=== PATIENT | male | born 1945 | race Caucasian/White ===

== ENCOUNTER → 2016-10-19 | Outpatient (CLI) | payer OTHER ==
[~2016-10-19] VITALS: Ht 162.6 cm; Wt 97.8 kg
[~2016-10-19] MED LIST: ADVAIR 250-501 EACH IH; ALBUTEROL NEB; ALBUTEROL SUL5 MG/M1 IH; ALBUTEROL2.5 MG/0.5 INH; AMBIEN 10 MG TA10 MG PO; AMBIEN 5 MG TABL5 M1 PO; AMITRIPTYLINE H25 M2 PO; AMITRIPTYLINE H50 M2 PO; ATORVASTATIN PO; AVAPRO 150 MG150 M1 PO; BENEFIBER1 EAC1 PO; CIPRO500 MG PO; COMPOUNDED CREAM; COUMADIN 3 MG TA3 MG PO; DIOVAN 80 MG TA80 M1 PO; DIOVAN PO; ENDOCET 10-3251 EACH PO; FAMCYCLOVIR 50500 M1 PO; FLOMAX0.4 MG PO; LASIX 40 MG TAB40 M2 PO; LEVAQUIN 500 M500 M2 PO; LIDODERM 5%1 PATC1 TOP; LIPITOR 20 MG T20 M1 PO; LYRICA 75 MG CA75 MG PO; MELOXICAM7.5 MG PO; METFORMIN PO; MIRALAX17 GM PO; NEURONTIN 300300 M1 PO; NORVASC10 MG PO; OXYCODONE HCL 55 MG PO; OXYCODONE HCL E10 MG PO; OXYCODONE-ACET1 EAC2 PO; OXYCODONE-ACET1 EACH PO; OXYCONTIN10 M1 PO; OXYCONTIN20 M1 PO; OXYGEN; OXYGEN MISCELL; PERCOCET 10-321 EACH PO; PERCOCET PO; POTASSIUM20 PO; PREDNISONE 10 M10 MG PO; PREDNISONE 20 M20 MG PO; PREDNISONE 5 MG5 M1 PO; ROXICODONE5 MG PO; SENOKOT-S1 TA1 PO; SERTRALINE HCL50 MG PO; SPIRIVA INH; TAMIFLU75 MG PO; TRIAMTERENE-HC1 EAC1 PO; VALIUM5 MG PO; VENTOLIN HFA 1818 GM INH; VENTOLIN HFA INH8 GM IH; VOLTAREN GEL 1100 G1 TOP; VOLTAREN GEL 1100 G2 TOP; VOLTAREN GEL 1100 GM TOP; VYTORIN 10-101 EACH PO; VYTORIN 10-201 EACH PO; ZOLOFT100 MG PO; ZOLOFT50 MG PO
--- NOTE | ~2016-10-19 | HPC ---
[facility] [address] [place] [address] PAIN MANAGEMENT CONSULTATION Name: DONNY GARCIA Room #: REG NICK CalvoJocy#: [id number] Admission: 10/19/16 Attend Phys: Spenser Leyva MD Discharge: Date of : 41 Report #: [id number] THIS REPORT FOR: //name// CC: RIVER Leyva DATE OF SERVICE: 10/19/2016 Followup visit for chronic low back pain with radiculopathy and diffuse osteoarthritis. 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 He has had severe macular degeneration and had been progressively developing problems with his right eye. His left eye is now also considered to be legally blind, although he has some recognition of shapes, color and is able to negotiate spaces. He is unable to read other than with the use of magnifying glass in the high lighting. Medication is being provided for his chronic pain. He has mid back pain, right shoulder pain, bilateral knee pain. Injections have been now some time given his good response to medication. CURRENT MEDICATIONS: OxyContin 10 mg b.i.d., oxycodone 5/325 number 2 tablets per day for breakthrough pain. This totals 30 mg of oxycodone for a total of 45 morphine mg equivalents per day. We discussed the importance of safeguarding all medication, we have reviewed the opioid crisis, we have reviewed the CDC guidelines today in some detail. PHYSICAL EXAMINATION: He is on 2 liters of nasal canula and walks without dyspnea. He denies any pain today and his pain score is 0 with movement. He has taken his medications. Blood pressure is 115/59, heart rate is 115, BMI is 37.0. IMPRESSION: 1. Chronic back pain related to spondylosis. 2. History of compression fracture, chronic T5. 3. Asthma and chronic obstructive pulmonary disease, currently on oxygen round the clock. 4. Type 2 diabetes. 5. Osteoporosis. 6. Macular degeneration with blindness. [facility] [address] [place] [address] PAIN MANAGEMENT CONSULTATION Name: LACHO GARCIACarol Medina Room #: REG NICK Montoya#: [id number] Admission: 10/19/16 Attend Phys: Spenser Leyva MD Discharge: Date of : 43 Report #: [id number] PLAN: I have renewed his medications under terms of our opioid agreement. I plan to see him back in the clinic in 3 months. By: 1713 0847 Spenser Leyva MD /nt
[2016-10-19 13:09] VITALS: BP 115/59
== END | disposition home or self-care (01) ==
LOC: PAIN 07:47
DX: M54.9 Dorsalgia, unspecified (principal); G89.29 Other chronic pain; M47.896 Other spondylosis, lumbar region; Z87.311 Personal history of (healed) other pathological fracture; J44.9 Chronic obstructive pulmonary disease, unspecified; J45.909 Unspecified asthma, uncomplicated; E11.9 Type 2 diabetes mellitus without complications; M81.0 Age-related osteoporosis without current pathological fracture; H35.30 Unspecified macular degeneration; Z87.891 Personal history of nicotine dependence

== ENCOUNTER 2016-12-01 17:32 | Inpatient (IN) | payer OTHER ==
[~2016-12-01] VITALS: Ht 162.6 cm; Wt 100.0 kg
[2016-12-01] VITALS (8 sets, daily range): BP systolic 78–151; BP diastolic 52–70
--- NOTE | ~2016-12-01 | EKG ---
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
--- NOTE | ~2016-12-01 | H ---
[facility] [place] [address] HISTORY AND PHYSICAL Name: DONNY GARCIA Room #: 251-P [facility] IN M.R.#: [id number] Admission: 12/01/16 Attend Phys: Lauro Mandujano MD Discharge: Date of : 43 Report #: [id number] THIS REPORT FOR: //name// CC: Lauro Mandujano DATE OF SERVICE: 12/02/2016 DATE OF SERVICE: 12/02/2016 CHIEF COMPLAINT: Shortness of air. HISTORY OF PRESENT ILLNESS: The patient is a 71-year-old male well known to me who presented to emergency department with increasing shortness of air, awoken from sleep in the morning yesterday. He felt some low back pain and pain in his upper back as well. He does have a history of COPD. He is not aware of any fevers or chills. He uses home oxygen, uses around 2-3 liters. He had raised to 5 prior to coming in. He has not had any significant sputum production or fevers. PAST MEDICAL HISTORY: 1. COPD. 2. Non-insulin dependent diabetes mellitus. 3. Hypertension. 4. Hyperlipidemia. 5. Osteoporosis. 6. Degenerative arthritis. 7. Prior ruptured diverticula with colostomy in 2005, reversal in 2006. 8. Depression. 9. Prior kidney stones. 10. Prior compression fracture with kyphoplasty in 2016. 11. Chronic back pain. MEDICATIONS: OxyContin 10 mg b.i.d., Percocet 5/325 p.r.n., albuterol solution q.i.d., Advair 250/50 one puff b.i.d., prednisone 20 mg a day, Ventolin HFA 2 puffs q. 4 p.r.n., valsartan 160 mg a day, Lasix 40 mg a day, Zoloft 50 mg a day, atorvastatin 20 mg a day, Spiriva 1 cap daily, potassium 20 mEq a day, Voltaren gel q.i.d. ALLERGIES: CODEINE, PIPERACILLIN, GABAPENTIN. SOCIAL HISTORY: He is a nonsmoker, nondrinker, no recreational drugs. REVIEW OF SYSTEMS: CONSTITUTIONAL: Again, no fever or chills. HEENT: No headaches or visual changes. CHEST: Per above. [address] [address] HISTORY AND PHYSICAL Name: DONNY GARCIA Room #: [address] [place] [address] [place] [facility].#: [id number] Admission: 12/01/16 Attend Phys: Lauro Mandujano MD Discharge: Date of : 43 Report #: [id number] GASTROINTESTINAL: No nausea, vomiting, diarrhea or constipation. GENITOURINARY: No burning or frequency. EXTREMITIES: No new swelling or joint pain. SKIN: No new rashes or wounds. NEUROLOGIC: No new numbness or weakness. PHYSICAL EXAMINATION: VITAL SIGNS: In the ER, blood pressure initially 78/52, is currently 99/57. He was on 5 liters of O2 and his sats were 96%. His pulse was 122, his respiratory rate was 20. He was afebrile. GENERAL: Currently, the patient is awake and alert, in no acute distress. He is feeling more comfortable. His mucous membranes are dry. NECK: Supple without increased central venous pressure. CHEST: Shows decreased breath sounds in the bases. No focal crackles or wheezes. CARDIOVASCULAR: Tachycardia with rate of 100 right now. ABDOMEN: Morbidly obese, but soft, nondistended, nontender, no masses. Bowel sounds are active. EXTREMITIES: Show 1+ edema in both extremities. His pulses are intact. LABORATORY DATA: His EKG shows sinus tachycardia with a rate of 119, no ST segment changes. His ABG; pH 7.397, pCO2 of 38.8 and pO2 of 89. His lactic acid was 3.51 on ABG on admission. His sodium 136, potassium 4.0, chloride 100, bicarbonate 25, BUN 40, creatinine 2.7, glucose 179, calcium 8.8. Troponin less than 0.04. Urinalysis is essentially normal. His repeat lactic acid level was normal at 1.17. Chest x-ray shows infrahilar opacities likely scarring versus atelectasis versus early infiltrate. ASSESSMENT: 1. Severe sepsis with septic shock, started on the fluid bolus per protocol. I suspect pulmonary is source. We gave him a dose of Levaquin. We will do repeat chest x-ray this morning, do breathing treatments. 2. Acute kidney injury due to septic shock, fluids. We will monitor that, should improve. He is making urine. 3. Leukocytosis due to septic shock, as above. 4. Chronic obstructive pulmonary disease. Continue his breathing treatments and steroids. 5. History of coronary artery disease, we will consult cardiology just to make sure we are not overlooking anything. 6. Chronic back pain. We will continue his oxycodone or OxyContin. By: 0712 0858 Lauro Mandujano MD /nt
--- NOTE | ~2016-12-01 | 2DMMODE ---
[facility] [place] [address] 2 D/M-MODE ECHOCARDIOGRAM Name: DONNY GARCIA Carol Room #: 456-P [facility] [place] [facility]#: [id number] Admission: 12/01/16 Attend Phys: Lauro Mandujano, Discharge: Date of : 43 Date of Service: 12/03/16 0824 Report #: [id number] THIS REPORT FOR: //name// APPROVED REPORT Study performed: 12/03/2016 05:43:42 EXAM: Comprehensive 2D, Doppler, and color-flow Echocardiogram Patient Location: Bedside Room #: 251 Status: routine Other Information Study Quality: Adequate Indications Dyspnea. Hx: COPD, HTN, HLP, DM, obesity 2D Dimensions RVDd: 37.48 mm LVEF(%): 52.90 (>50%) IVSd: 13.26 (7-11mm) LVOT Diam: 19.61 (18-24mm) LVDd: 52.69 mm PWd: 11.82 (7-11mm) Ascending Ao: 32.89 (22-36mm) LVDs: 38.24 (25-40mm) Aortic Root: 32.76 mm Pedersen's LVEF: 52.90 % Volumes Left Atrial Volume (Systole) Single Plane 4CH: 31.96 mL Single Plane 2CH: 47.19 mL LA ESV Index: 21.00 mL/m2 Aortic Valve AoV Peak Jermain.: 1.66 m/s AO Peak Gr.: 10.99 mmHg LVOT Max P.98 mmHg LVOT Max V: 1.32 m/s MELISA Vmax: 2.41 cm2 Mitral Valve E/A Ratio: 0.6 MV Decel. Time: 213.86 ms MV E Max Jermain.: 0.79 m/s MV A Jermain.: 1.30 m/s MV PHT: 62.02 ms IVRT: 55.36 ms [facility] [employer] [address] 2 D/M-MODE ECHOCARDIOGRAM Name: DONNY GARCIA Carol Room #: 456-P [facility] IN [facility]#: [id number] Admission: 12/01/16 Attend Phys: Lauro Mandujano, Discharge: Date of : 43 Date of Service: 12/03/16 0824 Report #: [id number] Pulmonary Valve PV Peak Jermain.: 1.08 m/s PV Peak Gr.: 4.67 mmHg Pulmonary Vein P Vein S: 0.66 m/s P Vein A: 0.48 m/s P Vein D: 0.55 m/s P Vein A Dur.: 120.0 msec P Vein S/D Ratio: 1.20 Tricuspid Valve TR Peak Jermain.: 3.11 m/s TR Peak Gr.: 38.59 mmHg Left Ventricle The left ventricle is normal size. There is normal LV segmental wall motion. Mild concentric left ventricular hypertrophy. Left ventricular systolic function is normal. LVEF is 55%. Mild diastolic dysfunction is present (impaired relaxation pattern). Right Ventricle The right ventricle is normal size. The right ventricular systolic function is normal. Atria The left atrium size is normal. The right atrium size is normal. Aortic Valve Aortic valve is mildly calcified. No aortic regurgitation is present. There is no aortic valvular stenosis. Mitral Valve Mitral valve leaflets are mildly calcified. Mild mitral regurgitation. No evidence of mitral valve stenosis. Tricuspid Valve The tricuspid valve is normal in structure. There is mild tricuspid regurgitation. There is mild-moderate pulmonary hypertension with an estimated PAP of 39mmHg plus the right atrial pressure. Pulmonic Valve Pulmonic valve is not well visualized. Trace pulmonic regurgitation. Great Vessels The aortic root is normal in size. The ascending aorta is normal in [facility] [address] [place] [address] 2 D/M-MODE ECHOCARDIOGRAM Name: DONNY GARCIA Room #: 456-P [facility] [place] [facility]#: [id number] Admission: 12/01/16 Attend Phys: Lauro Mandujano, Discharge: Date of : 41 Date of Service: 12/03/16 0824 Report #: [id number] size. IVC is not well visualized. Pericardium There is no pericardial effusion. <Conclusion> The left ventricle is normal size. Mild concentric left ventricular hypertrophy. Left ventricular systolic function is normal. The right ventricle is normal size. The left atrium size is normal. The right atrium size is normal. Aortic valve is mildly calcified. There is no aortic valvular stenosis. Mild mitral regurgitation. There is mild tricuspid regurgitation. There is mild-moderate pulmonary hypertension with an estimated PAP of 39mmHg plus the right atrial pressure. <ELECTRONICALLY SIGNED> By: David Crane MD 12/03/16823 3 3 David Crane MD /INF
[2016-12-01 18:03] LABS: ABSOLUTE NEUTROPHILS 12.9 thou/uL (1.4-8.2); BASOPHILS 0.7 % (0.0-2.0); EOSINOPHILS 1.3 % (0.0-3.0); HEMATOCRIT 34.6 % (42.0-52.0); HEMOGLOBIN 11.4 gm/dL (14.0-18.0); LYMPHOCYTES 10.5 % (24.0-44.0); MCH 29.1 pg (26.0-34.0); MCHC 32.9 g/dL (28.0-37.0); MCV 88.3 fL (80.0-100.0); MONOCYTES 9.1 % (1.0-8.0); PLATELET COUNT 196 thou/uL (150-400); POLYS 78.4 % (36.0-66.0); RBC 3.92 mil/uL (4.50-6.00); RDW 15.7 % (10.5-14.5); WBC 16.4 thou/uL (4.0-11.0)
[2016-12-01 18:09] LABS: CALCIUM 8.8 mg/dL (8.5-10.1); CREATININE 2.7 mg/dL (0.7-1.3)
[2016-12-01 18:25] LABS: MANUAL DIFF NO
[2016-12-01 19:05] LABS: URINE BILIRUBIN NEGATIVE (Negative); URINE BLOOD TRACE (Negative); URINE COLOR YELLOW; URINE GLUCOSE-RANDOM* NEGATIVE (Negative); URINE KETONES NEGATIVE (Negative); URINE NITRITE NEGATIVE (Negative); URINE PROTEIN (DIPSTICK) NEGATIVE (Negative); URINE SPECIFIC GRAVITY 1.025 (1.003-1.035); URINE UROBILINOGEN 0.2 E.U./dl (0.2-1.0)
[2016-12-01 19:14] LABS: ABG SAMPLE TYPE ARTERIAL; BE(vivo) -1.3 mmol/L (-2 to +3); HCO3 23.3 mmol/L (22.0-26.0); O2(CT) 16.3 mL/dL (15.0-23.0); PCO2 38.8 mmHg (35.0-45.0); PO2 89.3 mmHg (80.0-100.0); pH 7.397 (7.360-7.450); sO2 96.8 % (92.0-98.0); tCO2 24.5 mmol/L (24.0-30.0)
[2016-12-01 19:15] LABS: LACTATE 3.51 mmol/L (0.5-2.0); STICK SITE R.RADIAL
[2016-12-01 19:49] LABS: ALBUMIN 3.5 g/dL (3.4-5.0); DIRECT BILIRUBIN 0.1 mg/dL (<0.1-0.3); TOTAL BILIRUBIN 0.5 mg/dL (<0.1-1.0); TOTAL PROTEIN 6.7 g/dL (6.4-8.2)
[2016-12-02] VITALS (24 sets, daily range): BP systolic 78–136; BP diastolic 48–85
[2016-12-02 07:04] LABS: HEMATOCRIT 30.5 % (42.0-52.0); HEMOGLOBIN 10.2 gm/dL (14.0-18.0); MCH 29.8 pg (26.0-34.0); MCHC 33.5 g/dL (28.0-37.0); MCV 89.1 fL (80.0-100.0); RBC 3.42 mil/uL (4.50-6.00); RDW 15.4 % (10.5-14.5)
[2016-12-02 07:25] LABS: CALCIUM 7.7 mg/dL (8.5-10.1); CREATININE 2.2 mg/dL (0.7-1.3)
[2016-12-02 07:29] LABS: POTASSIUM 5.2 mmol/L (3.5-5.1)
[2016-12-02] MEDS ORDERED: FLOMAX0.4 MG PO (15:29)
[2016-12-02] MEDS ORDERED: VENTOLIN HFA 1818 GM INH (15:34)
[2016-12-02] MEDS ORDERED: OXYGEN MISCELL (15:36)
[2016-12-02] MEDS ORDERED: ADVAIR 250-501 EACH INH (15:41)
[2016-12-03] VITALS (15 sets, daily range): BP systolic 81–132; BP diastolic 55–73
[2016-12-03 04:37] LABS: CALCIUM 7.7 mg/dL (8.5-10.1); CREATININE 1.7 mg/dL (0.7-1.3); POTASSIUM 4.9 mmol/L (3.5-5.1)
[2016-12-04 07:36] VITALS: BP 123/71
[2016-12-04 12:00] VITALS: BP 116/58
[2016-12-04 14:57] VITALS: BP 116/58
[2016-12-04 15:10] VITALS: BP 105/62
[2016-12-04 19:44] VITALS: BP 121/55
[2016-12-05 04:03] VITALS: BP 128/76
[2016-12-05] MEDS ORDERED: LEVAQUIN 500 M500 M2 PO (07:00)
[2016-12-05 07:25] VITALS: BP 149/75
[2016-12-05 08:54] LABS: HEMATOCRIT 27.2 % (42.0-52.0); HEMOGLOBIN 9.3 gm/dL (14.0-18.0); MCH 30.1 pg (26.0-34.0); MCHC 34.2 g/dL (28.0-37.0); MCV 88.2 fL (80.0-100.0); RBC 3.09 mil/uL (4.50-6.00); RDW 15.9 % (10.5-14.5); WBC 8.5 thou/uL (4.0-11.0)
[2016-12-05 09:00] LABS: CALCIUM 7.5 mg/dL (8.5-10.1); CREATININE 1.3 mg/dL (0.7-1.3); POTASSIUM 3.6 mmol/L (3.5-5.1)
[2016-12-05 11:44] VITALS: BP 127/73
[2016-12-05 15:56] VITALS: BP 144/76
[2016-12-05 19:44] VITALS: BP 129/65
[2016-12-06 04:10] VITALS: BP 122/52
[2016-12-06 07:48] VITALS: BP 121/69
[2016-12-06 08:57] VITALS: BP 116/58
== END 2016-12-06 12:35 | disposition home health service (06) | DRG 871 ==
LOC: ER 17:32 → EROBS 19:29 → ICU 19:29 → 4W 12-03 15:43
PROVIDERS: Emergency Medicine; Family Medicine
DX: A41.9 Sepsis, unspecified organism (principal); R65.21 Severe sepsis with septic shock; J18.9 Pneumonia, unspecified organism; J96.01 Acute respiratory failure with hypoxia; N17.9 Acute kidney failure, unspecified; J44.1 Chronic obstructive pulmonary disease with (acute) exacerbation; J44.0 Chronic obstructive pulmonary disease with (acute) lower respiratory infection; E11.22 Type 2 diabetes mellitus with diabetic chronic kidney disease; I12.9 Hypertensive chronic kidney disease with stage 1 through stage 4 chronic kidney disease, or unspecified chronic kidney disease; N18.9 Chronic kidney disease, unspecified; E78.5 Hyperlipidemia, unspecified; M81.0 Age-related osteoporosis without current pathological fracture; F32.9 Major depressive disorder, single episode, unspecified; G89.29 Other chronic pain; M48.00 Spinal stenosis, site unspecified; M19.90 Unspecified osteoarthritis, unspecified site; I25.10 Atherosclerotic heart disease of native coronary artery without angina pectoris; K57.90 Diverticulosis of intestine, part unspecified, without perforation or abscess without bleeding; Z96.659 Presence of unspecified artificial knee joint; Z98.52 Vasectomy status; Z87.891 Personal history of nicotine dependence; Z79.899 Other long term (current) drug therapy; Z93.3 Colostomy status; Z87.442 Personal history of urinary calculi; Z88.6 Allergy status to analgesic agent; Z88.8 Allergy status to other drugs, medicaments and biological substances; Z88.1 Allergy status to other antibiotic agents
CPT/HCPCS: 10047; 10078

== ENCOUNTER → 2016-12-15 | Outpatient (CLI) | payer OTHER ==
[~2016-12-15] MED LIST changes: +ADVAIR 250-501 EACH INH
== END ==
LOC: RAD 13:08
DX: R05 Cough (principal)

== ENCOUNTER 2016-12-19 20:34 | Observation (INO) | payer OTHER ==
[~2016-12-19] VITALS: Ht 162.6 cm; Wt 97.5 kg
--- NOTE | ~2016-12-19 | EKG ---
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 : 1945 Requested By: Augusto Blevins Order Number: [id number] MD: Franklin Morrison Measurements Intervals [place] Rate: 112 P: 50 [place]: 147 QRS: -82 QRSD: 144 T: 32 QT: 353 QTc: 482 Interpretive Statements Sinus tachycardia RBBB and LAFB Compared to ECG 12/01/2016 17:43:47 No significant changes Electronically Signed On 12-21-2016 8:34:39 CDT by Franklin Morrison [email or web address] <ELECTRONICALLY SIGNED> By: Franklin Morrison MD, [facility] 12/21/16 0834 44 44 Franklin Morrison MD, [facility] /EPI
[2016-12-19 20:35] VITALS: BP 118/54
[2016-12-19 21:26] LABS: HEMATOCRIT 26.5 % (42.0-52.0); HEMOGLOBIN 9.1 gm/dL (14.0-18.0); MCH 30.2 pg (26.0-34.0); MCHC 34.3 g/dL (28.0-37.0); MCV 88.2 fL (80.0-100.0); RBC 3.01 mil/uL (4.50-6.00); RDW 15.8 % (10.5-14.5); WBC 10.1 thou/uL (4.0-11.0)
[2016-12-19 21:34] LABS: ANION GAP 8 mmol/L (7-16); BUN 36 mg/dL (7-18); CALCIUM 8.8 mg/dL (8.5-10.1); CHLORIDE 103 mmol/L (98-107); CO2 26 mmol/L (21-32); CREATININE 2.2 mg/dL (0.7-1.3); GLUCOSE 191 mg/dL (74-106); POTASSIUM 4.5 mmol/L (3.5-5.1); SODIUM 137 mmol/L (136-145)
[2016-12-19 21:42] LABS: TROPONIN-I < 0.04 ng/mL (<0.04-0.07)
[2016-12-19 23:40] VITALS: BP 122/45
[2016-12-20 00:15] VITALS: BP 130/65
[2016-12-20 04:12] VITALS: BP 113/57
[2016-12-20 08:30] VITALS: BP 90/50
[2016-12-20 16:00] VITALS: BP 90/51
[2016-12-20 20:00] VITALS: BP 100/56
[2016-12-21 04:00] VITALS: BP 97/51
[2016-12-21 06:21] LABS: HEMATOCRIT 25.2 % (42.0-52.0); HEMOGLOBIN 8.6 gm/dL (14.0-18.0); MCH 30.3 pg (26.0-34.0); MCHC 34.3 g/dL (28.0-37.0); MCV 88.3 fL (80.0-100.0); RBC 2.85 mil/uL (4.50-6.00); RDW 16.5 % (10.5-14.5); WBC 7.3 thou/uL (4.0-11.0)
[2016-12-21 06:36] LABS: CALCIUM 7.6 mg/dL (8.5-10.1); CREATININE 1.7 mg/dL (0.7-1.3); POTASSIUM 4.2 mmol/L (3.5-5.1)
[2016-12-21 08:00] VITALS: BP 119/70
[2016-12-21 08:05] VITALS: BP 102/50
[2016-12-21 08:10] VITALS: BP 127/78
== END 2016-12-21 15:23 | disposition home health service (06) ==
LOC: ER 20:34 → EROBS 23:03 → 4E 23:03
PROVIDERS: Emergency Medicine; Family Medicine
DX: E86.0 Dehydration (principal); E11.22 Type 2 diabetes mellitus with diabetic chronic kidney disease; I12.9 Hypertensive chronic kidney disease with stage 1 through stage 4 chronic kidney disease, or unspecified chronic kidney disease; N18.9 Chronic kidney disease, unspecified; N17.9 Acute kidney failure, unspecified; I95.1 Orthostatic hypotension; E78.5 Hyperlipidemia, unspecified; M19.90 Unspecified osteoarthritis, unspecified site; J44.9 Chronic obstructive pulmonary disease, unspecified; Z23 Encounter for immunization

== ENCOUNTER → 2017-02-04 | Outpatient (CLI) | payer OTHER ==
--- NOTE | ~2017-02-04 | HPC ---
[facility] [address] [address] PAIN MANAGEMENT CONSULTATION Name: DONNY GARCIA Room #: REG NICK Lindsay#: [id number] Admission: 02/04/17 Attend Phys: Spenser Leyva MD Discharge: Date of : 43 Report #: [id number] THIS REPORT FOR: //name// CC: Marlena Leyva DATE OF SERVICE: 02/04/2017 DATE OF REGISTRATION: 02/04/2017. REASON FOR VISIT: Followup visit for management of high-risk medication. SUBJECTIVE: The patient returns to pain clinic today for renewal of his pain medication. Providing with OxyContin 10 mg twice a day and oxycodone 5/325 also 2 tablets per day for breakthrough pain in order to treat spondylitic pain. He is doing well with this. His pain score today is 0 with medication. He is grateful for the relief that he gets. He has been quite sick over the course of the last month or so. He had hypotension and pneumonia. He was admitted to the hospital, was in the ICU for 3 days and was in the hospital for a total of 6 days. He was discharged to home after that stay. Unfortunately, he had acute renal insufficiency related to hypovolemia which responded to volume. He is now back home monitoring his fluid intakes carefully. He has been suffering with loss of vision. He has been getting injections for problems with macular degeneration. 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 He is handling this unfortunate injury with bebe and courage. He is here today with his , Samantha who has been very supportive. MEDICATIONS: Reviewed and reconciled. All medications prescribed by myself and Dr. Mandujano. He is on 3 L of nasal cannula oxygen continuously and has an oxygen concentrator. PHYSICAL EXAMINATION: GENERAL: He is pleasant, outgoing. His history is clear, and he does not appear to be overmedicated or depressed today. He is in a wheelchair. VITAL SIGNS: His blood pressure is 109/56, heart rate is 104. BMI is over 35. CHEST: Clear with distant breath sounds. He is wearing nasal cannula oxygen. HEART: His cardiac rhythm is regular. MUSCULOSKELETAL: He has tenderness throughout his right mid back, tenderness in both knees and ankles. Mild edema is noted. There is some pain in his right shoulder as well as in his wrists. IMPRESSION: [facility] [address] [place] [address] PAIN MANAGEMENT CONSULTATION Name: DONNY GARCIA Room #: REG NICK ThompsonTavo#: [id number] Admission: 02/04/17 Attend Phys: Spenser Leyva MD Discharge: Date of : 43 Report #: [id number] 1. Chronic back pain related to spondylosis. 2. Osteoarthritis with pain in multiple joints including shoulder, wrists and knees. 3. Asthma, chronic obstructive pulmonary disease on hxwnt-mrv-ssknq oxygen. 4. Type 2 diabetes. 5. Macular degeneration with blindness. 6. Management of high-risk medication under terms of an opioid agreement. Medications were renewed under terms of our agreement. The opioid crisis was reviewed, and the importance of safeguarding medications discussed. Plan to see him back in 3 months. By: 1658 [id number] Spenser Leyva MD /nt
[2017-02-04 13:44] VITALS: BP 109/56
== END | disposition home or self-care (01) ==
LOC: PAIN 01-14 09:20
DX: Z76.0 Encounter for issue of repeat prescription (principal); M47.896 Other spondylosis, lumbar region; M54.9 Dorsalgia, unspecified; G89.29 Other chronic pain; E11.319 Type 2 diabetes mellitus with unspecified diabetic retinopathy without macular edema; J44.9 Chronic obstructive pulmonary disease, unspecified; M19.90 Unspecified osteoarthritis, unspecified site; H35.30 Unspecified macular degeneration; Z79.891 Long term (current) use of opiate analgesic; Z88.8 Allergy status to other drugs, medicaments and biological substances

== ENCOUNTER → 2017-03-16 | Outpatient (CLI) | payer OTHER | LOC: RAD 13:49 | DX: S22.32XA Fracture of one rib, left side, initial encounter for closed fracture (principal); J18.9 Pneumonia, unspecified organism; J44.9 Chronic obstructive pulmonary disease, unspecified; J98.11 Atelectasis; X58.XXXA Exposure to other specified factors, initial encounter; Y93.89 Activity, other specified; Y92.89 Other specified places as the place of occurrence of the external cause; Y99.8 Other external cause status ==

== ENCOUNTER 2017-03-20 07:42 | Inpatient (IN) | payer OTHER ==
[~2017-03-20] VITALS: Ht 160 cm; Wt 96.2 kg
--- NOTE | ~2017-03-20 | EKG ---
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 : 1945 Requested By: Augusto Blevins Order Number: [id number] MD: Franklin Morrison Measurements Intervals [place] Rate: 100 P: 43 [place]: 177 QRS: -90 QRSD: 150 T: 17 QT: 374 QTc: 483 Interpretive Statements Sinus tachycardia Atrial premature complex RBBB and LAFB Compared to ECG 12/19/2016 20:45:31 Atrial premature complex(es) now present Electronically Signed On 03-20-2017 12:37:35 CDT by Franklin Morrison [email or web address] <ELECTRONICALLY SIGNED> By: Franklin Morrison MD, [facility] 03/20/17 1237 7 Franklin Morrison MD, [facility] /EPI
[2017-03-20 07:46] VITALS: BP 132/61
[2017-03-20 09:22] LABS: HEMATOCRIT 31.3 % (42.0-52.0); HEMOGLOBIN 10.5 gm/dL (14.0-18.0); MCH 29.5 pg (26.0-34.0); MCHC 33.5 g/dL (28.0-37.0); MCV 88.2 fL (80.0-100.0); PLATELET COUNT 256 thou/uL (150-400); RBC 3.55 mil/uL (4.50-6.00); RDW 15.4 % (10.5-14.5); WBC 13.9 thou/uL (4.0-11.0)
[2017-03-20 09:23] LABS: MANUAL DIFF YES
[2017-03-20 09:29] LABS: ANION GAP 8 mmol/L (7-16); BUN 38 mg/dL (7-18); CALCIUM 8.8 mg/dL (8.5-10.1); CHLORIDE 100 mmol/L (98-107); CO2 24 mmol/L (21-32); CREATININE 2.3 mg/dL (0.7-1.3); GLUCOSE 103 mg/dL (74-106); POTASSIUM 4.7 mmol/L (3.5-5.1); SODIUM 132 mmol/L (136-145)
[2017-03-20 09:38] LABS: TROPONIN-I < 0.04 ng/mL (<0.04-0.07)
[2017-03-20] MEDS ORDERED: DIOVAN 80 MG TA80 M1 PO (09:46)
[2017-03-20] MEDS ORDERED: CEFDINIR300 MG PO (09:47)
[2017-03-20] MEDS ORDERED: OXYCODONE HCL15 MG PO ×2 (09:51→14:56)
[2017-03-20 09:54] LABS: ABSOLUTE NEUTROPHILS 8.9 thou/uL (1.4-8.2); ANISOCYTOSIS 2+; METAMYELOCYTES 1 %; POLYCHROMASIA OCCASIONAL; TOTAL CELL COUNT 100
[2017-03-20 11:38] VITALS: BP 97/43
[2017-03-20 12:05] VITALS: BP 88/45
[2017-03-20 12:15] VITALS: BP 119/53
[2017-03-20 16:00] VITALS: BP 119/43
[2017-03-20 19:14] VITALS: BP 122/47
[2017-03-21 03:27] VITALS: BP 97/52
[2017-03-21 04:34] LABS: HEMATOCRIT 28.5 % (42.0-52.0); HEMOGLOBIN 9.5 gm/dL (14.0-18.0); MCH 29.2 pg (26.0-34.0); MCHC 33.3 g/dL (28.0-37.0); MCV 87.6 fL (80.0-100.0); PLATELET COUNT 227 thou/uL (150-400); RBC 3.25 mil/uL (4.50-6.00); RDW 14.9 % (10.5-14.5); WBC 11.3 thou/uL (4.0-11.0)
[2017-03-21 04:37] LABS: MANUAL DIFF YES
[2017-03-21 04:45] LABS: CALCIUM 8.6 mg/dL (8.5-10.1); CREATININE 2.1 mg/dL (0.7-1.3); POTASSIUM 4.7 mmol/L (3.5-5.1)
[2017-03-21 06:26] LABS: ABSOLUTE NEUTROPHILS 8.5 thou/uL (1.4-8.2); ANISOCYTOSIS SLIGHT; TOTAL CELL COUNT 100
[2017-03-21 09:05] VITALS: BP 111/43
[2017-03-21 16:00] VITALS: BP 107/56
[2017-03-21 19:24] VITALS: BP 97/52
[2017-03-22 04:30] VITALS: BP 114/60
[2017-03-22 05:20] VITALS: BP 163/75
[2017-03-22 06:23] LABS: HEMATOCRIT 27.5 % (42.0-52.0); HEMOGLOBIN 9.4 gm/dL (14.0-18.0); MCH 29.7 pg (26.0-34.0); MCHC 34.2 g/dL (28.0-37.0); MCV 86.8 fL (80.0-100.0); PLATELET COUNT 235 thou/uL (150-400); RBC 3.17 mil/uL (4.50-6.00); RDW 14.8 % (10.5-14.5); WBC 9.8 thou/uL (4.0-11.0)
[2017-03-22 06:40] LABS: CALCIUM 8.7 mg/dL (8.5-10.1); CREATININE 1.6 mg/dL (0.7-1.3); MANUAL DIFF YES; POTASSIUM 4.4 mmol/L (3.5-5.1)
[2017-03-22 07:53] LABS: ABSOLUTE NEUTROPHILS 6.9 thou/uL (1.4-8.2); ANISOCYTOSIS 1+; METAMYELOCYTES 2 %; OVALOCYTES FEW; TOTAL CELL COUNT 100
[2017-03-22 08:00] VITALS: BP 125/47
[2017-03-22 15:00] VITALS: BP 120/62
[2017-03-22 20:00] VITALS: BP 121/55
[2017-03-23 04:07] VITALS: BP 132/54
[2017-03-23 08:54] VITALS: BP 152/58
[2017-03-23 15:30] VITALS: BP 124/63
[2017-03-23 19:29] VITALS: BP 137/62
[2017-03-24 01:31] VITALS: BP 126/59
[2017-03-24 03:34] VITALS: BP 139/62
[2017-03-24 07:30] VITALS: BP 145/60
[2017-03-24] MEDS ORDERED: VALIUM5 MG PO (08:06)
[2017-03-24 12:25] VITALS: BP 145/60
[2017-03-24 13:37] VITALS: BP 145/60
== END 2017-03-24 15:40 | disposition home health service (06) | DRG 542 ==
LOC: ER 07:42 → 4N 11:32 → EROBS 11:32 → 4N 12:07 → ENTRNSPT 03-24 15:32 → EDTRNSPTSTS 03-24 15:35 → 4N 03-24 15:40
PROVIDERS: Emergency Medicine; Internal Medicine Endocrinology, Diabetes & Metabolism
DX: M80.08XA Age-related osteoporosis with current pathological fracture, vertebra(e), initial encounter for fracture (principal); N17.0 Acute kidney failure with tubular necrosis; E11.9 Type 2 diabetes mellitus without complications; I10 Essential (primary) hypertension; E78.5 Hyperlipidemia, unspecified; J44.9 Chronic obstructive pulmonary disease, unspecified; M19.90 Unspecified osteoarthritis, unspecified site; G89.29 Other chronic pain; H91.93 Unspecified hearing loss, bilateral; H54.8 Legal blindness, as defined in USA; T38.0X5A Adverse effect of glucocorticoids and synthetic analogues, initial encounter; F32.9 Major depressive disorder, single episode, unspecified; Z87.01 Personal history of pneumonia (recurrent); Z88.5 Allergy status to narcotic agent; Z88.1 Allergy status to other antibiotic agents; Z85.828 Personal history of other malignant neoplasm of skin; Z88.8 Allergy status to other drugs, medicaments and biological substances; Z87.442 Personal history of urinary calculi; Z93.3 Colostomy status; Y92.89 Other specified places as the place of occurrence of the external cause; Z79.52 Long term (current) use of systemic steroids; Z98.52 Vasectomy status; Z23 Encounter for immunization
CPT/HCPCS: 10790

== ENCOUNTER 2017-04-01 10:19 | Inpatient (IN) | payer OTHER ==
[~2017-04-01] VITALS: Ht 162.6 cm; Wt 94.3 kg
--- NOTE | ~2017-04-01 | 2DMMODE ---
[facility] [address] [facility] [place] [address] 2 D/M-MODE ECHOCARDIOGRAM Name: DONNY AGRCIA Room #: 443-P [facility] IN ..#: [id number] Admission: 04/01/17 Attend Phys: Lauro Mandujano, Discharge: Date of : 41 Date of Service: 04/02/17 1035 Report #: [id number] THIS REPORT FOR: //name// APPROVED REPORT Study performed: 04/02/2017 06:53:40 EXAM: Limited 2D, Doppler, and color-flow Echocardiogram Patient Location: Bedside Room #: 3 Status: routine BSA: 2.00 HR: 101 bpm BP: 147/85 mmHg Rhythm: Tachycardia Other Information Study Quality: Technically Difficult Technically limited study due to no patient mobility, obesity. Indications Limited follow up echo for Short of breath, pulmonary pressures and EF. Hx:COPD, HTN, HLP, DM 2D Dimensions RVDd: 38.30 mm Aortic Valve AoV Peak Jermain.: 1.79 m/s AO Peak Gr.: 12.77 mmHg Tricuspid Valve TR Peak Jermain.: 2.65 m/s RAP Estimate: 5.00 mmHg TR Peak Gr.: 28.01 mmHg PA Pressure: 33.00 mmHg Left Ventricle The left ventricle is normal size. There is normal LV segmental wall motion. Mild concentric left ventricular hypertrophy. Left ventricular systolic function is normal. LVEF is 55-60%. Right Ventricle The right ventricle is normal size. The right ventricular systolic function is normal. [facility] [address] [place] [address] 2 D/M-MODE ECHOCARDIOGRAM Name: DONNY GARCIA Room #: 443-P [facility] IN ..#: [id number] Admission: 04/01/17 Attend Phys: Lauro Mandujano, Discharge: Date of : 41 Date of Service: 04/02/17 1035 Report #: [id number] Atria The left atrium size is normal. The right atrium size is normal. Aortic Valve The aortic valve is not well visualized. No aortic regurgitation is present. There is no aortic valvular stenosis. Mitral Valve Mitral valve leaflets are mildly calcified. Trace mitral regurgitation. Tricuspid Valve The tricuspid valve is normal in structure. Trace to mild tricuspid regurgitation. Estimated PAP is 30-35mmHg. Pulmonic Valve Pulmonic valve is not well visualized. Great Vessels IVC is normal in size and collapses >50% with inspiration. Pericardium There is no pericardial effusion. <Conclusion> The left ventricle is normal size. LVEF is 55-60%. The aortic valve is not well visualized. Mitral valve leaflets are mildly calcified. Trace mitral regurgitation. The tricuspid valve is normal in structure. Trace to mild tricuspid regurgitation. Estimated PAP is 30-35mmHg. Pulmonic valve is not well visualized. There is no pericardial effusion. <ELECTRONICALLY SIGNED> By: Abdirahman Rendon MD 04/02/17 1035 1035 1035 Abdirahman Rendon MD /INF
--- NOTE | ~2017-04-01 | HC ---
[facility] [address] [address] CONSULTATION Name: DONNY GARCIA Room #: 443-P ADM IN M.R.#: [id number] Admission: 04/01/17 Attend Phys: Lauro Mandujano MD Discharge: Date of : 43 Report #: [id number] THIS REPORT FOR: //name// CC: Ariel Mandujano DATE OF SERVICE: 04/01/2017 REASON FOR CONSULTATION: Dyspnea. IMPRESSION: 1. Dyspnea, multifactorial. 2. Atelectasis. 3. Chronic obstructive pulmonary disease. 4. Increasing peripheral edema. 5. Elevated D-dimer. 6. Anemia. PLAN: Pulmonary toilet, venous Dopplers of lower extremity, mild diurese and send him for spirometry. HISTORY OF PRESENT ILLNESS: A 72-year-old male admitted with shortness of breath when attempted kyphoplasty. The patient relates he has been off his Lasix and has had problems since that time. Worsening with some wheezing. He has not been recently on prednisone or antibiotics. No discolored sputum, fever or chills, whitish sputum. PAST MEDICAL HISTORY: Includes COPD, oot-zwgzace-wcbrjpabm diabetes, hypertension, hyperlipidemia, osteoporosis and depression. ALLERGIES: CODEINE, PIPERACILLIN AND GABAPENTIN. SOCIAL HISTORY: Positive tobacco, quit 30 years ago. Negative ETOH. No drugs of abuse. PAST SURGICAL HISTORY: Surgeries include surgery, ruptured abscess of colon with colostomy with reversion, tonsillectomy, total knee replacement and vasectomy. REVIEW OF SYSTEMS: Hypertension, hyperlipidemia, COPD, CKD, dyspnea, edema, diverticulosis and basal cell carcinoma. Lives with spouse. PHYSICAL EXAMINATION: EYES: Negative icterus. NECK: Negative JVD. Thyroid not enlarged. LUNGS: Showed decreased breath sounds bilaterally. [facility] [address] [place] [address] CONSULTATION Name: DONNY GARCIA Room #: 443-P ADM IN M.R.#: [id number] Admission: 04/01/17 Attend Phys: Lauro Mandujano MD Discharge: Date of : 43 Report #: [id number] HEART: Regular, without murmur. ABDOMEN: Bowel sounds present. EXTREMITIES: Showed positive edema. No clubbing or cyanosis. NEUROLOGIC: He is alert and oriented, overweight. VITAL SIGNS: Temperature 98.6, pulse 97, respiratory rate 16 and BP 126/53. By: 1852 0108 [place] MD /nt
--- NOTE | ~2017-04-01 | EKG ---
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 : 1945 Requested By: [place] Order Number: [id number] MD: Davide Ramirez Measurements Intervals [place] Rate: 96 P: 0 [place]: 128 QRS: -88 QRSD: 144 T: 17 QT: 380 QTc: 481 Interpretive Statements Sinus rhythm RBBB and LAFB Baseline wander in lead(s) V2,V3 Compared to ECG 03/20/2017 09:28:05 Sinus tachycardia no longer present Atrial premature complex(es) no longer present Electronically Signed On 04-02-2017 13:25:49 CDT by Davide Ramirez [email or web address] <ELECTRONICALLY SIGNED> By: Davide Ramirez MD 04/02/17 1325 1350 1350 Davide Ramirez MD /EPI
--- NOTE | ~2017-04-01 | HC ---
[facility] [place] [address] CONSULTATION Name: DONNY GARCIA Room #: 443-P [facility] IN M.R.#: [id number] Admission: 04/05/17 Attend Phys: Lauro Mandujano MD Discharge: Date of : 41 Report #: [id number] THIS REPORT FOR: //name// CC: Ariel Mandujano DATE OF SERVICE: 04/05/2017 REASON FOR CONSULTATION: Zvjtq-lv-vbxpgqa kidney disease. HISTORY OF PRESENT ILLNESS: The patient is for well known to our service. I have seen him before in the hospital. He has been followed in our office previously by Dr. Tian. He has a baseline creatinine of about 2. He was admitted with a compression fracture of his thoracic spine. He was felt to be volume overloaded, which I am sure he was. He was given IV Lasix, but also given naproxen and continued on losartan. This combination led to decreased renal perfusion and increased creatinine. 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 HOME MEDICATIONS: Listed as albuterol inhaler, atorvastatin 20 mg daily, diazepam 5 mg daily, furosemide 40 mg daily, Dilaudid, potassium 20 mEq daily, sertraline 50 mg daily, valsartan 160 mg daily and Spiriva inhaler. SOCIAL HISTORY: Lives at home with his . Remote cigarettes, no alcohol. FAMILY HISTORY: Positive for renal stone disease and diabetes. REVIEW OF SYSTEMS: GENERAL: He has been feeling reasonably well except for the back pain. He does get easily short-winded. EYES: Macular degeneration with decreased vision. ENT: Hearing okay. No mouth sores or ulcers. ENDOCRINE: Positive for the diabetes. RESPIRATORY: Easily short-winded with chronic cough. CARDIAC: No chest pain or angina. He does get swelling of his legs. GASTROINTESTINAL: No nausea, vomiting, diarrhea or bloody stools. GENITOURINARY: No dysuria. NEUROLOGIC: No seizure, syncope or stroke. SKIN: No new skin rashes, lesions, or ulcers. PSYCHIATRIC: No depression or anxiety. PHYSICAL EXAMINATION: VITAL SIGNS: Cushingoid-appearing gentleman, easily winded. [address] [address] CONSULTATION Name: DONNY GARCIA Room #: [address] [place] [address] IN M.R.#: [id number] Admission: 04/05/17 Attend Phys: Lauro Mandujano MD Discharge: Date of : 41 Report #: [id number] SKIN: Otherwise, unremarkable. SKELETAL: Well developed, well nourished. HEENT: Extraocular movements are full. Vision grossly intact. No scleral icterus. Hearing intact. Mucous membranes are moist. Tongue, buccal mucosa benign. NECK: Supple. CHEST: Shows diminished breath sounds with some rhonchi. HEART: Regular. ABDOMEN: Soft. EXTREMITIES: Show no edema. LABORATORY DATA: Hemoglobin 9.8. Sodium 139, ____ 3.7, chloride 100, bicarbonate 31, ____ 3.3, BUN 29. ASSESSMENT AND PLAN: Altjv-au-sujtssx kidney disease. He has chronic kidney disease, somewhat compromised. He also has cor pulmonale with decreased renal perfusion. I do not favor renin angiotensin drugs in this type of patient as he has compromised renal perfusion at the outset and renin retention drugs will make any compensation or any decrease in renal perfusion magnified and his creatinine does tend to go up rather easily has been demonstrated here. Also obviously the nonsteroidals are very bad choice in any patient with decreased renal perfusion, particularly the patient with CKD and with cor pulmonale. I would not favor using either nonsteroidals or any renin angiotensin drugs; if he needs for hypertension, I would change to possibly a calcium philomena or alpha philomena for his hypertension. I do believe he will get better and his creatinine will come down in the low 2s, which is more or less his baseline. The creatinine of 1.4 on admission obviously signifies pretty marked volume overload on admission and certainly that has been corrected with the IV Lasix. We will certainly follow his care fairly along. Thank you for having us see this interesting case. <ELECTRONICALLY SIGNED> By: Vincent Crabtree MD 04/07/17 1045 1129 1323 Vincent Crabtree MD /nt
[~2017-04-01 10:19] MED LIST changes: +CEFDINIR300 MG PO; +OXYCODONE HCL15 MG PO
[2017-04-01 10:57] VITALS: BP 139/62
[2017-04-01 11:04] LABS: HEMATOCRIT 30.4 % (42.0-52.0); HEMOGLOBIN 10.2 gm/dL (14.0-18.0); MCH 28.9 pg (26.0-34.0); MCHC 33.4 g/dL (28.0-37.0); MCV 86.5 fL (80.0-100.0); RBC 3.52 mil/uL (4.50-6.00); RDW 14.4 % (10.5-14.5); WBC 8.8 thou/uL (4.0-11.0)
[2017-04-01 11:16] LABS: CALCIUM 9.2 mg/dL (8.5-10.1); CREATININE 1.4 mg/dL (0.7-1.3); POTASSIUM 4.2 mmol/L (3.5-5.1)
[2017-04-01 11:26] LABS: APTT 26.1 Seconds (24.5-32.8); PROTIME 10.2 Seconds (9.3-11.4)
[2017-04-01 13:20] VITALS: BP 126/53
[2017-04-01 14:15] LABS: ALBUMIN 3.2 g/dL (3.4-5.0); CALCIUM 8.8 mg/dL (8.5-10.1); CREATININE 1.4 mg/dL (0.7-1.3); POTASSIUM 4.4 mmol/L (3.5-5.1); TOTAL BILIRUBIN 0.3 mg/dL (<0.1-1.0); TOTAL PROTEIN 6.4 g/dL (6.4-8.2)
[2017-04-01 14:34] LABS: ABG SAMPLE TYPE ARTERIAL; BE(vivo) 2.7 mmol/L (-2 to +3); HCO3 29.3 mmol/L (22.0-26.0); LACTATE 1.32 mmol/L (0.5-2.0); O2(CT) 14.9 mL/dL (15.0-23.0); O2Hb 92.2 % (92.0-98.0); PCO2 54.9 mmHg (35.0-45.0); PO2 66.8 mmHg (80.0-100.0); pH 7.345 (7.360-7.450); sO2 91.9 % (92.0-98.0)
[2017-04-01 14:35] LABS: STICK SITE L.RADIAL
[2017-04-01 14:41] LABS: HEMOGLOBIN 9.8 gm/dL (14.0-18.0); MCH 29.3 pg (26.0-34.0); MCHC 33.8 g/dL (28.0-37.0); MCV 86.7 fL (80.0-100.0); RBC 3.34 mil/uL (4.50-6.00); RDW 14.5 % (10.5-14.5); WBC 8.4 thou/uL (4.0-11.0)
[2017-04-01 19:45] VITALS: BP 130/47
[2017-04-02 04:45] VITALS: BP 147/85
[2017-04-02 08:25] VITALS: BP 119/56
[2017-04-02 10:38] VITALS: BP 119/56
[2017-04-02 11:34] LABS: ABG SAMPLE TYPE ARTERIAL; BE(vivo) 2.8 mmol/L (-2 to +3); HCO3 29.5 mmol/L (22.0-26.0); LACTATE 1.32 mmol/L (0.5-2.0); O2(CT) 14.9 mL/dL (15.0-23.0); O2Hb 93.2 % (92.0-98.0); PCO2 55.8 mmHg (35.0-45.0); PO2 73.7 mmHg (80.0-100.0); STICK SITE R.RADIAL; pH 7.341 (7.360-7.450); sO2 93.7 % (92.0-98.0); tCO2 31.2 mmol/L (24.0-30.0)
[2017-04-02 16:05] VITALS: BP 90/40
[2017-04-02 19:38] VITALS: BP 114/50
[2017-04-03 04:08] VITALS: BP 124/84
[2017-04-03 07:46] VITALS: BP 109/50
[2017-04-03 15:25] VITALS: BP 102/46
[2017-04-03 20:00] VITALS: BP 120/53
[2017-04-04 03:25] VITALS: BP 99/47
[2017-04-04 08:05] VITALS: BP 106/49
[2017-04-04] MEDS ORDERED: DILAUDID 2 MG TA2 MG PO (09:06)
[2017-04-04 15:36] LABS: CALCIUM 8.7 mg/dL (8.5-10.1); CREATININE 3.1 mg/dL (0.7-1.3); POTASSIUM 3.7 mmol/L (3.5-5.1)
[2017-04-04 16:15] VITALS: BP 96/43
[2017-04-04 19:35] VITALS: BP 107/45
[2017-04-04 20:31] VITALS: BP 91/41
[2017-04-05 04:18] VITALS: BP 136/90
[2017-04-05 05:49] LABS: CALCIUM 7.8 mg/dL (8.5-10.1); CREATININE 3.3 mg/dL (0.7-1.3); POTASSIUM 3.7 mmol/L (3.5-5.1)
[2017-04-05 07:22] VITALS: BP 136/90
[2017-04-05 09:16] VITALS: BP 123/47
[2017-04-05 17:53] VITALS: BP 118/61
[2017-04-05 19:44] VITALS: BP 114/60
[2017-04-06 04:18] VITALS: BP 130/65
[2017-04-06 06:53] LABS: ALBUMIN 2.8 g/dL (3.4-5.0); CALCIUM 7.9 mg/dL (8.5-10.1); PHOSPHORUS 4.1 mg/dL (2.5-4.9); POTASSIUM 4.1 mmol/L (3.5-5.1)
[2017-04-06 06:54] LABS: CREATININE 2.3 mg/dL (0.7-1.3)
[2017-04-06 08:00] VITALS: BP 128/59
[2017-04-06 16:41] VITALS: BP 139/64
[2017-04-06 19:43] VITALS: BP 115/58
[2017-04-07 04:14] VITALS: BP 149/76
[2017-04-07 06:28] LABS: ALBUMIN 2.9 g/dL (3.4-5.0); CALCIUM 8.2 mg/dL (8.5-10.1); PHOSPHORUS 3.2 mg/dL (2.5-4.9); POTASSIUM 3.4 mmol/L (3.5-5.1)
[2017-04-07 07:05] VITALS: BP 122/66
[2017-04-07 11:40] VITALS: BP 122/66
[2017-04-07 16:00] VITALS: BP 143/71
[2017-04-07 20:53] VITALS: BP 110/49
[2017-04-08 04:20] VITALS: BP 118/52
[2017-04-08 06:04] LABS: ALBUMIN 2.9 g/dL (3.4-5.0); CALCIUM 8.7 mg/dL (8.5-10.1); CREATININE 1.6 mg/dL (0.7-1.3); PHOSPHORUS 2.5 mg/dL (2.5-4.9); POTASSIUM 4.2 mmol/L (3.5-5.1)
[2017-04-08 08:00] VITALS: BP 126/67
[2017-04-08] MEDS ORDERED: SERTRALINE HCL50 MG PO (12:45)
[2017-04-08] MEDS ORDERED: OXYCONTIN20 M1 PO (12:45)
== END 2017-04-08 15:19 | DRG 515 ==
LOC: SPEC 10:19 → 4S 12:56 → SPEC 13:03 → 4S 13:04
PROVIDERS: Family Medicine; Internal Medicine Nephrology; Internal Medicine Pulmonary Disease; Radiology Diagnostic Radiology
DX: M48.54XA Collapsed vertebra, not elsewhere classified, thoracic region, initial encounter for fracture (principal); J96.21 Acute and chronic respiratory failure with hypoxia; J96.22 Acute and chronic respiratory failure with hypercapnia; I50.43 Acute on chronic combined systolic (congestive) and diastolic (congestive) heart failure; J98.11 Atelectasis; N17.9 Acute kidney failure, unspecified; I13.0 Hypertensive heart and chronic kidney disease with heart failure and stage 1 through stage 4 chronic kidney disease, or unspecified chronic kidney disease; J44.9 Chronic obstructive pulmonary disease, unspecified; D64.9 Anemia, unspecified; E78.5 Hyperlipidemia, unspecified; F32.9 Major depressive disorder, single episode, unspecified; M81.0 Age-related osteoporosis without current pathological fracture; M19.90 Unspecified osteoarthritis, unspecified site; H54.8 Legal blindness, as defined in USA; Z96.659 Presence of unspecified artificial knee joint; G89.29 Other chronic pain; E86.0 Dehydration; M10.9 Gout, unspecified; N18.9 Chronic kidney disease, unspecified; E11.22 Type 2 diabetes mellitus with diabetic chronic kidney disease; I27.81 Cor pulmonale (chronic); K21.9 Gastro-esophageal reflux disease without esophagitis; E87.6 Hypokalemia; Z88.6 Allergy status to analgesic agent; Z88.1 Allergy status to other antibiotic agents; Z88.8 Allergy status to other drugs, medicaments and biological substances; Z87.891 Personal history of nicotine dependence; Z93.3 Colostomy status; Z98.52 Vasectomy status; Z87.01 Personal history of pneumonia (recurrent); Z79.899 Other long term (current) drug therapy; Z85.828 Personal history of other malignant neoplasm of skin; Z87.442 Personal history of urinary calculi; Z97.4 Presence of external hearing-aid; Z91.81 History of falling; Z83.3 Family history of diabetes mellitus; Z84.1 Family history of disorders of kidney and ureter
CPT/HCPCS: 10102; 62110; 70005

== ENCOUNTER 2017-04-14 04:27 | Inpatient (IN) | payer OTHER ==
[~2017-04-14] VITALS: Ht 162.6 cm; Wt 91.8 kg
[2017-04-14] VITALS (7 sets, daily range): BP systolic 99–145; BP diastolic 47–94
--- NOTE | ~2017-04-14 | CNG ---
[facility] [place] [address] CYTO-NONGYN REPORT PROCEDURE Name: DONNY PABLO Room #: 202-P DIS IN M.R.#: [id number] Admission: 04/14/17 Date of : 41 Discharge: 04/20/17 Report #: [id number] Path Case #: [id number] CYTOPATHOLOGY REPORT COLLECTION DATE: 04/19/2017 RECEIVED DATE: 04/20/2017 SUBMITTING PHYS: Dr. [place] OTHER PHYS: Dr. Lauro Mandujano CLINICAL HISTORY: Respiratory failure; hypercapnia; pneumonia; SOB SPECIMEN(S) RECEIVED: A.Sputum Cytology * * * * * * * * * * * * FINAL DIAGNOSIS: A. Sputum: - No malignant cells identified. - Bronchial epithelial cells, alveolar macrophages, rare squamous cells present along with inflammatory cells. PATHOLOGIST: Erica Colin M.D. REPORT ELECTRONICALLY SIGNED BY: Erica Colin M.D. DATE/TIME: 04/21/2017 15:42 * * * * * * * * * * * * GROSS PATHOLOGY: A. Sputum Cytology: The specimen is submitted unfixed, labeled "Mi Pabloyvette Medina". Received by the Cytology Department is two mL of cloudy colorless fluid. One ThinPrep slide was prepared. (lg10.) HOLTER SCANNING TECHNICIAN(S): JUAN CARLOS Hyatt([facility]) INITIAL CPT CODE(S): A; 01793 Professional services performed by [facility] at [facility] [address], [place] [address] Technical services performed by [facility] at [address] [place] [address]., [address], [place] [address]. [facility] [address] [place] [address], [facility] [address] [place], [place] [address] [place] [address] [place] [address] CYTO-NONGYN REPORT PROCEDURE Name: DONNY PABLO Room #: 202-P [facility] IN .R.#: [id number] Admission: 04/14/17 Date of : 41 Discharge: 04/20/17 Report #: [id number] Path Case #: [id number] PHONE: [phone] DIRECTOR: Reji Reyes M.D. * * * END OF REPORT * * *
--- NOTE | ~2017-04-14 | EKG ---
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: CONSUELO : 1945 Requested By: Helnee Bourne Order Number: [id number] MD: Franklin Morrison Measurements Intervals [place] Rate: 119 P: -56 MI: 108 QRS: -105 QRSD: 141 T: 41 QT: 456 QTc: 642 Interpretive Statements Sinus tachycardia Nonspecific intraventricular conduction delay Compared to ECG 04/01/2017 13:50:55 No significant change was found Electronically Signed On 04-14-2017 7:47:36 CDT by Franklin Morrison [email or web address] <ELECTRONICALLY SIGNED> By: Franklin Morrison MD, [facility] 04/14/17 0747 0440 9 Franklin Morrison MD, [facility] /EPI
[~2017-04-14 04:27] MED LIST changes: +DILAUDID 2 MG TA2 MG PO
[2017-04-14 04:40] LABS: ABG SAMPLE TYPE ARTERIAL; BE(vivo) 7.8 mmol/L (-2 to +3); HCO3 35.6 mmol/L (22.0-26.0); LACTATE 1.01 mmol/L (0.5-2.0); O2(CT) 14.6 mL/dL (15.0-23.0); O2Hb 92.8 % (92.0-98.0); PO2 75.6 mmHg (80.0-100.0); pH 7.337 (7.360-7.450); sO2 93.8 % (92.0-98.0); tCO2 37.6 mmol/L (24.0-30.0)
[2017-04-14 04:41] LABS: PCO2 67.9 mmHg (35.0-45.0); STICK SITE L.RADIAL
[2017-04-14 04:54] LABS: MCHC 32.2 g/dL (28.0-37.0); PLATELET COUNT 333 thou/uL (150-400); RBC 3.56 mil/uL (4.50-6.00); RDW 14.3 % (10.5-14.5); WBC 11.6 thou/uL (4.0-11.0)
[2017-04-14 04:56] LABS: MANUAL DIFF YES
[2017-04-14 05:01] LABS: ANION GAP 2 mmol/L (7-16); BUN 17 mg/dL (7-18); CALCIUM 9.1 mg/dL (8.5-10.1); CHLORIDE 100 mmol/L (98-107); CO2 37 mmol/L (21-32); CREATININE 1.9 mg/dL (0.7-1.3); GLUCOSE 128 mg/dL (74-106); POTASSIUM 4.4 mmol/L (3.5-5.1); SODIUM 139 mmol/L (136-145)
[2017-04-14] MEDS ORDERED: DILAUDID 2 MG TA2 MG PO (05:11)
[2017-04-14] MEDS ORDERED: LIPITOR 20 MG T20 M1 PO (05:12)
[2017-04-14] MEDS ORDERED: LASIX 40 MG TAB40 M2 PO (05:12)
[2017-04-14 05:13] LABS: TROPONIN-I < 0.04 ng/mL (<0.04-0.07)
[2017-04-14] MEDS ORDERED: OXYCONTIN20 M1 PO (05:13)
[2017-04-14] MEDS ORDERED: SPIRIVA INH (05:13)
[2017-04-14] MEDS ORDERED: POTASSIUM20 PO (05:13)
[2017-04-14] MEDS ORDERED: DIOVAN 80 MG TA80 M1 PO (05:14)
[2017-04-14] MEDS ORDERED: VENTOLIN HFA 1818 GM INH (05:14)
[2017-04-14] MEDS ORDERED: VALIUM5 MG PO (05:14)
[2017-04-14] MEDS ORDERED: SERTRALINE HCL50 MG PO (05:14)
[2017-04-14] MEDS ORDERED: MIRALAX17 GM PO (05:15)
[2017-04-14] MEDS ORDERED: DUONEB 2.5-0.5 M3 ML INH (05:15)
[2017-04-14] MEDS ORDERED: LEVAQUIN 500 M500 M2 PO (05:15)
[2017-04-14 05:32] LABS: ABSOLUTE NEUTROPHILS 5.6 thou/uL (1.4-8.2); METAMYELOCYTES 1 %; TOTAL CELL COUNT 100
[2017-04-15 04:29] VITALS: BP 104/57
[2017-04-15 07:15] VITALS: BP 127/62
[2017-04-15 11:05] VITALS: BP 108/68
[2017-04-15 15:25] VITALS: BP 97/63
[2017-04-15 20:00] VITALS: BP 116/52
[2017-04-16 04:00] VITALS: BP 126/71
[2017-04-16 04:28] LABS: HEMATOCRIT 29.6 % (42.0-52.0); HEMOGLOBIN 9.6 gm/dL (14.0-18.0); MCH 27.7 pg (26.0-34.0); MCHC 32.5 g/dL (28.0-37.0); MCV 85.1 fL (80.0-100.0); RBC 3.47 mil/uL (4.50-6.00); RDW 14.6 % (10.5-14.5); WBC 11.7 thou/uL (4.0-11.0)
[2017-04-16 04:49] LABS: CREATININE 2.1 mg/dL (0.7-1.3); MAGNESIUM 1.7 mg/dL (1.8-2.4)
[2017-04-16 08:31] VITALS: BP 111/56
[2017-04-16 11:53] VITALS: BP 100/54
[2017-04-16 16:29] VITALS: BP 122/59
[2017-04-16 19:22] VITALS: BP 114/55
[2017-04-17 04:50] VITALS: BP 147/74
[2017-04-17 05:39] LABS: ABG SAMPLE TYPE ARTERIAL; BE(vivo) 10.2 mmol/L (-2 to +3); HCO3 35.3 mmol/L (22.0-26.0); LACTATE 1.91 mmol/L (0.5-2.0); O2(CT) 15.1 mL/dL (15.0-23.0); O2Hb 96.7 % (92.0-98.0); PO2 100.4 mmHg (80.0-100.0); pH 7.467 (7.360-7.450); sO2 97.8 % (92.0-98.0); tCO2 36.9 mmol/L (24.0-30.0)
[2017-04-17 05:40] LABS: FIO2 40 %; Pressure Support 6 cm H20; STICK SITE L.RADIAL
[2017-04-17 07:50] VITALS: BP 124/60
[2017-04-17 10:10] VITALS: BP 129/69
[2017-04-17 12:30] VITALS: BP 104/63
[2017-04-17 16:45] VITALS: BP 110/55
[2017-04-17 19:35] VITALS: BP 101/59
[2017-04-18 04:00] VITALS: BP 120/64
[2017-04-18 07:45] VITALS: BP 120/73
[2017-04-18 11:20] VITALS: BP 103/58
[2017-04-18 16:45] VITALS: BP 120/53
[2017-04-18 19:57] VITALS: BP 99/59
[2017-04-19 04:28] VITALS: BP 121/63
[2017-04-19 07:44] VITALS: BP 148/78
[2017-04-19 11:40] LABS: HEMOGLOBIN 9.9 gm/dL (14.0-18.0); MCH 28.2 pg (26.0-34.0); MCHC 32.8 g/dL (28.0-37.0); MCV 85.9 fL (80.0-100.0); RBC 3.49 mil/uL (4.50-6.00); RDW 15.3 % (10.5-14.5); WBC 14.5 thou/uL (4.0-11.0)
[2017-04-19 11:44] LABS: CALCIUM 8.7 mg/dL (8.5-10.1); CREATININE 2.2 mg/dL (0.7-1.3); MAGNESIUM 2.3 mg/dL (1.8-2.4); POTASSIUM 3.6 mmol/L (3.5-5.1)
[2017-04-19 12:03] LABS: ABG SAMPLE TYPE ARTERIAL; HCO3 29.9 mmol/L (22.0-26.0); LACTATE 2.15 mmol/L (0.5-2.0); O2(CT) 14.8 mL/dL (15.0-23.0); O2Hb 96.4 % (92.0-98.0); PCO2 40.7 mmHg (35.0-45.0); STICK SITE R.RADIAL; pH 7.484 (7.360-7.450); sO2 97.5 % (92.0-98.0); tCO2 31.2 mmol/L (24.0-30.0)
[2017-04-19 12:11] VITALS: BP 110/56
[2017-04-19 16:17] VITALS: BP 113/59
[2017-04-19 19:45] VITALS: BP 91/52
[2017-04-20] VITALS (7 sets, daily range): BP systolic 98–1052; BP diastolic 57–67
[2017-04-20] MEDS ORDERED: PREDNISONE 20 M20 M1 PO (08:05)
== END 2017-04-20 17:20 | disposition home health service (06) | DRG 871 ==
LOC: ER 04:27 → EROBS 04:57 → 2N 04:57 → ENTRNSPT 04-20 16:54 → 2N 04-20 17:20
PROVIDERS: Emergency Medicine; Internal Medicine Pulmonary Disease
PROC: 5A09557 Assistance with Respiratory Ventilation, Greater than 96 Consecutive Hours, Continuous Positive Airway Pressure (ICD-10-PCS; principal; 2017-04-14)
DX: A41.9 Sepsis, unspecified organism (principal); J96.21 Acute and chronic respiratory failure with hypoxia; J96.22 Acute and chronic respiratory failure with hypercapnia; J18.9 Pneumonia, unspecified organism; J44.1 Chronic obstructive pulmonary disease with (acute) exacerbation; J44.0 Chronic obstructive pulmonary disease with (acute) lower respiratory infection; E11.9 Type 2 diabetes mellitus without complications; I10 Essential (primary) hypertension; E78.5 Hyperlipidemia, unspecified; M81.0 Age-related osteoporosis without current pathological fracture; M19.90 Unspecified osteoarthritis, unspecified site; F32.9 Major depressive disorder, single episode, unspecified; H91.90 Unspecified hearing loss, unspecified ear; H54.8 Legal blindness, as defined in USA; G89.29 Other chronic pain; M54.9 Dorsalgia, unspecified; G47.33 Obstructive sleep apnea (adult) (pediatric); E66.9 Obesity, unspecified; K21.9 Gastro-esophageal reflux disease without esophagitis; Z96.659 Presence of unspecified artificial knee joint; Z68.34 Body mass index [BMI] 34.0-34.9, adult; Z85.828 Personal history of other malignant neoplasm of skin; Z93.3 Colostomy status; Z87.442 Personal history of urinary calculi; Z90.49 Acquired absence of other specified parts of digestive tract; Z87.311 Personal history of (healed) other pathological fracture; Z88.6 Allergy status to analgesic agent; Z88.1 Allergy status to other antibiotic agents; Z88.8 Allergy status to other drugs, medicaments and biological substances; Z98.52 Vasectomy status
CPT/HCPCS: 10081

== ENCOUNTER → 2017-06-04 | Outpatient (CLI) | payer OTHER ==
[~2017-06-04] VITALS: Ht 162.6 cm; Wt 86.6 kg
[~2017-06-04] MED LIST changes: +DUONEB 2.5-0.5 M3 ML INH; +ENDOCET 5-3251 EACH PO; +PERCOCET 5-3251 EACH PO; +PREDNISONE 20 M20 M1 PO
--- NOTE | ~2017-06-04 | HPC ---
[facility] [address] [place] [address] PAIN MANAGEMENT CONSULTATION Name: DONNY GARCIA Room #: REG NICK Lindsay#: [id number] Admission: 06/04/17 Attend Phys: Jackson Culver DO Discharge: Date of : 43 Report #: [id number] THIS REPORT FOR: //name// CC: Luaro Culver HISTORY OF PRESENT ILLNESS: The patient is a very pleasant 72-year-old gentleman being treated by Dr. Spenser Leyva for lumbar spondylosis, osteoarthritis affecting wrist and knees, requiring high risk complex medication management. The patient has been remarkably stable on actually relatively low dose narcotic, OxyContin 10 mg b.i.d. with Percocet 5/325 b.i.d. This is equivalent to about 45 mg of morphine daily. He states medications provide sufficient analgesia to participate in activities of daily living. He tells me he has lost about 30 pounds since February, unfortunately this started when he was quite ill in the hospital with pneumonia. However, he has continued to use some dietary discretion and increase activity as able. He feels he is doing better with the lower weight. Rates his pain is 2-3 on a VAS. He does note that they get short of breath with activity, he has significant pulmonary disease and he does use supplemental oxygen at 2 liters per minute. PHYSICAL EXAMINATION: GENERAL: Otherwise shows a 72-year-old gentleman. VITAL SIGNS: BMI 32.8 kilograms per meter squared. Vital signs stable, oxygen saturation 97% on 2 liters per minute nasal cannula. MUSCULOSKELETAL: Diffuse tenderness in the neck, shoulder and arms. Pain in the knees with ambulation. He states he is a little more active yesterday. He was out to see several doctors and they went to [place] where he is looking for a rescue dog. They are looking to adopt another dog. They have about a 6-year-old small dog at home. With increasing activity, he states his pain was a little worse today but again stable on baseline medication. We reviewed the fact that opiate medications are being used to provide analgesia adequate to support activities of daily living, not attempting to achieve a specific pain score on the 0-10 Visual Analog Scale. The current opiate medications are providing sufficient analgesia to allow the patient to participate in activities of daily living. The patient is not exhibiting any aberrant behavior suggestive of drug diversion. The patient is not having any adverse reactions to medications. The patient is not suffering from daytime somnolence or mental acuity changes. The patient is managing opiate-induced constipation with appropriate lgaf-nmj-dqwxjlm agents and dietary considerations. The patient was counseled on concern for caution with operating a motor vehicle while using opiate medications. A physical exam was performed and the patient's functional status was evaluated. All patients with back pain were advised against the bed rest greater than [address] [address] PAIN MANAGEMENT CONSULTATION Name: DONNY GARCIA SUDHEER Room #: REG [facility] Lindsay#: [id number] Admission: 06/04/17 Attend Phys: Jackson Culver DO Discharge: Date of : 43 Report #: [id number] days and were advised to return to normal activities. Pain score assessment was noted and the treatment plan was reviewed with the patient. All current medications, both prescribed and OTC were reviewed and reconciled on the electronic medical record. Tobacco screening was accomplished and smoking cessation was advised when indicated. BMI was noted and diet/exercise modification was recommended for all patients following outside normal parameters. I reviewed with the patient today their responsibilities to safeguard prescription medications, reviewed their responsibility to utilize medications only as prescribed by the physician. They are to seek and receive pain medications only from 1 physician group ( [facility]). They are to use 1 pharmacy and keep the clinic informed if they change pharmacies. Their responsibilities include making followup visits in a timely fashion and to avoid abrupt discontinuation of medication usage. Their responsibilities further include bringing their medications (bottles from the pharmacy with residual pills) to the visit for possible confirmation of pill counts and the patient understands it is their responsibility to submit to random drug screens to ensure both that the medications prescribed are present, and that no other controlled substances are present. All prescriptions provided today were generated electronically. ASSESSMENT: Lumbar spondylosis and osteoarthritis affecting wrist and knees, requiring complex medication management. RECOMMENDATION: Continue OxyContin 10 mg b.i.d. and Percocet 5/325, b.i.d. I have taken the liberty of writing for 3 months of current medication. Follow up at that time with Dr. Leyva. <ELECTRONICALLY SIGNED> By: Jackson Culver DO 06/09/17 0808 1528 0306 Jackson Culver DO /nt
[2017-06-04 14:21] VITALS: BP 115/60
== END ==
LOC: PAIN 07:04
DX: M54.16 Radiculopathy, lumbar region (principal); M17.0 Bilateral primary osteoarthritis of knee; M19.032 Primary osteoarthritis, left wrist; M19.031 Primary osteoarthritis, right wrist

== ENCOUNTER 2017-07-05 11:04 | Inpatient (IN) | payer OTHER ==
[~2017-07-05] VITALS: Ht 162.6 cm; Wt 87.1 kg
--- NOTE | ~2017-07-05 | EKG ---
[address] [address] ELECTROCARDIOGRAM REPORT Name: DONNY GARCIA SUDHEER Room #: 406-P ADM IN M.R.#: [id number] Admission: 07/05/17 Attend Phys: Lauro Mandujano MD Discharge: Date of : 43 Report #: [id number] THIS REPORT FOR: //name// [facility] ED Test Date: 2017-07-05 Test Time: 11:30:57 Pat Name: DONNY GARCIA Department: Room: 406 P Gender: M French Weaver: ALYSA : 1945 Requested By: Leo Gutierrez Order Number: [id number] MD: Franklin Morrison Measurements Intervals [place] Rate: 104 P: 57 ND: 174 QRS: -76 QRSD: 142 T: 46 QT: 374 QTc: 492 Interpretive Statements Sinus tachycardia RBBB and LAFB Compared to ECG 04/14/2017 04:40:49 Left anterior fascicular block now present Electronically Signed On 07-06-2017 8:45:33 HONING MACHINE TRY OUT SETTER by Franklin Morrison [email or web address] <ELECTRONICALLY SIGNED> By: Franklin Morrison MD, [facility] 07/06/17 0845 1130 29 Franklin Morrison MD, [facility] /EPI
[2017-07-05 11:06] VITALS: BP 131/67
[2017-07-05 11:31] LABS: HEMATOCRIT 35.3 % (42.0-52.0); HEMOGLOBIN 11.4 gm/dL (14.0-18.0); MCH 27.7 pg (26.0-34.0); MCHC 32.4 g/dL (28.0-37.0); MCV 85.7 fL (80.0-100.0); RBC 4.12 mil/uL (4.50-6.00); RDW 16.6 % (10.5-14.5); WBC 14.6 thou/uL (4.0-11.0)
[2017-07-05 11:42] LABS: ANION GAP 18 mmol/L (7-16); BUN 30 mg/dL (7-18); CALCIUM 8.9 mg/dL (8.5-10.1); CHLORIDE 102 mmol/L (98-107); CO2 25 mmol/L (21-32); CREATININE 2.1 mg/dL (0.7-1.3); GLUCOSE 94 mg/dL (74-106); POTASSIUM 3.9 mmol/L (3.5-5.1); SODIUM 145 mmol/L (136-145)
[2017-07-05 11:46] LABS: BE(vivo) 1.5 mmol/L (-2 to +3); HCO3 25.8 mmol/L (22.0-26.0); PCO2 39.3 mmHg (35.0-45.0); PO2 103.4 mmHg (80.0-100.0); pH 7.435 (7.360-7.450); sO2 97.9 % (92.0-98.0)
[2017-07-05 11:51] LABS: TROPONIN-I < 0.04 ng/mL (<0.06)
[2017-07-05 15:00] VITALS: BP 129/61
[2017-07-05] MEDS ORDERED: SPIRIVA INH (18:22)
[2017-07-05 19:33] VITALS: BP 103/52
[2017-07-05 23:28] VITALS: BP 114/51
[2017-07-06 03:39] VITALS: BP 106/63
[2017-07-06] MEDS ORDERED: LEVAQUIN 500 M500 M2 PO (07:28)
[2017-07-06 07:50] VITALS: BP 130/61
[2017-07-06 13:17] LABS: HEMATOCRIT 31.9 % (42.0-52.0); HEMOGLOBIN 10.7 gm/dL (14.0-18.0); MCH 28.2 pg (26.0-34.0); MCHC 33.5 g/dL (28.0-37.0); MCV 84.3 fL (80.0-100.0); RBC 3.79 mil/uL (4.50-6.00); RDW 16.4 % (10.5-14.5)
[2017-07-06 13:42] LABS: ALBUMIN 3.7 g/dL (3.4-5.0); CALCIUM 8.7 mg/dL (8.5-10.1); CREATININE 1.9 mg/dL (0.7-1.3); POTASSIUM 4.1 mmol/L (3.5-5.1); TOTAL BILIRUBIN 0.3 mg/dL (<0.1-1.0); TOTAL PROTEIN 6.7 g/dL (6.4-8.2)
[2017-07-06 13:48] LABS: BE(vivo) 0.2 mmol/L (-2 to +3); HCO3 23.7 mmol/L (22.0-26.0); PCO2 34.6 mmHg (35.0-45.0); PO2 91.4 mmHg (80.0-100.0); pH 7.454 (7.360-7.450); sO2 97.4 % (92.0-98.0)
[2017-07-06 16:00] VITALS: BP 129/63
[2017-07-06 20:00] VITALS: BP 118/70
[2017-07-07 04:00] VITALS: BP 111/62
[2017-07-07 09:31] VITALS: BP 127/55
[2017-07-07 17:25] VITALS: BP 128/63
[2017-07-07 20:00] VITALS: BP 115/67
[2017-07-08 09:38] VITALS: BP 120/61
[2017-07-08 10:50] VITALS: BP 120/61
[2017-08-18] MEDS ORDERED: SPIRIVA18 MCG INH (13:14)
[2017-08-18] MEDS ORDERED: ADVAIR HFA 230M12 GM INH (13:17)
[2017-08-18] MEDS ORDERED: OXYCONTIN10 M1 PO (13:51)
[2017-08-18] MEDS ORDERED: OXYCODONE-ACET1 EACH PO (13:51)
[2017-08-18] MEDS ORDERED: VOLTAREN GEL 1100 G1 TOP (13:51)
[2017-08-18] MEDS ORDERED: PERCOCET PO (13:51)
[2017-12-16] MEDS ORDERED: AZITHROMYCIN 2250 MG PO (10:45)
[2017-12-16] MEDS ORDERED: STIOLTO (10:45)
[2017-12-16] MEDS ORDERED: STIOLTO RESPIMAT4 GM IH (10:46)
[2017-12-16] MEDS ORDERED: NAPROSYN500 MG PO (10:46)
[2017-12-16] MEDS ORDERED: PREDNISONE 20 M20 M1 PO (10:48)
[2017-12-16] MEDS ORDERED: PERFOROMIS20 MCG/2 M IH (10:49)
[2017-12-16] MEDS ORDERED: BENEFIBER152 GM PO (10:51)
[2017-12-16] MEDS ORDERED: VIAGRA100 MG PO (10:51)
[2017-12-16] MEDS ORDERED: ALLOPURINOL 10100 M1 PO (10:53)
[2017-12-16] MEDS ORDERED: OXYCODONE-ACET1 EACH PO (11:20)
[2017-12-16] MEDS ORDERED: OXYCONTIN10 M1 PO (11:20)
[2017-12-16] MEDS ORDERED: PERCOCET PO (11:20)
[2018-03-14] MEDS ORDERED: OXYCODONE-ACET1 EAC2 PO ×2 (13:46)
[2018-03-14] MEDS ORDERED: OXYCODONE-ACET1 EACH PO (13:46)
[2018-03-14] MEDS ORDERED: OXYCODONE HCL E10 MG PO (13:46)
[2018-04-14] MEDS ORDERED: OXYCODONE-ACET1 EACH PO (08:38)
[2018-04-14] MEDS ORDERED: PERCOCET PO (08:38)
== END 2017-07-08 12:45 | disposition home or self-care (01) | DRG 871 ==
LOC: ER 11:04 → 4N 14:45 → ENTRNSPT 07-08 12:41 → EDTRNSPTSTS 07-08 12:45 → 4N 07-08 12:45
PROVIDERS: Emergency Medicine; Family Medicine
DX: A41.9 Sepsis, unspecified organism (principal); I50.31 Acute diastolic (congestive) heart failure; J44.1 Chronic obstructive pulmonary disease with (acute) exacerbation; E11.9 Type 2 diabetes mellitus without complications; I10 Essential (primary) hypertension; E78.5 Hyperlipidemia, unspecified; M81.0 Age-related osteoporosis without current pathological fracture; M19.90 Unspecified osteoarthritis, unspecified site; H54.8 Legal blindness, as defined in USA; F32.9 Major depressive disorder, single episode, unspecified; G89.29 Other chronic pain; M54.9 Dorsalgia, unspecified; Z96.659 Presence of unspecified artificial knee joint; Z98.52 Vasectomy status; Z93.3 Colostomy status; Z88.6 Allergy status to analgesic agent; Z88.1 Allergy status to other antibiotic agents; Z88.8 Allergy status to other drugs, medicaments and biological substances
CPT/HCPCS: 10790

== ENCOUNTER → 2017-07-15 | Outpatient (CLI) | payer OTHER ==
[~2017-07-15] MED LIST changes: +ACCUNEB SO1.25 MG/1; +ADVAIR HFA 230M12 GM INH; +ALLOPURINOL 10100 M1 PO; +AZITHROMYCIN 2250 MG PO; +BENEFIBER152 GM PO; +DIOVAN40 MG PO; +DURAGESIC1 EACH TOP; +NAPROSYN500 MG PO; +OXYCODONE HCL30 MG PO; +PERFOROMIS20 MCG/2 M IH; +PROTONIX40 M1 PO; +SPIRIVA18 MCG INH; +STIOLTO; +STIOLTO RESPIMAT4 GM IH; +VIAGRA100 MG PO
== END ==
LOC: RAD 11:45
DX: J18.9 Pneumonia, unspecified organism (principal); J98.11 Atelectasis

== ENCOUNTER → 2017-08-18 | Outpatient (CLI) | payer OTHER ==
[~2017-08-18] VITALS: Ht 162.6 cm; Wt 88.5 kg
--- NOTE | ~2017-08-18 | HPC ---
[facility] [address] [address] [place] [address] PAIN MANAGEMENT CONSULTATION Name: DONNY GARCIA Room #: REG NICK CalvoJocy#: [id number] Admission: 08/18/17 Attend Phys: Spenser Leyva MD Discharge: Date of : 43 Report #: [id number] THIS REPORT FOR: //name// CC: Lauro Leyva DATE OF SERVICE: 08/18/2017 Followup visit for management of chronic low back pain. The patient returns to pain clinic today in followup for medication management. He last saw my partner, Dr. Culver in May. He is here today for renewal of his opioid medication. He cautiously uses OxyContin 10 mg b.i.d. and oxycodone 5/325 twice a day for breakthrough pain in combination with Voltaren gel. The use of these medications have been helpful and he scores his pain with medication as 0/10. Most of his pain is in the right mid back and right shoulder. He also complains of arthropathy pain in his wrists and knees. He has no significant side effects. He has been on time for all medications. There have been no signs of misuse or abuse. Comorbidities include severe COPD, he is on oxygen around the clock. He has had some skin cancers removed and suffers from hypertension, hyperlipidemia and noninsulin dependent diabetes. He had kyphoplasty performed in 2016 for an osteoporotic compression fracture. He is legally blind. PQRS review: He does have osteoarthritis, which he described as "all over." Multiple joints ache and hurt, he has spondylosis of the spine. He is in a wheelchair. His BMI is 33.5. He is a fall risk, so needs assistance in transfers. He has not fallen in the last 3 months. VITAL SIGNS: Blood pressure 112/52, heart rate is 109. He has been treated for hypertension. He is not on a blood thinner. He is on an opioid agreement, which was last signed in 01/2016. He has a moderate risk for misuse of medication on his opioid risk tool, but this has not been the case during our treatments. IMPRESSION: 1. Chronic low back pain with radiculopathy. 2. Obesity. 3. Blindness. 4. Chronic obstructive pulmonary disease, on oxygen. 5. Management of high risk medications under terms of an opioid agreement. PLAN: I will continue with medications, which we are providing for palliation [address] [place] [address] PAIN MANAGEMENT CONSULTATION Name: DONNY GARCIA Room #: REG NICK ThompsonJocyShellyJocy#: [id number] Admission: 08/18/17 Attend Phys: Spenser Leyva MD Discharge: Date of : 43 Report #: [id number] of this unfortunate degenerative condition. He has used his medications gratefully and with good effect. He understands the importance of safeguarding medications. We will see him back in the pain clinic in 3 months. <ELECTRONICALLY SIGNED> By: Spenser Leyva MD 09/27/17 1408 1710 2228 Spenser Leyva MD /lucho
[2017-08-18 13:15] VITALS: BP 112/52
== END ==
LOC: PAIN 06:25
DX: M54.16 Radiculopathy, lumbar region (principal); E66.9 Obesity, unspecified; J44.9 Chronic obstructive pulmonary disease, unspecified; F11.90 Opioid use, unspecified, uncomplicated; H54.7 Unspecified visual loss; Z68.33 Body mass index [BMI] 33.0-33.9, adult

== ENCOUNTER → 2017-08-25 | Outpatient (CLI) | payer OTHER | LOC: RAD 15:41 | DX: J44.9 Chronic obstructive pulmonary disease, unspecified (principal) ==

== ENCOUNTER 2017-10-30 13:38 | Emergency (ER) | payer OTHER ==
[~2017-10-30] VITALS: Ht 162.6 cm; Wt 95.3 kg
--- NOTE | ~2017-10-30 | EKG ---
[place] [address] [facility] [place] [address] ELECTROCARDIOGRAM REPORT Name: DONNY GARCIA Room #: DEP Lindsay#: [id number] Admission: 10/30/17 Attend Phys: Discharge: 10/30/17 Date of : 43 Report #: [id number] THIS REPORT FOR: //name// [facility] ED Test Date: 2017-10-30 Test Time: 13:55:07 Pat Name: DONNY GARCIA Department: Room: Gender: M Archives Specialist: Domenic BRAVO : 1945 Requested By: Jose Antonio Payne Order Number: [id number] MD: Franklin Morrison Measurements Intervals [place] Rate: 104 P: 40 UT: 178 QRS: -95 QRSD: 145 T: 32 QT: 375 QTc: 494 Interpretive Statements Sinus tachycardia RBBB and LAFB Compared to ECG 07/05/2017 11:30:57 No significant changes Electronically Signed On 11-01-2017 7:53:52 CDT by Franklin Morrison [email or web address] <ELECTRONICALLY SIGNED> By: Franklin Morrison MD, [facility] 11/01/17 0753 1355 1355 Franklin Morrison MD, [facility] /EPI
[~2017-10-30 13:38] MED LIST changes: -ACCUNEB SO1.25 MG/1; -ALLOPURINOL 10100 M1 PO; -AZITHROMYCIN 2250 MG PO; -BENEFIBER152 GM PO; -DIOVAN40 MG PO; -DURAGESIC1 EACH TOP; -NAPROSYN500 MG PO; -OXYCODONE HCL30 MG PO; -PERFOROMIS20 MCG/2 M IH; -PROTONIX40 M1 PO; -STIOLTO; -STIOLTO RESPIMAT4 GM IH; -VIAGRA100 MG PO
[2017-10-30 14:34] LABS: HEMATOCRIT 29.7 % (42.0-52.0); HEMOGLOBIN 9.9 gm/dL (14.0-18.0); MCHC 33.3 g/dL (28.0-37.0); MCV 89.8 fL (80.0-100.0); PLATELET COUNT 312 thou/uL (150-400); RBC 3.31 mil/uL (4.50-6.00); RDW 16.2 % (10.5-14.5); WBC 12.5 thou/uL (4.0-11.0)
[2017-10-30 14:38] LABS: ANION GAP 8 mmol/L (7-16); BUN 18 mg/dL (7-18); CHLORIDE 105 mmol/L (98-107); CO2 31 mmol/L (21-32); CREATININE 1.7 mg/dL (0.7-1.3); GLUCOSE 131 mg/dL (74-106); POTASSIUM 3.8 mmol/L (3.5-5.1); SODIUM 144 mmol/L (136-145)
[2017-10-30 14:47] LABS: ALBUMIN 3.7 g/dL (3.4-5.0); SGOT 18 U/L (15-37); SGPT 27 U/L (30-65); TOTAL BILIRUBIN 0.2 mg/dL (<0.1-1.0); TOTAL PROTEIN 6.6 g/dL (6.4-8.2); TROPONIN-I < 0.04 ng/mL (<0.06)
[2017-10-30 15:07] LABS: ABSOLUTE NEUTROPHILS 7.9 thou/uL (1.4-8.2); METAMYELOCYTES 2 %; MYELOCYTES 1 %
[2017-10-30 15:08] LABS: ANISOCYTOSIS 1+; BURR CELLS OCCASIONAL; TEARDROPS OCCASIONAL
[2017-10-30 15:36] LABS: BE(vivo) 2.2 mmol/L (-2 to +3); HCO3 26.8 mmol/L (22.0-26.0); PCO2 41.7 mmHg (35.0-45.0); PO2 102.8 mmHg (80.0-100.0); pH 7.426 (7.360-7.450); sO2 97.8 % (92.0-98.0)
[2017-10-30] MEDS ORDERED: LEVAQUIN 500 M500 M2 PO (16:05)
[2017-10-30] MEDS ORDERED: PREDNISONE 20 M20 MG PO (16:05)
[2017-10-30] MEDS ORDERED: VENTOLIN HFA 1818 GM INH (16:05)
== END 2017-10-30 16:34 | disposition home or self-care (01) ==
LOC: ER 13:38
PROVIDERS: Physician Assistant
DX: J44.1 Chronic obstructive pulmonary disease with (acute) exacerbation (principal); D53.9 Nutritional anemia, unspecified; I12.9 Hypertensive chronic kidney disease with stage 1 through stage 4 chronic kidney disease, or unspecified chronic kidney disease; N18.9 Chronic kidney disease, unspecified; E11.22 Type 2 diabetes mellitus with diabetic chronic kidney disease; E78.5 Hyperlipidemia, unspecified; M19.90 Unspecified osteoarthritis, unspecified site; F32.9 Major depressive disorder, single episode, unspecified; Z88.5 Allergy status to narcotic agent; Z88.0 Allergy status to penicillin; Z88.8 Allergy status to other drugs, medicaments and biological substances

== ENCOUNTER → 2017-12-16 | Outpatient (CLI) | payer OTHER ==
[~2017-12-16] VITALS: Ht 162.6 cm; Wt 89.4 kg
[~2017-12-16] MED LIST changes: +ALLOPURINOL 10100 M1 PO; +AZITHROMYCIN 2250 MG PO; +BENEFIBER152 GM PO; +DURAGESIC1 EACH TOP; +NAPROSYN500 MG PO; +PERFOROMIS20 MCG/2 M IH; +STIOLTO; +STIOLTO RESPIMAT4 GM IH; +VIAGRA100 MG PO
--- NOTE | ~2017-12-16 | HPC ---
[facility] [place] [address] PAIN MANAGEMENT CONSULTATION Name: DONNY GARCIA SUDHEER Room #: REG NICK Lindsay#: [id number] Admission: 12/16/17 Attend Phys: Spenser Leyva MD Discharge: Date of : 43 Report #: [id number] THIS REPORT FOR: //name// CC: Lauro Leyva DATE OF SERVICE: 12/16/2017 ADDENDUM IMPRESSION: Osteoarthritis with pain in the right shoulder. PROCEDURE: Injection, right shoulder. A shoulder injection was offered for relief of right shoulder pain. The skin was prepped with ChloraPrep and anesthetized. A 25-gauge needle advanced in the shoulder joint using a posterior approach. After negative aspiration, I injected a total of 4 mL of 0.5% bupivacaine mixed with 40 mg of triamcinolone. He tolerated the procedure well and was observed for short time and discharged. <ELECTRONICALLY SIGNED> By: Spenser Leyva MD 12/20/17 1230 1242 0009 Spenser Leyva MD /nt
--- NOTE | ~2017-12-16 | HPC ---
[facility] [place] [address] [place] [address] PAIN MANAGEMENT CONSULTATION Name: DONNY GARCIA Room #: REG NICK CalvoJocy#: [id number] Admission: 12/16/17 Attend Phys: Spenser Leyva MD Discharge: Date of : 43 Report #: [id number] THIS REPORT FOR: //name// CC: Lauro Leyva DATE OF SERVICE: 12/16/2017 Followup visit for chronic pain. The patient presents to Pain Clinic today with ongoing pain in his low back and new pain in the right shoulder. He has become more and more debilitated over the years. He has become less active as he has continued to see progressive loss of his sight due to macular degeneration and he has also renal insufficiency, COPD, osteoporosis, non-insulin dependent diabetes, hyperlipidemia and hypertension. He has had recent kidney stones. His , Samantha, is his primary caregiver. The patient's has also been helping care for the patient's sister who is 93. They recently moved her into assisted living and there is some concern about her ability to adjust to assisted living from independent. We spent some time today counseling about the importance of making sure that she is in a safe environment. The patient reports that his pain really is "all over" once again. He has pain in his upper body, shoulders, arms, hands from osteoarthritis. He has pain across his low back from spondylosis and he has radiculopathy. He likely also experiences some pain related to peripheral neuropathy from his diabetes. PAST MEDICAL AND SURGICAL HISTORY: All reviewed from the electronic medical record as well as the most recent notes from Dr. Lauro Mandujano. He follows regularly with Dr. Mandujano. PQRS review shows a morbidly obese gentleman who is a definite fall risk. He is wheelchair bound most of the time. His BMI is 33.8. He is under treatment for hypertension and takes an opioid for pain relief under terms of written opioid agreement. We reviewed his functional assessment tool and his risk assessment, which shows that he is at moderate risk for misuse of medications, so we will monitor him carefully per terms of our agreement. He is currently utilizing medication effectively to improve the severe pain that he has and he is grateful for the relief that it provides. He manages constipation with stool softeners and laxatives. CURRENT MEDICATIONS FOR PAIN: OxyContin 10 mg b.i.d. and oxycodone 5 mg/325, 2-3 tablets a day for breakthrough pain. I have agreed to increase his daily allotment of oxycodone to 2-1/2 tablets. His MME calculates at highest daily [address] [address] PAIN MANAGEMENT CONSULTATION Name: DONNY GARCIA SUDHEER [id number] Admission: 12/16/17 Attend Phys: Spenser Leyva MD Discharge: Date of : 43 Report #: [id number] dose at roughly 45 MME. PHYSICAL EXAMINATION: GENERAL: He is in a wheelchair. He is pleasant, no signs of overmedication, depression, anxiety or dementia. VITAL SIGNS: His blood pressure 105/52, heart rate is 105. CHEST: Clear. CARDIAC: Rhythm is regular. MUSCULOSKELETAL: Tenderness across the low back is noted. He is extremely weak, has difficulty with standing. IMPRESSION: 1. Chronic back pain related to degenerative osteoarthritis and spondylosis. 2. Type 2 diabetes. 3. Chronic obstructive pulmonary disease. 4. Osteoporosis. 5. History of depression. 6. Management of high risk medication under terms of written opioid agreement. 7. Osteoarthritis with pain in the right shoulder. PLAN: I renewed his oxycodone and OxyContin. Buccal or urine drug screens will be performed at my discretion. Followup visit planned in 3 months. PROCEDURE: Injection, right shoulder. A shoulder injection was offered for relief of right shoulder pain. The skin was prepped with ChloraPrep and anesthetized. A 25-gauge needle advanced in the shoulder joint using a posterior approach. After negative aspiration, I injected a total of 4 mL of 0.5% bupivacaine mixed with 40 mg of triamcinolone. He tolerated the procedure well and was observed for short time and discharged. <ELECTRONICALLY SIGNED> By: Spenser Leyva MD 12/20/17 1230 1241 0046 Spenser Leyva MD /nt
[2017-12-16 10:53] VITALS: BP 105/52
== END | disposition home or self-care (01) ==
LOC: PAIN 11-18 07:13
DX: M19.011 Primary osteoarthritis, right shoulder (principal); G89.29 Other chronic pain; H35.30 Unspecified macular degeneration; N28.9 Disorder of kidney and ureter, unspecified; J44.9 Chronic obstructive pulmonary disease, unspecified; M81.0 Age-related osteoporosis without current pathological fracture; E11.9 Type 2 diabetes mellitus without complications; E78.5 Hyperlipidemia, unspecified; I10 Essential (primary) hypertension; E66.01 Morbid (severe) obesity due to excess calories; F32.9 Major depressive disorder, single episode, unspecified; Z88.8 Allergy status to other drugs, medicaments and biological substances; Z79.51 Long term (current) use of inhaled steroids; Z99.3 Dependence on wheelchair; Z68.33 Body mass index [BMI] 33.0-33.9, adult; Z79.899 Other long term (current) drug therapy; Z99.81 Dependence on supplemental oxygen; Z87.891 Personal history of nicotine dependence; Z79.891 Long term (current) use of opiate analgesic

== ENCOUNTER 2017-12-29 18:39 | Emergency (ER) | payer OTHER ==
[~2017-12-29] VITALS: Ht 162.6 cm; Wt 89.4 kg
[~2017-12-29 18:39] MED LIST changes: -DURAGESIC1 EACH TOP
[2017-12-29] MEDS ORDERED: DURAGESIC1 EACH TOP (21:04)
== END 2017-12-29 22:39 | disposition home or self-care (01) ==
LOC: ER 18:39
DX: M54.5 Low back pain (principal); G89.29 Other chronic pain; J44.9 Chronic obstructive pulmonary disease, unspecified; M81.0 Age-related osteoporosis without current pathological fracture; I10 Essential (primary) hypertension; E11.9 Type 2 diabetes mellitus without complications; E78.5 Hyperlipidemia, unspecified; M19.90 Unspecified osteoarthritis, unspecified site; F32.9 Major depressive disorder, single episode, unspecified; Z87.442 Personal history of urinary calculi; Z88.5 Allergy status to narcotic agent; Z88.1 Allergy status to other antibiotic agents; Z88.0 Allergy status to penicillin

== ENCOUNTER 2018-03-08 11:40 | Inpatient (IN) | payer OTHER ==
[~2018-03-08] VITALS: Ht 162.6 cm; Wt 90.4 kg
--- NOTE | ~2018-03-08 | EKG ---
[address] [address] ELECTROCARDIOGRAM REPORT Name: DONNY GARCIA SUDHEER Room #: 360-[facility] IN M.R.#: [id number] Admission: 03/08/18 Attend Phys: Lauro Mandujano MD Discharge: 03/11/18 Date of : 41 Report #: [id number] THIS REPORT FOR: //name// [facility] ED Test Date: 2018-03-08 Test Time: 12:01:47 Pat Name: DONNY GARCIA Department: Room: [facility] Gender: M Coordinator Mining Products: EDUAR : 1945 Requested By: Jose Antonio Payne Order Number: [id number] MD: Davide Ramirez Measurements Intervals [place] Rate: 116 P: 1 AL: 116 QRS: -74 QRSD: 146 T: 56 QT: 354 QTc: 492 Interpretive Statements Sinus tachycardia RBBB and LAFB Compared to ECG 10/30/2017 13:55:07 No significant changes Electronically Signed On 03-11-2018 14:57:23 CDT by Davide Ramirez [email or web address] <ELECTRONICALLY SIGNED> By: Davide Ramirez MD 03/11/18 1457 1201 1201 Davide Ramirez MD /EPI
[~2018-03-08 11:40] MED LIST changes: +DURAGESIC1 EACH TOP
[2018-03-08 11:42] VITALS: BP 124/56
[2018-03-08 12:09] LABS: BE(vivo) -3.9 mmol/L (-2 to +3); HCO3 20.7 mmol/L (22.0-26.0); PCO2 35.8 mmHg (35.0-45.0); PO2 123.6 mmHg (80.0-100.0); sO2 98.4 % (92.0-98.0)
[2018-03-08] MEDS ORDERED: ACCUNEB SO1.25 MG/1 (12:29)
[2018-03-08] MEDS ORDERED: NAPROSYN500 MG PO (12:30)
[2018-03-08] MEDS ORDERED: LIPITOR 20 MG T20 M1 PO (12:30)
[2018-03-08] MEDS ORDERED: LASIX 40 MG TAB40 M2 PO (12:30)
[2018-03-08] MEDS ORDERED: PERCOCET PO (12:31)
[2018-03-08] MEDS ORDERED: OXYCODONE HCL30 MG PO (12:31)
[2018-03-08] MEDS ORDERED: POTASSIUM20 PO (12:32)
[2018-03-08] MEDS ORDERED: ZOLOFT50 MG PO (12:32)
[2018-03-08] MEDS ORDERED: PREDNISONE 20 M20 MG PO (12:32)
[2018-03-08] MEDS ORDERED: DIOVAN40 MG PO (12:33)
[2018-03-08] MEDS ORDERED: VOLTAREN GEL 1100 G2 TOP (12:33)
[2018-03-08 12:34] LABS: HEMATOCRIT 30.2 % (42.0-52.0); HEMOGLOBIN 10.1 gm/dL (14.0-18.0); MCH 30.3 pg (26.0-34.0); MCHC 33.4 g/dL (28.0-37.0); MCV 90.6 fL (80.0-100.0); PLATELET COUNT 200 thou/uL (150-400); RBC 3.33 mil/uL (4.50-6.00); RDW 15.7 % (10.5-14.5); WBC 12.1 thou/uL (4.0-11.0)
[2018-03-08] MEDS ORDERED: OXYCONTIN10 M1 PO (12:34)
[2018-03-08 12:44] LABS: ANION GAP 10 mmol/L (7-16); BUN 35 mg/dL (7-18); CALCIUM 8.9 mg/dL (8.5-10.1); CHLORIDE 103 mmol/L (98-107); CO2 28 mmol/L (21-32); CREATININE 1.8 mg/dL (0.7-1.3); GLUCOSE 262 mg/dL (74-106); POTASSIUM 3.7 mmol/L (3.5-5.1); SODIUM 141 mmol/L (136-145)
[2018-03-08 12:56] LABS: ALBUMIN 3.3 g/dL (3.4-5.0); SGOT 11 U/L (15-37); SGPT 31 U/L (30-65); TOTAL BILIRUBIN 0.2 mg/dL (<0.1-1.0); TOTAL PROTEIN 6.2 g/dL (6.4-8.2); TROPONIN-I <0.06 ng/mL (<0.06)
[2018-03-08 13:07] LABS: ABSOLUTE NEUTROPHILS 10.5 thou/uL (1.4-8.2); PLATELET ESTIMATE NORMAL
[2018-03-08 15:08] VITALS: BP 126/57
[2018-03-08 15:30] VITALS: BP 145/73
[2018-03-08 20:42] VITALS: BP 133/72
[2018-03-09 00:26] VITALS: BP 128/70
[2018-03-09 04:25] VITALS: BP 124/69
[2018-03-09 07:43] VITALS: BP 109/66
[2018-03-09 11:17] VITALS: BP 130/60
[2018-03-09 16:37] VITALS: BP 126/64
[2018-03-09 19:35] VITALS: BP 111/56
[2018-03-10 04:07] VITALS: BP 110/56
[2018-03-10 07:37] VITALS: BP 123/53
[2018-03-10 11:54] VITALS: BP 125/54
[2018-03-10 15:17] VITALS: BP 131/56
[2018-03-10 19:19] VITALS: BP 114/50
[2018-03-11 03:14] VITALS: BP 138/66
[2018-03-11 07:45] VITALS: BP 134/58
[2018-03-11] MEDS ORDERED: CEFDINIR300 MG PO (08:09)
[2018-03-11 09:57] VITALS: BP 134/58
[2018-03-11 13:38] VITALS: BP 134/58
[2018-03-11 16:01] VITALS: BP 134/58
[2018-03-14] MEDS ORDERED: OXYCODONE-ACET1 EACH PO (13:46)
[2018-03-14] MEDS ORDERED: OXYCODONE-ACET1 EAC2 PO ×2 (13:46)
[2018-03-14] MEDS ORDERED: OXYCODONE HCL E10 MG PO (13:46)
== END 2018-03-11 14:28 | disposition home health service (06) | DRG 871 ==
LOC: ER 11:40 → 3W 14:39 → EROBS 14:39 → 3W 15:12
PROVIDERS: Physician Assistant
DX: A41.9 Sepsis, unspecified organism (principal); J18.9 Pneumonia, unspecified organism; J96.00 Acute respiratory failure, unspecified whether with hypoxia or hypercapnia; J44.1 Chronic obstructive pulmonary disease with (acute) exacerbation; N17.9 Acute kidney failure, unspecified; J44.0 Chronic obstructive pulmonary disease with (acute) lower respiratory infection; Z99.81 Dependence on supplemental oxygen; E11.9 Type 2 diabetes mellitus without complications; I10 Essential (primary) hypertension; E78.5 Hyperlipidemia, unspecified; H91.93 Unspecified hearing loss, bilateral; G89.29 Other chronic pain; M54.9 Dorsalgia, unspecified; M81.0 Age-related osteoporosis without current pathological fracture; H35.30 Unspecified macular degeneration; F32.9 Major depressive disorder, single episode, unspecified; M19.90 Unspecified osteoarthritis, unspecified site; Z85.828 Personal history of other malignant neoplasm of skin; Z87.81 Personal history of (healed) traumatic fracture; Z87.442 Personal history of urinary calculi; Z87.891 Personal history of nicotine dependence; Z79.52 Long term (current) use of systemic steroids; Z79.899 Other long term (current) drug therapy; Z88.5 Allergy status to narcotic agent; Z88.1 Allergy status to other antibiotic agents; Z88.8 Allergy status to other drugs, medicaments and biological substances
CPT/HCPCS: 10879

== ENCOUNTER → 2018-03-14 | Outpatient (CLI) | payer OTHER ==
[~2018-03-14] VITALS: Ht 162.6 cm; Wt 90.3 kg
[~2018-03-14] MED LIST changes: +ACCUNEB SO1.25 MG/1; +DIOVAN40 MG PO; +OXYCODONE HCL30 MG PO
--- NOTE | ~2018-03-14 | HPC ---
[facility] [address] [place] [address] PAIN MANAGEMENT CONSULTATION Name: DONNY GARCIA Room #: REG NICK Lindsay#: [id number] Admission: 03/14/18 Attend Phys: Spenser Leyva MD Discharge: Date of : 41 Report #: [id number] THIS REPORT FOR: //name// CC: Lauro Leyva DATE OF SERVICE: 03/14/2018 Followup visit for management of chronic low back pain with spondylosis and osteoarthritis, bilateral shoulders, right worse than left and bilateral wrists and knees. The patient is here today with his . He is in a wheelchair. He is legally blind at this point. He complains of daily pain due to his osteoarthritis in low back. He is receiving OxyContin 10 mg twice a day and oxycodone 5/325 up to 3 times a day as needed for severe pain. This provides relief and allows him to get through his day more comfortably. His pain intensity with medications is a 2/10. Since his last visit, he has been hospitalized. He had an exacerbation of his COPD. He follows with Dr. Lauro Mandujano who took care of him while he was in the hospital, and he has been back home now for a week or 2. He denies any significant side effects from his medication and is grateful for the back relief that it provides him. His medications are palliative to him and without them, life is not as full and he says that he does not feel well. He safeguards his medication and his , Samantha helps him manage his medicine. He is a fall risk and needs help standing and walking. He has not fallen, however, in the last [address] Mandujano manages his hypertension and we provide his opioids under terms of written opioid agreement last signed in January 2016. PHYSICAL EXAMINATION: Demonstrates a pleasant gentleman, 5 feet 4 inches, 199 pounds, BMI 34.1. Weight loss is not planned at this time and there was no counseling. He has difficulty moving from sitting to standing position and has a slow unsteady gait. He has tenderness across the low back with limited range of motion in all planes. He denies pain in the legs. IMPRESSION: 1. Chronic low back pain with spondylosis and spinal stenosis. 2. Chronic obstructive pulmonary disease. 3. Osteoarthritis. 4. Type 2 diabetes. 5. Osteoporosis. 6. Management of high risk medications under terms of written opioid agreement. [address] [address] PAIN MANAGEMENT CONSULTATION Name: DONNY GARCIA SUDHEER Room #: REG CLI UmeshJocy#: [id number] Admission: 03/14/18 Attend Phys: Spenser Leyva MD Discharge: Date of : 41 Report #: [id number] Medications were written under terms of our agreement and plan to see him back in the pain clinic in 3 months. By: [id number] Spenser Leyva MD /nt
[2018-03-14 13:12] VITALS: BP 142/76
== END ==
LOC: PAIN 06:30
DX: M47.816 Spondylosis without myelopathy or radiculopathy, lumbar region (principal); M19.011 Primary osteoarthritis, right shoulder; M19.012 Primary osteoarthritis, left shoulder; M17.0 Bilateral primary osteoarthritis of knee; M19.032 Primary osteoarthritis, left wrist; M19.031 Primary osteoarthritis, right wrist; G89.29 Other chronic pain; E11.9 Type 2 diabetes mellitus without complications; J44.9 Chronic obstructive pulmonary disease, unspecified; M81.0 Age-related osteoporosis without current pathological fracture; Z79.891 Long term (current) use of opiate analgesic

== ENCOUNTER 2018-03-23 16:52 | Inpatient (IN) | payer OTHER ==
[~2018-03-23] VITALS: Ht 162.6 cm; Wt 94.4 kg
--- NOTE | ~2018-03-23 | HC ---
[facility] [place] [address] [address] [place] [address] CONSULTATION Name: DONNY GARCIA Room #: 424-P ADM IN M.R.#: [id number] Admission: 03/23/18 Attend Phys: Lauro Mandujano MD Discharge: Date of : 43 Report #: [id number] THIS REPORT FOR: //name// CC: Lauro Mandujano Pulmonary Consultation REFERRAL PHYSICIAN: Lauro Mandujano MD REASON FOR REFERRAL: COPD. HISTORY OF PRESENT ILLNESS: The patient is a 73-year-old white male who presents to the emergency room with dyspnea. A pulmonary consultation is requested. The patient is followed longitudinally by Dr. Morales for COPD. His baseline FEV1 runs around 0.7 L, 37% predicted. He normally uses nebulized albuterol, parental MDI, Stiolto 2 puffs once a day. He is oxygen dependent at 3 L of O2. He also has sleep apnea and is on CPAP. He is currently on auto CPAP between 8 and 14 cm of H2O. The patient notes that over the past 2 years, he has had multiple hospitalizations. Last year, he believes he has had about 7 hospitalization. This year, reviewing the records, he has had 2 hospitalizations along with multiple emergency room visits. He states that he has been feeling better while placed on azithromycin 250 mg once a day for prophylaxis. He states that he has cut down his exacerbation quite significantly. He was just admitted about 2 weeks ago. He returns to the emergency room yesterday evening with progressive dyspnea, cough productive of purulent sputum. These symptoms started about 4 days ago. Otherwise denies any chest pain, hemoptysis. Chest x-ray revealed no acute findings. He has chronic left costophrenic blunting. Diaphragms are flattened. PAST MEDICAL HISTORY: As mentioned above. COPD, severe impairment, on 3 L O2 chronically; FERMIN, on auto CPAP; hypertension, diabetes mellitus type 2, hyperlipidemia, osteoporosis, history of ruptured diverticulitis, resulting in abdominal abscess, surgery, with a colostomy, component of asthma, depression, nephrolithiasis in 2016, compression fracture L5, requiring, kyphoplasty, chronic back pain, macular degeneration, history of falls. ALLERGIES: CODEINE, which causes rash. PIPERACILLIN causes big bumps. [facility] [address] [place] [address] CONSULTATION Name: DONNY GARCIA SUDHEER Room #: 424-P [facility] IN .R.#: [id number] Admission: 03/23/18 Attend Phys: Lauro Mandujano MD Discharge: Date of : 43 Report #: [id number] GABAPENTIN causes him to be incoherent. TAZOBACTAM, reactions not specified. HOME MEDICATIONS: Include 3 L of oxygen, nebulized albuterol, Lipitor, Naprosyn, Percocet, K-Dur, prednisone 20 mg as directed, Zoloft, OxyContin, Lasix, Voltaren though these medications are unverified. FAMILY HISTORY: Notable for mother at age 92, father at the age of 56. SOCIAL HISTORY: He denies any tobacco or alcohol use. SOCIAL HISTORY: The patient has smoked, but quit many years ago. REVIEW OF SYSTEMS: As mentioned above. He did not acknowledge the fact that he has sleep apnea and uses CPAP. He denies any dyspepsia. He states his weight is relatively stable. Otherwise unremarkable. PHYSICAL EXAMINATION: GENERAL: He is awake, alert, in no apparent distress. VITAL SIGNS: Temperature is 98 degrees Fahrenheit, pulse is 100, respiratory rate is 18, blood pressure 150/75 mmHg, saturation 97%. HEENT: Unremarkable. NECK: Supple, without lymphadenopathy or thyromegaly. CHEST: Breath sounds are fair with mild expiratory wheezes. CARDIOVASCULAR: Normal S1, S2. No rubs, murmur or gallop. There is no JVD. There is no carotid bruit. Pulses are 2+/4+ bilaterally. ABDOMEN: Moderately obese, soft, nontender. No organomegaly or masses felt. GENITOURINARY: Deferred. RECTAL: Deferred. EXTREMITIES: There is no edema, cyanosis or clubbing. IMAGING DATA: Chest x-ray shows hyperexpanded lung field, chronic blunting of the left costophrenic angle, otherwise unremarkable. A 2D echocardiogram is grossly unremarkable, ejection fraction mildly reduced at 55%, left ventricular function normal. Aortic valve is normal. Mitral regurgitation is noted. Pulmonary artery pressures are not mentioned. LABORATORY DATA: Electrolytes are normal except for creatinine of 2.0. His baseline creatinine appears to be around 2. WBC 44731, hemoglobin 10.6, platelets are normal, no evidence of left shift. IMPRESSION: 1. Exacerbation of chronic obstructive pulmonary disease. He has had frequent exacerbations past year. Chronic obstructive pulmonary disease exacerbation symptoms appear to have improved while on azithromycin. Other considerations include nocturnal reflux with given his history of sleep apnea. With frequent [facility] [address] [place] [place] [address] CONSULTATION Name: DONNY GARCIA Room #: 424-P ADM IN M.R.#: [id number] Admission: 03/23/18 Attend Phys: Lauro Mandujano MD Discharge: Date of : 41 Report #: [id number] exacerbation, the patient might consider phosphodiesterase inhibitors such as roflumilast. 2. Obstructive sleep apnea, on auto CPAP. 3. Chronic kidney disease, baseline creatinine of 2. 4. Diabetes mellitus type 2. 5. Hypertension. 6. History of depression. 7. Past history of compression fracture involving T5, L5, status post kyphoplasty, chronic back pain. 8. Macular degeneration. 9. Obesity. RECOMMENDATIONS: We would recommend corticosteroids, bronchodilators, broad spectrum antibiotics. We would also suggest proton pump inhibitor given frequent exacerbation. Continue Zithromax therapy for his COPD given that it has helped in the past. DVT and GI prophylaxis is recommended. Resume home CPAP. Given recurrent hospitalization and frequent exacerbations, the patient should be followed closely as an outpatient. Thank you for this consultation. <ELECTRONICALLY SIGNED> By: Yinka Noel MD 03/25/18 [id number] Yinka Noel MD /nt
--- NOTE | ~2018-03-23 | EKG ---
[facility] [address] [place] [address] ELECTROCARDIOGRAM REPORT Name: DONNY GARCIA Room #: REG BULMARO Montoya#: [id number] Admission: 03/23/18 Attend Phys: Discharge: Date of : 41 Report #: [id number] THIS REPORT FOR: //name// 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
--- NOTE | ~2018-03-23 | 2DMMODE ---
[facility] [address] [place] [address] 2 D/M-MODE ECHOCARDIOGRAM Name: DONNY GARCIA SUDHEER Room #: 424-P [facility] IN .R.#: [id number] Admission: 03/23/18 Attend Phys: Lauro Mandujano, Discharge: Date of : 41 Date of Service: 03/24/18 1550 Report #: [id number] THIS REPORT FOR: //name// APPROVED REPORT Study performed: 03/24/2018 14:30:53 EXAM: Comprehensive 2D, Doppler, and color-flow Echocardiogram Patient Location: Bedside Room #: 424 Status: routine BSA: 1.99 HR: 106 bpm BP: 154/75 mmHg Other Information Study Quality: Technically Limited Technically limited study due to body habitus. Indications COPD Dyspnea 2D Dimensions RVDd: 31.68 mm IVSd: 14.05 (7-11mm) LVOT Diam: 21.08 (18-24mm) LVDd: 49.05 mm PWd: 11.59 (7-11mm) Ascending Ao: 26.74 (22-36mm) LVDs: 34.62 (25-40mm) Aortic Root: 29.06 mm IVC: 13.00 mm Volumes Left Atrial Volume (Systole) Single Plane 4CH: 44.47 mL Single Plane 2CH: 54.14 mL LA ESV Index: 29.00 mL/m2 Aortic Valve AoV Peak Jermain.: 1.85 m/s AO Peak Gr.: 13.62 mmHg LVOT Max P.16 mmHg LVOT Max V: 1.24 m/s MELISA Vmax: 2.35 cm2 Mitral Valve E/A Ratio: 0.7 [facility] [email or web address] [place] [address] 2 D/M-MODE ECHOCARDIOGRAM Name: DONNY GARCIA SUDHEER Room #: 424-P [facility] IN [facility]#: [id number] Admission: 03/23/18 Attend Phys: Lauro Mandujano, Discharge: Date of : 41 Date of Service: 03/24/18 1550 Report #: [id number] MV Decel. Time: 102.93 ms MV E Max Jermain.: 1.02 m/s MV A Jermain.: 1.38 m/s MV PHT: 29.85 ms IVRT: 89.97 ms Pulmonary Valve PV Peak Jermain.: 1.12 m/s PV Peak Gr.: 5.01 mmHg Tricuspid Valve RAP Estimate: 5.00 mmHg Left Ventricle The left ventricle is normal size. Regional wall motion is not well visualized but grossly normal. Mild concentric left ventricular hypertrophy. The left ventricular systolic function is normal. The left ventricular ejection fraction is within the normal range. LVEF is 55-60%. Transmitral Doppler flow pattern suggests impaired LV relaxation. Right Ventricle The right ventricle is normal size. The right ventricular systolic function is normal. Atria The left atrium size is normal. The right atrium size is normal. Aortic Valve The aortic valve is normal in structure. No aortic regurgitation is present. There is no aortic valvular stenosis. Mitral Valve Mild mitral annular calcification. Mild mitral regurgitation. No evidence of mitral valve stenosis. Tricuspid Valve The tricuspid valve is normal in structure. Trace tricuspid regurgitation. Unable to assess PA pressure. Pulmonic Valve The pulmonary valve is normal in structure. There is no pulmonic valvular regurgitation. Great Vessels The aortic root is normal in size. IVC is normal in size and [facility] [address] [place] [address] 2 D/M-MODE ECHOCARDIOGRAM Name: DONNY GARCIA [place] Room #: 424-P ADM IN M.R.#: [id number] Admission: 03/23/18 Attend Phys: Lauro Mandujano, Discharge: Date of : 41 Date of Service: 03/24/18 1550 Report #: [id number] collapses >50% with inspiration. Pericardium There is no pericardial effusion. <Conclusion> Technically difficult study The left ventricular systolic function is normal. Regional wall motion is not well visualized but grossly normal. LVEF is 55-60%. The aortic valve is normal in structure. No aortic regurgitation or stenosis. Mild mitral annular calcification. Mild mitral regurgitation. There is no pericardial effusion. <ELECTRONICALLY SIGNED> By: Franklin Morrison MD, FACC 03/24/18 1550 1550 155 Franklin Morrison MD, [facility] /INF
[2018-03-23 16:53] VITALS: BP 125/80
[2018-03-23 17:11] LABS: ABSOLUTE NEUTROPHILS 9.3 thou/uL (1.4-8.2); BASOPHILS 0.4 % (0.0-2.0); EOSINOPHILS 1.4 % (0.0-3.0); HEMATOCRIT 31.7 % (42.0-52.0); HEMOGLOBIN 10.6 gm/dL (14.0-18.0); LYMPHOCYTES 5.5 % (24.0-44.0); MCHC 33.6 g/dL (28.0-37.0); MCV 92.3 fL (80.0-100.0); PLATELET COUNT 248 thou/uL (150-400); POLYS 89.7 % (36.0-66.0); RBC 3.43 mil/uL (4.50-6.00); RDW 16.1 % (10.5-14.5); WBC 10.4 thou/uL (4.0-11.0)
[2018-03-23 17:19] LABS: ANION GAP 8 mmol/L (7-16); BUN 22 mg/dL (7-18); CALCIUM 9.4 mg/dL (8.5-10.1); CHLORIDE 103 mmol/L (98-107); CO2 28 mmol/L (21-32); GLUCOSE 226 mg/dL (74-106); POTASSIUM 4.7 mmol/L (3.5-5.1); SODIUM 139 mmol/L (136-145)
[2018-03-23 17:29] LABS: ALBUMIN 3.6 g/dL (3.4-5.0); SGOT 22 U/L (15-37); SGPT 49 U/L (30-65); TOTAL BILIRUBIN 0.4 mg/dL (<0.1-1.0); TOTAL PROTEIN 6.8 g/dL (6.4-8.2); TROPONIN-I <0.06 ng/mL (<0.06)
[2018-03-23 18:56] VITALS: BP 130/72
[2018-03-23 20:47] VITALS: BP 129/63
[2018-03-24 04:15] VITALS: BP 130/66
[2018-03-24 07:41] VITALS: BP 154/75
[2018-03-24 12:02] VITALS: BP 154/75
[2018-03-24 19:30] VITALS: BP 118/55
[2018-03-25 04:00] VITALS: BP 121/57
[2018-03-25 06:28] LABS: CALCIUM 8.9 mg/dL (8.5-10.1); POTASSIUM 4.5 mmol/L (3.5-5.1)
[2018-03-25 07:22] VITALS: BP 123/64
[2018-03-25 09:57] VITALS: BP 123/64
[2018-03-25 19:08] VITALS: BP 136/65
[2018-03-26 05:09] VITALS: BP 134/57
[2018-03-26 08:06] LABS: CALCIUM 8.6 mg/dL (8.5-10.1); CREATININE 1.8 mg/dL (0.7-1.3); POTASSIUM 4.1 mmol/L (3.5-5.1)
[2018-03-26 10:08] VITALS: BP 118/59
[2018-03-26 20:42] VITALS: BP 114/62
[2018-03-27 04:03] VITALS: BP 118/58
[2018-03-27 06:24] LABS: HEMATOCRIT 27.7 % (42.0-52.0); HEMOGLOBIN 9.6 gm/dL (14.0-18.0); MCH 31.3 pg (26.0-34.0); MCHC 34.5 g/dL (28.0-37.0); MCV 90.8 fL (80.0-100.0); RBC 3.06 mil/uL (4.50-6.00); RDW 15.7 % (10.5-14.5); WBC 8.9 thou/uL (4.0-11.0)
[2018-03-27 06:42] LABS: CALCIUM 8.5 mg/dL (8.5-10.1); CREATININE 1.8 mg/dL (0.7-1.3); MAGNESIUM 2.4 mg/dL (1.8-2.4); POTASSIUM 3.8 mmol/L (3.5-5.1)
[2018-03-27 07:43] VITALS: BP 130/59
[2018-03-27 22:48] VITALS: BP 122/47
[2018-03-28 04:32] VITALS: BP 133/66
[2018-03-28 07:32] VITALS: BP 125/62
[2018-03-28 15:34] VITALS: BP 125/62
[2018-03-28 15:45] VITALS: BP 125/59
[2018-03-28 19:07] VITALS: BP 121/66
[2018-03-29 04:23] VITALS: BP 134/66
[2018-03-29 11:14] VITALS: BP 118/53
[2018-03-29] MEDS ORDERED: PROTONIX40 M1 PO (12:45)
[2018-03-29 14:47] VITALS: BP 125/62
[2018-03-29 16:10] VITALS: BP 110/52
[2018-03-29 19:14] VITALS: BP 125/62
== END 2018-03-29 20:10 | disposition home health service (06) | DRG 871 ==
LOC: ER 16:52 → EROBS 18:34 → 4E 18:34
PROVIDERS: Emergency Medicine; Internal Medicine; Internal Medicine Pulmonary Disease
DX: A41.9 Sepsis, unspecified organism (principal); I50.23 Acute on chronic systolic (congestive) heart failure; J96.21 Acute and chronic respiratory failure with hypoxia; J44.1 Chronic obstructive pulmonary disease with (acute) exacerbation; I13.0 Hypertensive heart and chronic kidney disease with heart failure and stage 1 through stage 4 chronic kidney disease, or unspecified chronic kidney disease; F11.20 Opioid dependence, uncomplicated; E78.5 Hyperlipidemia, unspecified; M81.0 Age-related osteoporosis without current pathological fracture; M19.90 Unspecified osteoarthritis, unspecified site; F32.9 Major depressive disorder, single episode, unspecified; G89.29 Other chronic pain; M54.9 Dorsalgia, unspecified; G47.33 Obstructive sleep apnea (adult) (pediatric); N18.9 Chronic kidney disease, unspecified; E11.22 Type 2 diabetes mellitus with diabetic chronic kidney disease; H35.30 Unspecified macular degeneration; E66.01 Morbid (severe) obesity due to excess calories; K21.9 Gastro-esophageal reflux disease without esophagitis; Z96.659 Presence of unspecified artificial knee joint; Z99.81 Dependence on supplemental oxygen; Z87.01 Personal history of pneumonia (recurrent); Z87.442 Personal history of urinary calculi; Z85.828 Personal history of other malignant neoplasm of skin; Z79.899 Other long term (current) drug therapy; Z88.6 Allergy status to analgesic agent; Z88.8 Allergy status to other drugs, medicaments and biological substances; Z93.3 Colostomy status; Z68.35 Body mass index [BMI] 35.0-35.9, adult; Z90.89 Acquired absence of other organs; Z98.52 Vasectomy status
CPT/HCPCS: 10783

== ENCOUNTER → 2018-05-31 | Outpatient (CLI) | payer OTHER ==
[~2018-05-31] MED LIST changes: +PROTONIX40 M1 PO
--- NOTE | ~2018-05-31 | HPC ---
[facility] [address] [place] [address] PAIN MANAGEMENT CONSULTATION Name: DONNY GARCIA SUDHEER Room #: REG NICK Montoya#: [id number] Admission: 05/31/18 Attend Phys: Desirae Brothers Discharge: Date of : 41 Report #: [id number] THIS REPORT FOR: //name// CC: Desirae Brothers Lauro Mandujano DATE OF SERVICE: 05/31/2018 Followup visit today for chronic low back pain with spondylosis and osteoarthritis. HISTORY OF PRESENT ILLNESS: The patient returns to the pain clinic today for a refill of his medications. He tells me that his current pain score is 2/10. He thinks that the medicines are working very well. Currently, he tells me that he does have pain in the middle of his back, his right shoulder, both his wrists and his knees. He also tells me that he is going to need cataract surgery in the future and is not seeing very well and also has not been hospitalized since February and since he needs to have a cataract surgery, they said he has to be out of the hospital for at least 3 months before they will do that procedure. He tells me that he has been doing very well, staying out of the hospital due to a recent change of his medicines that he takes azithromycin once a day and that has made him not have any further bouts of pneumonia and has kept him out of the hospital, so the patient is very encouraged by this and hopeful that he will have his cataract surgery in June and be able to see again. He tells me that his current pain regimen is helping quite a bit. He is not very active because if he does move very much like walking across the room, he gets shortness of air and has to increase his oxygen from 3-5 liters, he is very limited due to his pulmonary status. He would like a refill of his medications today. ALLERGIES: CODEINE, GABAPENTIN, PIPERACILLIN AND TAZOBACTAM. CURRENT LIST OF MEDICATIONS: Oxycodone 5/325 up to 3 times a day, OxyContin 10 mg twice a day, Protonix 40 mg daily, Voltaren gel as needed, Zoloft 50 mg daily, prednisone 20 mg daily, potassium 20 meq daily, naproxen as needed, Lasix 40 mg daily, Lipitor 20 mg daily, albuterol inhalers as needed, oxygen at 3 liters and erythromycin, unsure of the dose. PQRS: 1. He has a history of osteoarthritis in his wrists, knees, spine. Denies rheumatoid arthritis. 2. Height is 5 feet 4 inches, weight is 199, BMI is 34.1. 3. Vital signs: Blood pressure 106/52, pulse is 108, respirations 18, oxygen sat is 96% on 3 liters of nasal cannula oxygen. 4. Pain score is 2/10. 5. Fall risk. Denies dizziness, does not need help walking or standing and has [address] [address] PAIN MANAGEMENT CONSULTATION Name: DONNY GARCIA SUDHEER Room #: REG NICK Montoya#: [id number] Admission: 05/31/18 Attend Phys: Desirae Brothers Discharge: Date of : 41 Report #: [id number] not fallen in the last 3 months. He is in a wheelchair today, but the patient does tell me that he does walk by himself at home. The patient is not on any blood thinners and is taking antihypertensive medications. 6. Opioid therapy is greater than 6 weeks, therefore, an opioid signed contract is on the chart. 7. Risk assessment tool is moderate and his functional assessment is . 8. Recreational drug use. He denies. He is a former smoker and does not drink alcohol. We did check the prescription monitoring system and the patient is feeling appropriately from his narcotics from Dr. Leyva with no aberrant behaviors noted. The patient tells me that he does safeguard his medicines. PHYSICAL EXAMINATION: GENERAL: This is a well-developed, well-nourished gentleman that appears slightly older than his stated age. He is alert and orientated x 3. His affect is appropriate. HEENT: Normocephalic, atraumatic. Extraocular eye muscles are intact. Mucous membranes are moist and hearing is adequate. MUSCULOSKELETAL: The patient has difficulty moving from sitting to standing position and has a very slow gait when he moves. Tenderness noted across his back and in his knees. He has limited range of motion in all planes. The patient does complain of some hand pain and uses medications for. IMPRESSION: 1. Chronic low back pain with spondylosis and spinal stenosis. 2. Chronic obstructive pulmonary disease. 3. Osteoarthritis. 4. Type 2 diabetes. 5. Osteoporosis. 6. Management of high risk medication under terms of written opioid agreement. We reviewed the fact that opiate medications are being used to provide analgesia adequate to support activities of daily living, not attempting to achieve a specific pain score on the 0-10 Visual Analog Scale. The current opiate medications are providing sufficient analgesia to allow the patient to participate in activities of daily living. The patient is not exhibiting any aberrant behavior suggestive of drug diversion. The patient is not having any adverse reactions to medications. The patient is not suffering from daytime somnolence or mental acuity changes. The patient is managing opiate-induced constipation with appropriate lksw-erx-doptezk agents and dietary considerations. The patient was counseled on concern for caution with operating a motor vehicle while using opiate medications. A physical exam was performed and the patient's functional status was evaluated. All patients with back pain were advised against the bed rest greater than 4 days and were advised to return to normal activities. Pain score assessment was noted and the treatment plan was reviewed with the patient. All current [facility] [address] [place] [address] PAIN MANAGEMENT CONSULTATION Name: DONNY GARCIA SUDHEER Room #: REG NICK Montoya#: [id number] Admission: 05/31/18 Attend Phys: Desirae Brothers Discharge: Date of : 41 Report #: [id number] medications, both prescribed and OTC were reviewed and reconciled on the electronic medical record. Tobacco screening was accomplished and smoking cessation was advised when indicated. BMI was noted and diet/exercise modification was recommended for all patients following outside normal parameters. I reviewed with the patient today their responsibilities to safeguard prescription medications, reviewed their responsibility to utilize medications only as prescribed by the physician. They are to seek and receive pain medications only from 1 physician group ( [facility]). They are to use 1 pharmacy and keep the clinic informed if they change pharmacies. Their responsibilities include making followup visits in a timely fashion and to avoid abrupt discontinuation of medication usage. Their responsibilities further include bringing their medications (bottles from the pharmacy with residual pills) to the visit for possible confirmation of pill counts and the patient understands it is their responsibility to submit to random drug screens to ensure both that the medications prescribed are present, and that no other controlled substances are present. All prescriptions provided today were generated electronically. PLAN: 1. The patient's treatment plan was discussed with the patient and his . The patient has been doing well on his current pain regimen, rating his pain score of 2/10. He denies constipation and does not have any daytime sleepiness. The patient would like to continue on his current medications. I think this is working for him, making him as comfortable as possible, though he does have decreased activity and would like to see an increase, but because of his severe pulmonary problems, he is unable to do much in the form of activity. 2. Script renewed OxyContin 10 mg twice a day, #60 for release today, 4-week and 8-week and Percocet #90 of , the patient takes 3 tablets a day, script was given for today, 4-week and 8-week. 3. We discussed the patient's MME, per the CDC guidelines are below or at 50 mEq, so therefore, he will be seen every 3 months. The patient is agreeable with this plan of care. The patient is seen under the collaboration with Dr. Leyva. <ELECTRONICALLY SIGNED> By: Desirae Brothers 05/31/18 1349 1105 1227 Desirae Brothers /lucho
[2018-05-31 10:05] VITALS: BP 106/52
== END ==
LOC: PAIN 09:08
DX: M47.816 Spondylosis without myelopathy or radiculopathy, lumbar region (principal); M48.061 Spinal stenosis, lumbar region without neurogenic claudication; M19.90 Unspecified osteoarthritis, unspecified site; M81.0 Age-related osteoporosis without current pathological fracture; J44.9 Chronic obstructive pulmonary disease, unspecified; E11.9 Type 2 diabetes mellitus without complications; G89.29 Other chronic pain; Z79.891 Long term (current) use of opiate analgesic; Z79.899 Other long term (current) drug therapy

== ENCOUNTER 2018-08-15 12:24 | Inpatient (IN) | payer OTHER ==
[~2018-08-15] VITALS: Ht 162.6 cm; Wt 94.4 kg
[2018-08-15 12:24] VITALS: BP 140/58
[~2018-08-15 12:24] MED LIST changes: -ACCUNEB SO1.25 MG/1; +ALBUTEROL2.5 MG/31 INH; +ATORVASTATIN CA40 MG PO
[2018-08-15 12:49] LABS: HEMATOCRIT 29.2 % (42.0-52.0); HEMOGLOBIN 9.5 gm/dL (14.0-18.0); MCHC 32.6 g/dL (28.0-37.0); MCV 91.8 fL (80.0-100.0); PLATELET COUNT 202 thou/uL (150-400); RBC 3.18 mil/uL (4.50-6.00); RDW 15.5 % (10.5-14.5); WBC 7.9 thou/uL (4.0-11.0)
[2018-08-15 12:53] LABS: BE(vivo) 5.5 mmol/L (-2 to +3); HCO3 30.8 mmol/L (22.0-26.0); PCO2 48.3 mmHg (35.0-45.0); PO2 158.5 mmHg (80.0-100.0); pH 7.422 (7.360-7.450)
[2018-08-15 12:56] LABS: ANION GAP 7 mmol/L (7-16); BUN 34 mg/dL (7-18); CALCIUM 9.2 mg/dL (8.5-10.1); CHLORIDE 101 mmol/L (98-107); CO2 32 mmol/L (21-32); CREATININE 2.3 mg/dL (0.7-1.3); GLUCOSE 134 mg/dL (74-106); POTASSIUM 4.4 mmol/L (3.5-5.1); SODIUM 140 mmol/L (136-145)
[2018-08-15 13:05] LABS: ALBUMIN 3.3 g/dL (3.4-5.0); SGOT 21 U/L (15-37); SGPT 27 U/L (30-65); TOTAL BILIRUBIN 0.3 mg/dL (<0.1-1.0); TOTAL PROTEIN 6.3 g/dL (6.4-8.2); TROPONIN-I <0.06 ng/mL (<0.06)
[2018-08-15 13:18] LABS: ABSOLUTE NEUTROPHILS 5.1 thou/uL (1.4-8.2)
[2018-08-15] MEDS ORDERED: AZITHROMYCIN 2250 MG PO ×2 (13:33→14:17)
[2018-08-15] MEDS ORDERED: PERCOCET PO (14:08)
[2018-08-15] MEDS ORDERED: POTASSIUM20 PO (14:09)
[2018-08-15] MEDS ORDERED: COZAAR 25 MG TA25 M1 PO (14:10)
[2018-08-15] MEDS ORDERED: PROAIR HFA8.5 GM INH (14:10)
[2018-08-15] MEDS ORDERED: STIOLTO RESPIMAT4 GM INH (14:18)
--- NOTE | 2018-08-15 15:57 | EKG ---
[address] [address] ELECTROCARDIOGRAM REPORT Name: DONNY GARCIA SUDHEER Room #: 170-8 ADM IN M.R.#: [id number] ������������������ Admission: 08/15/18 ������������������ Attend Phys: Lauro Mandujano MD Discharge: ������������������ Date of : 41 Report #: [id number] ����������������������������������������������������������������� [id number] THIS REPORT FOR: //name// [facility] ED Test Date: 2018-08-15 Test Time: 13:01:23 Pat Name: DONNY GARCIA Department: Room: 170 Gender: [employer] Manager: DERREK : 1945 Requested By: Daniela Otoole Order Number: [id number] MD: Davide Ramirez Measurements Intervals [place] Rate: 103 P: 41 WV: 131 QRS: -78 QRSD: 141 T: 48 QT: 374 QTc: 490 Interpretive Statements Sinus tachycardia RBBB and LAFB Compared to ECG 03/23/2018 16:59:22 No significant changes Electronically Signed On 08-15-2018 15:57:38 [employer]PERINTENDENT TESTS by Davide Ramirez [email or web address] ��������������������������������������������� <ELECTRONICALLY SIGNED> ���������������������������������������� By: Davied Ramirez MD ��������������������������������������������� 08/15/18 1557 130 130 Davide Ramirez MD /SUKHI
[2018-08-15 19:13] VITALS: BP 123/50
[2018-08-15 19:27] VITALS: BP 128/60
[2018-08-15 20:38] VITALS: BP 125/54
[2018-08-16 00:26] VITALS: BP 142/54
[2018-08-16 03:26] VITALS: BP 94/59
[2018-08-16 04:37] LABS: CALCIUM 8.7 mg/dL (8.5-10.1); CREATININE 2.1 mg/dL (0.7-1.3); POTASSIUM 4.7 mmol/L (3.5-5.1)
[2018-08-16 08:01] VITALS: BP 153/71
--- NOTE | 2018-08-16 08:13 | NUR ---
ASSESSMENTS CHARTED. PATIENT ARRIVED ON UNIT AFTER SHIFT CHANGE FROM THE ED. PATIENT IS SHORT OF BREATH AND VERY WEAK. C/O CHRONIC PAIN REQUESTING PAIN MEDS. PATIENT ADMITTED INTO THE COMPUTER, SETTLED INTO BED. PLAN OF CARE TO DIURESE, GIVE BREATHING TREATMENTS AND STEROIDS.
--- NOTE | 2018-08-16 09:37 | 2DMMODE ---
[facility] [place] [address] 2 D/M-MODE ECHOCARDIOGRAM Name: DONNY GARCIA SUDHEER Room #: 201-P [facility] IN .R.#: [id number] ������������� Admission: 08/15/18 ������������� Attend Phys: Lauro Mandujano, Discharge: ��� ������������� ��� Date of : 41 Date of Service: 08/16/18 0937 �� Report #: [id number] �������� ��������������������������������������������[id number] THIS REPORT FOR: //name// APPROVED REPORT Study performed: 08/16/2018 08:39:03 EXAM: Comprehensive 2D, Doppler, and color-flow Echocardiogram Patient Location: Bedside Room #: 201 Status: routine BSA: 1.99 HR: 104 bpm BP: 94/59 mmHg Rhythm: Tachycardia Other Information Study Quality: Technically Difficult Indications Congestive Heart Failure COPD Dyspnea Hypertension/HDD Aortic Valve AoV Peak Jermain.: 1.75 m/s AO Peak Gr.: 12.29 mmHg LVOT Max P.86 mmHg LVOT Max V: 1.10 m/s Pulmonary Valve PV Peak Jermain.: 1.10 m/s PV Peak Gr.: 4.85 mmHg Left Ventricle The left ventricle is normal size. Regional wall motion is not well visualized but grossly normal. There is normal left ventricular wall thickness. The left ventricular systolic function is normal. The left ventricular ejection fraction is within the normal range. LVEF is 60-65%. Grade I - abnormal relaxation pattern. Right Ventricle The right ventricle is normal size. The right ventricular systolic function is normal. [facility] [address] [place] [address] 2 D/M-MODE ECHOCARDIOGRAM Name: DONNY GARCIA Room #: 201-P [facility] IN M.R.#: [id number] ������������� Admission: 08/15/18 ������������� Attend Phys: Lauro Mandujano, Discharge: ��� ������������� ��� Date of : 41 Date of Service: 08/16/18 0937 �� Report #: [id number] �������� ��������������������������������������������[id number] The left atrium size is normal. The right atrium size is normal. Aortic Valve The aortic valve is normal in structure. No aortic regurgitation is present. There is no aortic valvular stenosis. Mitral Valve The anterior mitral valve is mildly calcified. Trace to mild mitral regurgitation. No evidence of mitral valve stenosis. Tricuspid Valve The tricuspid valve is normal in structure. There is no tricuspid valve regurgitation noted. Pulmonic Valve The pulmonary valve is normal in structure. There is no pulmonic valvular regurgitation. Great Vessels The aortic root is normal in size. IVC is not well visualized. Pericardium There is no pericardial effusion. <Conclusion> The left ventricular systolic function is normal. LVEF is 60-65%. Mild diastolic dysfunction The aortic valve is normal in structure. No aortic regurgitation or stenosis The anterior mitral valve is mildly calcified. Trace to mild mitral regurgitation. There is no pericardial effusion. ��������������������������������������������� <ELECTRONICALLY SIGNED> ���������������������������������������� By: Franklin Morrison MD, FACC ��������������������������������������������� 08/16/1837 6 Franklin Morrison MD, [facility] /INF
[2018-08-16 11:02] VITALS: BP 113/41
--- NOTE | 2018-08-16 11:11 | NUR ---
Nutrition: Pt seen due to high risk screen for poor intake, weight loss. Admit with SOB x 1 week, COPD. UBW reported as 210#. Current 208# on lasix. Follow trends post diuresis. Pt admits to eating TV dinners at home and understands these are high sodium. Voices no questions on diet. Encouraged smaller more frequent meals due to breathing difficulties. Follow for improved intake of meals with diuresis. Consider low nutrition risk at this time.
[2018-08-16 14:30] VITALS: BP 99/41
--- NOTE | 2018-08-16 15:19 | NUR ---
VSS REMAINS ST/BBB, HR 100-120 DEPENDING ON ACTIVITY. LUNGS DIMINISHED WITH INTERMITTENT WHEEZES, PT BREATHING LABORED, O2 SAT HOME DOSE/4L IS 94% PT DOES GET PIÑA WITH MINIMAL EXERTION. PT UP TO CHAIR WITH PT WITH WALKER AND CONTACT GUARD ASSIST, STEADY BUT INCREASE IN HR AND PIÑA.WILL CONTINUE TO MONITER AND CARE FOR PTPER PLANOF CARE
[2018-08-16 19:33] VITALS: BP 93/46
[2018-08-17 03:51] VITALS: BP 113/54
[2018-08-17 04:01] LABS: CALCIUM 8.9 mg/dL (8.5-10.1); CREATININE 2.3 mg/dL (0.7-1.3); POTASSIUM 4.9 mmol/L (3.5-5.1)
--- NOTE | 2018-08-17 04:18 | NUR ---
PT STAYED IN THE RECLINER ALL NOC DESPITE ENCOURAGEMEMT TO GO TO BED, PROP THE LEGS, HAD THE FOOT OF THE RECLINER ELEVATED, ON 4 L PER NC, OCCASIONAL WHEEZING NOTED, SOB/WINDED WITH MOVEMENT/ACITIVITY, VOIDING USING URINAL, HAS TWO URINAL WITHIN REACHED, ASSIST WITH AMBULATION, ALERT/ORIENTED X4, OXYCONTIN FOR CHRONIC BACK/SHOULDER PAIN, TELEMONITOR SHOWS ST, RECEIVING BREATHING TREATMENT, CREAT UP TO 2.3 THIS MORNING, MONITORED.
[2018-08-17 08:03] VITALS: BP 138/83
[2018-08-17 10:18] VITALS: BP 110/39
[2018-08-17 15:22] VITALS: BP 137/98
--- NOTE | 2018-08-17 17:08 | NUR ---
Patient resides in home with . THey have stairglide to second level of home were bathroom is for patient. patient low endurance due to COPD. Patient usually in chair in family room. He uses walker to ambulate to stair glide then to restroom on second floor. He uses a urinal on first floor. reports mostly spends time in chair. When going to rest room he takes rest breaks. and patient agreeable to HH at least at [place]. They have used [facility] in past. They have Care Staff STATEMENT SERVICES REPRESENTATIVE who comes Tues, THurs from 10-2 so can leave home and errands. reports patient has been at [facility] in past and might be beneficial to consider skilled at [place]. Patient with home oxygen and nebulizer. He has a concentrator on first and second floor. Casemgt following.
--- NOTE | 2018-08-17 18:41 | NUR ---
ASSUMED PATIENT CARE THIS AM. PATIENT A&O, NC @4L, 5L WITH EXCERTION. RESPIRATORY TREATMENTS SCHEDULED/PRN. UP X1 ASSIST WITH GAIT BELT AND WALKER. CHRONIC BACK PAIN STATED, MANAGED WITH ORAL MEDICATION. TOLERATING DIET.
[2018-08-17 18:50] VITALS: BP 95/44
--- NOTE | 2018-08-17 18:54 | HC ---
[facility] [place] [address] CONSULTATION Name: DONNY GARCIA SUDHEER Room #: 201-P [facility] IN M.R.#: [id number] Admission: 08/15/18 ������������������ Attend Phys: Lauro Mandujano MD Discharge: ������������������ Date of : 41 Report #: [id number] THIS REPORT FOR: //name// CC: Lauro Mandujano DATE OF SERVICE: 08/15/2018 PULMONARY CONSULTATION REFERRAL PHYSICIAN: Dr. Mandujano. REASON FOR REFERRAL: Hypoxia. HISTORY OF PRESENT ILLNESS: The patient is a 73-year-old white male who presented to Emergency Room with progressive dyspnea. A pulmonary consultation was requested. The patient is known to the pulmonary service. He has known severe COPD. He is followed longitudinally by Dr. Morales. His baseline FEV1 measures 0.7 liter at 37% predicted. He was last hospitalized around March 2018. Since then, he has done fairly well until about a week ago when he started to notice his leg edema. Over the last several days, he has noticed progressive dyspnea. He has had a cough, but sputum production is minimal and is clear. Denies any fever, night sweats or chills or sore throat. With progressive dyspnea, he presented to the Emergency Room. Chest x-ray in the ER was grossly unremarkable. In regards to severe COPD, he has done fairly well on maintenance bronchodilator therapy along with Zithromax. He is normally on 3 liters of O2 chronically. He also has sleep apnea. He is on auto CPAP between 8 and 14 cm H2O. PAST MEDICAL HISTORY: As mentioned above, COPD, severe impairment, baseline FEV1 of 0.7 liter at 37% predicted, 3 liters of O2; FERMIN, on auto CPAP, hypertension, diabetes mellitus type 2, hyperlipidemia, osteoporosis, ruptured diverticulitis resulting in abdominal abscess requiring laparotomy, depression, nephrolithiasis, compression fracture of L5, kyphoplasty, chronic back pain, obesity having lost about 20 pounds over the past several months, history of falls. PAST SURGICAL HISTORY: As mentioned above. ALLERGIES: CODEINE, WHICH CAUSES RASH; PENICILLIN CAUSES BIG WELTS, GABAPENTIN MAKES HIM INCOHERENT AND TAZOBACTAM, REACTIONS NOT SPECIFIED. [facility] [address] [place] [address] CONSULTATION Name: DONNY GARCIA WINSTON Room #: 201-P [facility] IN .R.#: [id number] Admission: 08/15/18 ������������������ Attend Phys: Lauro Mandujano MD Discharge: ������������������ Date of : 41 Report #: [id number] MEDICATIONS: Home medication list is reviewed, this includes oxycodone, recent course of Omnicef, nebulized albuterol, Lipitor, Naprosyn, prednisone 20 mg once a day, Zoloft, Percocet, potassium supplements, Cozaar, ProAir HFA, azithromycin 250 mg p.o. every day, Stiolto Respimat once a day, Lasix 40 mg once a day. FAMILY HISTORY: Notable for mother at the age of 92. Father at the age of 56. SOCIAL HISTORY: He is . He is retired. Denies any alcohol use. He has smoked, but quit many years ago. REVIEW OF SYSTEMS: As mentioned above, notable for progressive dyspnea on exertion. He has lost about 20 pounds over the past few months. Otherwise, as mentioned above. PHYSICAL EXAMINATION: GENERAL: He is awake, alert, appears to be moderately dyspneic. VITAL SIGNS: Temperature is 98.5 degrees Fahrenheit, pulse is 110, respiratory rate is 20, blood pressure 99/41 mmHg and saturation 96%. HEENT: Normocephalic, atraumatic. NECK: Supple, without lymphadenopathy or thyromegaly. CHEST: Mild expiratory wheezes. CARDIOVASCULAR: Normal S1, S2. No murmurs or gallop. There is no JVD. There is no carotid bruit. Pulses are 2+/4+ bilaterally. ABDOMEN: Obese, soft, nontender, no organomegaly or masses felt. GENITOURINARY: Deferred. RECTAL: Deferred. EXTREMITIES: There is 1-2+ bilateral lower extremity edema. No cyanosis or clubbing. NEUROLOGICAL: Grossly intact. LABORATORY DATA: Portable chest x-ray shows small lung volumes, otherwise clear. Electrolytes: Sodium 140, potassium 4.4, chloride 101, CO2 of 32, BUN is 34, creatinine is 2.3. Liver enzymes are grossly unremarkable. Baseline creatinine is around 2.2. Arterial blood gas revealed pH 7.42, pCO2 of 48, pO2 158 on 4 liters of O2. Albumin 3.3. IMPRESSION: 1. Acute on chronic hypercapnic hypoxic respiratory failure in this 73-year-old white male secondary to exacerbation of chronic obstructive pulmonary disease. Heart failure is also likely with increasing lower extremity edema. 2. Chronic obstructive pulmonary disease, severe impairment, exacerbation. 3. Probable component of asthma. 4. Chronic hypoxic respiratory failure. The patient is chronically on 3 liters O2. [facility] [address] [place] [address] CONSULTATION Name: DONNY GARCIA SUDHEER Room #: 201-P [facility] IN [place].#: [id number] Admission: 08/15/18 ������������������ Attend Phys: Lauro Mandujano MD Discharge: ������������������ Date of : 41 Report #: [id number] 5. Chronic kidney disease. 6. Hypertension. 7. Chronic back pain. 8. Obesity. The patient has been successful in losing about 20 pounds in the last couple of months. RECOMMENDATION: Agree with treatment plans including corticosteroids, bronchodilators and broad spectrum antibiotics. DVT and GI prophylaxis will be indicated. Thank you for this consultation. ��������������������������������������������� <ELECTRONICALLY SIGNED> ���������������������������������������� By: Yinka Noel MD ��������������������������������������������� 08/17/18 1854 1750 0616 iYnka Noel MD /nt
[2018-08-18] VITALS (7 sets, daily range): BP systolic 98–121; BP diastolic 42–53
[2018-08-18 04:35] LABS: CALCIUM 8.7 mg/dL (8.5-10.1); CREATININE 2.4 mg/dL (0.7-1.3); POTASSIUM 4.4 mmol/L (3.5-5.1)
--- NOTE | 2018-08-18 04:44 | NUR ---
ASSESSMENT DOCUMENTED.PT BEEN RESTING IN NAD.UP IN THE RECYCLINER WITH SAVANAH LES ELEVATED ALL NOC.PIÑA WITH ACTIVITIES.PT GET OUT OF BREATH EVEN WITH SLIGHT ACTIVITIES,NEB TX PER ORDERS.VOIDS VIA URINAL.SINUS TACHY ON MONITOR.POSSIBLE DISCHARGE TODAY OR TOMORROW.WILL CONT TO MONITOR PER POC.
--- NOTE | 2018-08-18 14:29 | NUR ---
Followup visit made with the pt. [facility] aware [place] and can accept him. He really wants to return home with hh vs snf [place]. He is sob today and dc timeframe is uncertain. He has been to [facility] SNF in the past and they do not have any availability til mid next week should he change his mind and decide on SNF. The pt has private duty care for 4hrs every Wednesday and so his can get out of the house. Support provided. DC plan is home with [facility] when medically ready.
--- NOTE | 2018-08-18 14:31 | NUR ---
RECIEVED PATIENT AT 0705. SLEEPING BUT AWAKES TO VOICE. OX4. CONTINUES WITH PRN BREATHING TREATMENTS AND HEART BURN TREATED WITH MAALOX. GI COCKTAIL GIVEN X ONE DOSE WITH GOOD RESULTS. XANAX WILL BE GIVEN 3 TIMES A DAY FOR ANXIETY. SOB WITH EXERTION, O2 AT 5L NC. DECREASED PO INTAKE WITH HEART BURN.
--- NOTE | 2018-08-18 16:31 | NUR ---
FAXED REFERRAL TO [facility] OP SPOKE WITH CARMEN IN [facility]. SHE RECEIVED REFERRAL AND WILL REVIEW.DCP TO FOLLOW.
--- NOTE | 2018-08-19 06:14 | NUR ---
ASSESSMENT DOCUMENTED.PT RESTING IN NAD.VSS.ON MONITOR STACHY.PT SLEEPING MOST OF THE NIGHT.CONT TO BE TAHYCARDIAC AND HAVING DIFFICULTIES BREATHING WITH ACTIVITIES.NEB TX HELPS DURING RESP DISTRESS.ON O2 AT 4 LITERS PNC.EDEMA TO BLES HAS SIGNIFICANTLY IMPROVED.PT SLEPT ON THE RECYCLINER WITH BLES ELEVATED THROUGH THE NOC.PAIN MEDS GIVEN PER ORDERS D/T SHOULDERS AND BACK PAIN,PARTIAL RELIEF REPORTED.PT DENIES ANY NEEDS AT THIS TIME.WILL CONT TO MONITOR PER POC.
[2018-08-19 06:22] VITALS: BP 114/46
[2018-08-19 07:10] VITALS: BP 112/48
[2018-08-19 07:57] LABS: HEMATOCRIT 26.2 % (42.0-52.0); HEMOGLOBIN 8.9 gm/dL (14.0-18.0); MCH 30.9 pg (26.0-34.0); MCV 90.9 fL (80.0-100.0); RBC 2.88 mil/uL (4.50-6.00); RDW 15.4 % (10.5-14.5)
[2018-08-19 08:07] LABS: CALCIUM 8.9 mg/dL (8.5-10.1); POTASSIUM 4.7 mmol/L (3.5-5.1)
[2018-08-19 11:50] VITALS: BP 104/46
[2018-08-19 14:48] VITALS: BP 103/53
--- NOTE | 2018-08-19 14:49 | NUR ---
Should the pt be dc'd to home with hh this weekend, orders to be faxed to [facility] at [phone] and the oncall nurse notified of dc [phone].
[2018-08-19 15:55] VITALS: BP 99/46
--- NOTE | 2018-08-19 16:32 | NUR ---
PATIENT SEEN BY COMPOSITE LAYUP WORKER, JOHAN, FOR CONSULLT. PATIENT IS NOT OPEN TO REHAB STAY AND PLANS TO RETUN TO HIS HOME AT DISCHARGE FROM ACUTE HOSPITAL STAY.
[2018-08-19 19:14] VITALS: BP 143/105
[2018-08-20 00:32] VITALS: BP 115/50
[2018-08-20 04:20] VITALS: BP 108/50
--- NOTE | 2018-08-20 04:55 | NUR ---
ASSESSMENT DOCUMENTED.PT BEEN RESTING IN NO ACUTE DISTRESS.VSS.A/OX4.ON O2 AT 4LITERS.PT TOLERATES ACTIVITIES BETTER THAT THE LAST COUPLE OF DAYS W/O MUCH RESP DISTRESS.UP W/ STAFF TO BR,ON 5LITERS PNC WITH ACTIVITIES.SHOULDER/BACK PAIN COTROLLED WITH PAIN MEDS PER ORDERS.ANTICIPATING DISCHARGE THIS WEEKEND TO HOME WITH HH.WILL CONT TO MONITOR.
[2018-08-20 06:36] LABS: CALCIUM 8.9 mg/dL (8.5-10.1); POTASSIUM 4.7 mmol/L (3.5-5.1)
[2018-08-20 07:05] VITALS: BP 128/51
[2018-08-20] MEDS ORDERED: DEMADEX 2020 MG/1 TA PO (08:41)
[2018-08-20] MEDS ORDERED: PREDNISONE 20 M20 MG PO (08:43)
[2018-08-20] MEDS ORDERED: PREDNISONE 20 M20 M1 PO (09:16)
[2018-08-20] MEDS ORDERED: ATORVASTATIN CA40 MG PO (09:16)
[2018-08-20] MEDS ORDERED: ALBUTEROL2.5 MG/31 INH (09:16)
[2018-08-20] MEDS ORDERED: ZOLOFT50 MG PO (09:16)
[2018-08-20] MEDS ORDERED: POTASSIUM20 PO (09:16)
[2018-08-20] MEDS ORDERED: LEVAQUIN 750 M750 MG PO (09:16)
[2018-08-20] MEDS ORDERED: COZAAR 25 MG TA25 M1 PO (09:16)
[2018-08-20] MEDS ORDERED: PANTOPRAZOLE SO40 M1 PO (09:16)
[2018-08-20] MEDS ORDERED: STIOLTO RESPIMAT4 GM INH (09:16)
[2018-08-20] MEDS ORDERED: PROAIR HFA8.5 GM INH (09:16)
[2018-08-20] MEDS ORDERED: LASIX 40 MG TAB40 M2 PO (09:16)
[2018-08-20 11:25] VITALS: BP 122/54
[2018-08-20 11:38] VITALS: BP 103/53
== END 2018-08-20 16:38 | disposition home health service (06) | DRG 291 ==
LOC: ER 12:24 → EROBS 13:40 → 2N 13:40
PROVIDERS: Hospitalist; Internal Medicine Cardiovascular Disease; Internal Medicine Pulmonary Disease; Nurse Practitioner Gerontology; Student in an Organized Health Care Education/Training Program; ADMIT Family Medicine
DX: I13.0 Hypertensive heart and chronic kidney disease with heart failure and stage 1 through stage 4 chronic kidney disease, or unspecified chronic kidney disease (principal); J96.21 Acute and chronic respiratory failure with hypoxia; J96.22 Acute and chronic respiratory failure with hypercapnia; I50.43 Acute on chronic combined systolic (congestive) and diastolic (congestive) heart failure; J44.1 Chronic obstructive pulmonary disease with (acute) exacerbation; N17.9 Acute kidney failure, unspecified; E78.5 Hyperlipidemia, unspecified; M81.0 Age-related osteoporosis without current pathological fracture; M19.90 Unspecified osteoarthritis, unspecified site; F32.9 Major depressive disorder, single episode, unspecified; H35.30 Unspecified macular degeneration; H91.93 Unspecified hearing loss, bilateral; G89.29 Other chronic pain; M54.9 Dorsalgia, unspecified; D64.9 Anemia, unspecified; K21.9 Gastro-esophageal reflux disease without esophagitis; N18.9 Chronic kidney disease, unspecified; E11.22 Type 2 diabetes mellitus with diabetic chronic kidney disease; G47.33 Obstructive sleep apnea (adult) (pediatric); E66.9 Obesity, unspecified; Z68.35 Body mass index [BMI] 35.0-35.9, adult; Z87.891 Personal history of nicotine dependence; Z91.81 History of falling; Z85.828 Personal history of other malignant neoplasm of skin; Z87.442 Personal history of urinary calculi; Z87.01 Personal history of pneumonia (recurrent); Z99.81 Dependence on supplemental oxygen; Z79.899 Other long term (current) drug therapy; Z88.1 Allergy status to other antibiotic agents; Z88.5 Allergy status to narcotic agent; Z88.8 Allergy status to other drugs, medicaments and biological substances
CPT/HCPCS: 10081

== ENCOUNTER → 2018-09-26 | Outpatient (CLI) | payer OTHER ==
[~2018-09-26] VITALS: Ht 162.6 cm; Wt 91.8 kg
[~2018-09-26] MED LIST changes: +COZAAR 25 MG TA25 M1 PO; +DALIRESP250 MCG PO; +DALIRESP500 MCG PO; +DEMADEX 2020 MG/1 TA PO; +LEVAQUIN 750 M750 MG PO; +PANTOPRAZOLE SO40 M1 PO; +PROAIR HFA8.5 GM INH; +STIOLTO RESPIMAT4 GM INH; +[UNRECOGNIZED DRUG - OTHER] PO
[2018-09-26 13:29] VITALS: BP 147/71
--- NOTE | 2018-09-26 13:38 | NUR ---
Pain Clinic Assessment: 1. History of Osteoarthritis: ALL OVER History of Rheumatoid Arthritis: Not Applicable 2. Height: 5 ft. 4 in. 162.6 cm. Weight: 202.4 lb. oz. 91.808 kg. Patient's BMI: 34.7 3. Vital Signs: BP: 147/71 Pulse: 125 Resp: 24 Temp: 02 Sat: 96 ECG Mon: 4. Pain Intensity: 1 5. Fall Risk: Dizziness: N Needs help standing or walking: Y Fallen in the last 3 months: N Fall risk comments: 6. Patient on Blood Thinner: None 7. History of Hypertension: Y 8. Opioid Therapy greater than 6 weeks: Y Opiate Contract Signed: 02/03/16 9. Risk Assessment Tool Provided: MOD 10. Functional Assessment Tool: 11. Recreational Drug Use: Never Drug Type: Tobacco Use: Former Smoker Tobacco Type: Amount or Packs/day: How Many Years: Alcohol Use: No Frequency: Quant:
--- NOTE | 2018-09-27 07:52 | HPC ---
[facility] [address] [place] [address] PAIN MANAGEMENT CONSULTATION Name: DONNY GARCIA Room #: REG PADMINIChari Montoya#: [id number] Admission: 09/26/18 ������������������ Attend Phys: Desirae Brothers Discharge: ������������������ Date of : 41 Report #: [id number] THIS REPORT FOR: //name// CC: Desirae Brothers Lauro Mandujano DATE OF SERVICE: 09/26/2018 CHIEF COMPLAINT: Chronic low back pain with spondylosis and osteoarthritis. HISTORY OF PRESENT ILLNESS: This is a very pleasant 73-year-old gentleman who returns to the Pain Clinic today for refill of his medications. He tells me that he was having some increased pain this past winter with changes in the barometric pressure and just being so cold that he was needing to take a few extra pain pills. Since his last visit in May, he has had one extra script of his oxycodone given to him by Dr. Spenser Leyva that enabled him to take 3-4 tablets on the bad days, but he tells me that he is back to taking 2-3 tablets a day again of his oxycodone. He rates his pain score today as a 1 out of 10 today telling me that he would like a medication refill. He also continues to take his OxyContin 2 times a day. He tells me that he is breathing better. They did start him on a new respiratory drug and he feels that it has been very helpful. He does complain of increased edema in his arms and feet. At times, his right arm has significant edema that he tells me today is a good day. He would like a refill of his medications. He is here with his who is very helpful in caring for him as well as he has a home health aide that comes 2 days a week and a visiting nurse that comes 2 days a week and he continues to do his physical therapy and occupational therapy exercises at home that he was taught when he had home therapy treatments. The patient and tell me they are trying to work with the long-term care insurance to get things covered for him with all of his care that he is needing on a daily basis. ALLERGIES: CODEINE, TAZOBACTAM, PIPERACILLIN AND GABAPENTIN. CURRENT MEDICATIONS: Oxycodone 5/325 up to 3 times a day, albuterol inhaler as needed, Zoloft 50 mg daily, Cozaar 25 mg daily, Lipitor 40 mg at bedtime, prednisone 40 mg daily, Protonix 40 mg daily, OxyContin 10 mg b.i.d., oxygen 3-4 liters, and Daliresp 250 mg 1 p.o. q. day. PQRS: 1. He has a history of osteoarthritis all over, especially in his hands, wrists, knees and spine. He denies any rheumatoid arthritis. 2. Height is 5 feet 4 inches, weight is 202, BMI is 34.7. 3. Vital signs: 147/71, pulse is 120, respirations 24, oxygen sat is 96 on 3 liters nasal cannula. Pain score 1/10. 4. Fall risk. Denies dizziness, in a wheelchair today. Does need help walking and has not fallen in the last 3 months. The patient is not on any blood [address] [address] PAIN MANAGEMENT CONSULTATION Name: JOSEDONNY SUDHEER Room #: REG NICK Montoya#: [id number] Admission: 09/26/18 ������������������ Attend Phys: Desirae Brothers Discharge: ������������������ Date of : 41 Report #: [id number] thinners, but does take medicine for hypertension. 5. His opioid therapy is greater than 6 weeks; therefore, an opiate signed contract is on the chart. His risk assessment tool is moderate. His functional assessment is . 6. His recreational drug use, he denies. He is a former smoker and does not drink alcohol. 7. We did check the prescription monitoring system. The patient is filling appropriately from Dr. Spenser Leyva for his medications. We will check a buccal on him for a random drug screen at his next appointment. The patient and family tell me they safeguard his medications, especially since so many people are in his house. PHYSICAL EXAMINATION: GENERAL: This is a well-developed, well-nourished gentleman who appears slightly older than his stated age. He is alert and orientated. His affect is appropriate. HEENT: Normocephalic, atraumatic. Extraocular eye muscles are intact. Hearing is adequate. He is wearing a nasal cannula. MUSCULOSKELETAL: The patient has difficult time moving. He is in a wheelchair today. He has a very slow gait he tells me when he moves. He complains of tenderness in his thumb and across his shoulders and mid back today. IMPRESSION: 1. Chronic low back pain with spondylosis and spinal stenosis. 2. Chronic obstructive pulmonary disease. 3. Osteoarthritis. 4. Type 2 diabetic. 5. Osteoporosis. 6. Management of high risk medications under terms of written opioid agreement. PLAN: 1. We discussed treatment options with the patient today. We will continue his medicines of OxyContin 10 mg b.i.d. Scripts given for today, 4-week prescription and 8-week prescription. 2. We discussed the patient's breakthrough pain medicine and how many tablets he is requiring a day. He tells me now since the weather has been improving, he is back to 2-3 tablets a day, not needing the 4-5 that he had taken in the wintertime. So, therefore scripts will be given for oxycodone 5/325, #90 for today, 4-week release and 8-week release. 3. The patient tells me he does not have any problems with constipation or daytime sleepiness. He does sleep in a recliner though that is where he finds most comfortable with his breathing issues. I encouraged the patient to keep active with his therapy that he is doing at home. [address] [address] PAIN MANAGEMENT CONSULTATION Name: DONNY GARCIA SUDHEER Room #: REG NICK Montoya#: [id number] Admission: 09/26/18 ������������������ Attend Phys: Desirae Brothers Discharge: ������������������ Date of : 41 Report #: [id number] 4. The patient will be seen in 3 months' time period. The patient is seen in collaboration today with Dr. Spenser Leyva. ��������������������������������������������� <ELECTRONICALLY SIGNED> ���������������������������������������� By: Desirae Brothers ��������������������������������������������� 09/27/18 0752 1506 040 Desirae Brothers /lucho
== END ==
LOC: PAIN 09-19 08:58
DX: M47.816 Spondylosis without myelopathy or radiculopathy, lumbar region (principal); G89.29 Other chronic pain; M19.041 Primary osteoarthritis, right hand; M19.042 Primary osteoarthritis, left hand; M17.0 Bilateral primary osteoarthritis of knee; M19.031 Primary osteoarthritis, right wrist; M19.032 Primary osteoarthritis, left wrist; J44.9 Chronic obstructive pulmonary disease, unspecified; E11.9 Type 2 diabetes mellitus without complications; M81.0 Age-related osteoporosis without current pathological fracture; Z88.5 Allergy status to narcotic agent; Z88.8 Allergy status to other drugs, medicaments and biological substances; Z79.899 Other long term (current) drug therapy; Z79.891 Long term (current) use of opiate analgesic

== ENCOUNTER 2018-12-10 23:32 | Inpatient (IN) | payer OTHER ==
[~2018-12-10] VITALS: Ht 162.6 cm; Wt 88.5 kg
--- NOTE | ~2018-12-10 | HC ---
[facility] [place] [address] CONSULTATION Name: DONNY GARCIA SUDHEER Room #: 206-[facility] IN M.R.#: [id number] Admission: 12/11/18 ������������������ Attend Phys: Lauro Mandujano MD Discharge: 12/16/18 ������������������ Date of : 41 Report #: [id number] THIS REPORT FOR: //name// CC: Lauro Mandujano DATE OF SERVICE: 12/15/2018 We were asked by Dr. Rendon to see the patient. HISTORY OF PRESENT ILLNESS: The patient is a 73-year-old with coronary artery disease. The patient presented to the Emergency Department on 12/11 with chest pain. The patient states that he had what he thought was indigestion. The patient used his own albuterol nebulizer and inhaler to help alleviate the symptoms, but this did not happen. The patient was brought to the Emergency Department by [facility] and the patient was given an aspirin en route. The pain began to resolve on the ambulance ride to the Emergency Department. We note that the patient had feeling of gas bubble and he drank some soda. The patient vomited two times after the breathing treatment. It is not clear, which of these helped him with the symptoms. We note that the patient is chronically on 3 liters of oxygen at home. PAST MEDICAL HISTORY: Past history is also significant for heart failure, hypertension, hyperlipidemia and chronic obstructive pulmonary disease. The patient takes azithromycin and prednisone chronically at home. The patient is seen by Dr. Lauro Mandujano and Dr. Rafi Morales. Other past history significant for diabetes mellitus, arthritis. MEDICATIONS: At home includes pantoprazole, prednisone, atorvastatin, losartan, sertraline, albuterol, tiotropium, olodaterol inhaler, oxycodone. ALLERGIES: CODEINE, TAZOBACTAM, GABAPENTIN, PIPERACILLIN. SOCIAL HISTORY: Denies tobacco use. The patient is . REVIEW OF SYSTEMS: CONSTITUTIONAL: Denies fever or chills. EYES: Denies eye pain, visual change. The patient does wear glasses and has a history of macular degeneration. HEENT: No hearing changes, ear drainage, infection, neck pain or soreness. RESPIRATORY: Chronic obstructive pulmonary disease, on home oxygen, but denies cough or hemoptysis. CARDIAC: As mentioned epigastric discomfort, masquerading as indigestion. No [address] [place] [address] CONSULTATION Name: DONNY GARCIA FORDS BRANCH [facility] IN M.R.#: [id number] Admission: 12/11/18 ������������������ Attend Phys: Lauro Mandujano MD Discharge: 12/16/18 ������������������ Date of : 43 Report #: [id number] palpitations. GASTROINTESTINAL: As mentioned nausea and vomiting with the episode, but no previous abdominal pain, vomiting, or diarrhea. GENITOURINARY: No burning, frequency, urgency. MUSCULOSKELETAL: Chronic arthritis. SKIN: No rash or infection. NEUROLOGIC: No focal motor or sensory dysfunction. PHYSICAL EXAMINATION: VITAL SIGNS: Temperature 36.7, heart rate 88, respiratory rate 18, blood pressure 118/57, O2 sat 98 on 3.5 liters. GENERAL: The patient is a short fellow, endomorphic habitus with underlying sarcopenia and chronically deconditioned look, no acute distress when I saw the patient. He was lying in bed without obvious discomfort. HEENT: Normocephalic. Extraocular movements appear full. Pupils are round, equal. No obvious oral or pharyngeal problems. NECK: No mass, no bruit. CHEST: Faint wheeze right lower lung, amphoric breath sounds. HEART: Regular rate and rhythm. Normal S1, S2. No murmur. ABDOMEN: Soft. Obese, no mass, no tenderness. EXTREMITIES: 1+ pitting edema in lower extremities. No clubbing, cyanosis. NEUROLOGIC: No obvious motor or sensory dysfunction. SKIN: No rash or infection. DIAGNOSTIC DATA: Cardiac catheterization by Dr. Rendon showed important left main and left anterior descending stenosis with calcification, circumflex had mild proximal lesion, right coronary; origin of the right is not well defined, but I do not see any specific lesion. The patient has important chronic obstructive pulmonary disease. He states that he is on 3 liters of oxygen chronically at home and has been told he is not a surgical candidate by both his anesthesiologist (for chronic pain) and by his pulmonary physician (Dr. Morales). I agree that the patient would be at high risk for perioperative pulmonary complications and if there is any way that percutaneous techniques are possible that this be considered prior to surgery. Risks and details of surgery of course include but are not limited to bleeding, infection, anesthesia risks, heart and lung problems, stroke and and the risk, benefit ratio in this patient is probably pretty even over the long haul. It is a privilege to participate in this challenging patient's care. Thank you for the consult. ��������������������������������������������� ���������������������������������������� By: ��������������������������������������������� [id number] Ed Gutierrez MD /nt
[2018-12-10 23:39] VITALS: BP 135/58
[2018-12-11] VITALS (7 sets, daily range): BP systolic 124–158; BP diastolic 64–82
[2018-12-11 00:08] LABS: ABSOLUTE NEUTROPHILS 11.1 thou/uL (1.4-8.2); BASOPHILS 0.3 % (0.0-2.0); EOSINOPHILS 0.2 % (0.0-3.0); HEMATOCRIT 26.5 % (42.0-52.0); HEMOGLOBIN 8.5 gm/dL (14.0-18.0); LYMPHOCYTES 5.2 % (24.0-44.0); MCH 27.1 pg (26.0-34.0); MCHC 32.1 g/dL (28.0-37.0); MCV 84.5 fL (80.0-100.0); PLATELET COUNT 257 thou/uL (150-400); POLYS 84.3 % (36.0-66.0); RBC 3.14 mil/uL (4.50-6.00); RDW 15.3 % (10.5-14.5); WBC 13.1 thou/uL (4.0-11.0)
[2018-12-11 00:15] LABS: CALCIUM 8.4 mg/dL (8.5-10.1); CREATININE 1.7 mg/dL (0.7-1.3)
[2018-12-11 00:21] LABS: ALBUMIN 3.3 g/dL (3.4-5.0); TOTAL BILIRUBIN 0.2 mg/dL (<0.1-1.0); TOTAL PROTEIN 6.1 g/dL (6.4-8.2); TROPONIN-I 0.28 ng/mL (<0.06)
[2018-12-11] MEDS ORDERED: VOLTAREN GEL 1100 G2 TOP (04:16)
[2018-12-11] MEDS ORDERED: POTASSIUM20 PO (04:17)
[2018-12-11] MEDS ORDERED: NAPROSYN500 M1 PO (04:19)
[2018-12-11] MEDS ORDERED: DEMADEX20 MG PO (04:20)
[2018-12-11] MEDS ORDERED: AZITHROMYCIN 2250 MG PO (04:21)
--- NOTE | 2018-12-11 04:45 | NUR ---
PT ARRIVED UNIT AT ABOUT 0240. PT A/OX4, VITAL SIGNS STABLE, TACHYCARDIC ON THE MONITOR. PT TEMPORARILY SOB, LABORED BREATHING WITH ACTIVITY. ON 3-5L O2 WHICH SEEMED TO HELP. HR AND SOB RESOLVED ONCE SETTLED IN BED. ADMISSION, MED REC COMPLETED. PT RESTING IN BED COMFORTABLY. NO COMPLAINTS OF CHEST PAIN/PAIN. FALL PRECAUTIONS IN PLACE. WILL CONTINUE TO MONITOR.
--- NOTE | 2018-12-11 17:59 | NUR ---
ASSUMED CARE AT SHIFT CHANGE ALERT, AND ORIENTED X4. DENIES ANY CP. . VSS AND AFEBRILE. C/O BACK PAIN AND MEDICATED INDICATED. PROGRSEEING TOWARDS GOALS AND WILL CONTINUE WITH POC. PLAN ECHO POSSIBLA CATH TOMORROW
[2018-12-12 04:07] VITALS: BP 124/70
[2018-12-12 07:45] VITALS: BP 117/66
--- NOTE | 2018-12-12 08:14 | NUR ---
PT RESTING QUIETLY IN ROOM THRU THE NOC, VSS, PAIN CONTROLLED WITH PAIN MEDS, PT VOIDING PER URINAL REPORT GIVEN TO NEXT SHIFT TO CON'T WITH PTS PPOC.
[2018-12-12 08:58] LABS: CALCIUM 8.5 mg/dL (8.5-10.1); CREATININE 1.5 mg/dL (0.7-1.3); POTASSIUM 3.8 mmol/L (3.5-5.1)
--- NOTE | 2018-12-12 09:13 | EKG ---
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 : 1945 Requested By: Kandice Oseguera Order Number: [id number] MD: Franklin Morrison Measurements Intervals [place] Rate: 118 P: 46 DE: 133 QRS: -85 QRSD: 144 T: 76 QT: 358 QTc: 502 Interpretive Statements Sinus tachycardia RBBB and LAFB Compared to ECG 08/15/2018 13:01:23 No significant changes Electronically Signed On 12-12-2018 9:12:55 CDT by Franklin Morrison [email or web address] ��������������������������������������������� <ELECTRONICALLY SIGNED> ���������������������������������������� By: Franklin Morrison MD, [facility] ��������������������������������������������� 12/12/18 09 D: [id number] 56 Franklin Morrison MD, FACC /EPI
--- NOTE | 2018-12-12 09:14 | EKG ---
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 : 1945 Requested By: Lauro Mandujano Order Number: [id number] MD: Franklin Morrison Measurements Intervals [place] Rate: 100 P: 49 [place]: 173 QRS: -70 QRSD: 143 T: 11 QT: 374 QTc: 483 Interpretive Statements Sinus tachycardia RBBB and LAFB Compared to ECG 08/15/2018 13:01:23 No significant changes Electronically Signed On 12-12-2018 9:14:09 CDT by Franklin Morrison [email or web address] ��������������������������������������������� <ELECTRONICALLY SIGNED> ���������������������������������������� By: Franklin Morrison MD, [facility] ��������������������������������������������� 12/12/1814 9 9 Franklin Morrison MD, FAC /EPI
--- NOTE | 2018-12-12 09:36 | 2DMMODE ---
[facility] [address] [address] 2 D/M-MODE ECHOCARDIOGRAM Name: DONNY GARCIA SUDHEER Room #: 206-P [facility] IN .R.#: [id number] ������������� Admission: 12/11/18 ������������� Attend Phys: Lauro Mandujano, Discharge: ��� ������������� ��� Date of : 41 Date of Service: 12/12/18 0936 �� Report #: [id number] �������� ��������������������������������������������[id number] THIS REPORT FOR: //name// APPROVED REPORT Study performed: 12/12/2018 08:22:25 EXAM: Comprehensive 2D, Doppler, and color-flow Echocardiogram Patient Location: Bedside Room #: 206 Status: routine BSA: 1.97 HR: 105 bpm BP: 124/70 mmHg Rhythm: Tachycardia Other Information Study Quality: Adequate Indications COPD Non STEMI Chest Pain Hypertension/HDD 2D Dimensions IVC: 18.00 mm Volumes Left Atrial Volume (Systole) Single Plane 4CH: 38.34 mL Single Plane 2CH: 71.51 mL LA ESV Index: 29.00 mL/m2 Aortic Valve AoV Peak Jermain.: 1.98 m/s AO Peak Gr.: 15.60 mmHg LVOT Max P.77 mmHg LVOT Max V: 0.97 m/s Pulmonary Valve PV Peak Jermain.: 1.30 m/s PV Peak Gr.: 6.74 mmHg Tricuspid Valve TR Peak Jermain.: 3.00 m/s TR Peak Gr.: 36.04 mmHg PA Pressure: 41.00 mmHg [facility] [address] [place] [address] 2 D/M-MODE ECHOCARDIOGRAM Name: DONNY GARCIA Room #: 206-P ADM IN M.R.#: [id number] ������������� Admission: 12/11/18 ������������� Attend Phys: Lauro Mandujano, Discharge: ��� ������������� ��� Date of : 41 Date of Service: 12/12/18 0936 �� Report #: [id number] �������� ��������������������������������������������[id number] Left Ventricle The left ventricle is normal size. There is mild hypokinesis in the apical septal wall. There is mild hypokinesis in the apical inferior wall. There is normal left ventricular wall thickness. The left ventricular systolic function is normal. The left ventricular ejection fraction is within the normal range. LVEF is 55-60%. Grade I - abnormal relaxation pattern. Right Ventricle The right ventricle is normal size. The right ventricular systolic function is normal. Atria The left atrium size is normal. The right atrium size is normal. Aortic Valve The aortic valve is normal in structure. Aortic valve is calcified. No aortic regurgitation is present. There is no aortic valvular stenosis. Mitral Valve The mitral valve is normal in structure. Trace to mild mitral regurgitation. No evidence of mitral valve stenosis. Tricuspid Valve The tricuspid valve is normal in structure. There is trace tricuspid regurgitation. Estimated PAP 41 mmHg. There is mild-moderate pulmonary hypertension. Pulmonic Valve The pulmonary valve is normal in structure. There is no pulmonic valvular regurgitation. Great Vessels The aortic root is normal in size. IVC is normal in size and collapses >50% with inspiration. Pericardium There is no pericardial effusion. <Conclusion> The left ventricle is normal size. LVEF is 55-60%. The aortic valve is normal in structure. [facility] [email or web address] [place] [address] 2 D/M-MODE ECHOCARDIOGRAM Name: DONNY GARCIA SUDHEER Room #: 206-P ADM IN .R.#: [id number] ������������� Admission: 12/11/18 ������������� Attend Phys: Lauro Mandujano, Discharge: ��� ������������� ��� Date of : 41 Date of Service: 12/12/18935 �� Report #: [id number] �������� ��������������������������������������������[id number] Aortic valve is calcified. The mitral valve is normal in structure. Trace to mild mitral regurgitation. The pulmonary valve is normal in structure. There is no pericardial effusion. ��������������������������������������������� <ELECTRONICALLY SIGNED> ���������������������������������������� By: Abdirahman Rendon MD ��������������������������������������������� 12/12/1836 5 5 Abdirahman Rendon MD /INF
--- NOTE | 2018-12-12 09:57 | EKG ---
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 Teacher: VENECIA : 1945 Requested By: Emmie Joseph Order Number: [id number] MD: Franklin Morrison Measurements Intervals [place] Rate: 120 P: 47 MS: 131 QRS: -88 QRSD: 141 T: 42 QT: 343 QTc: 485 Interpretive Statements Sinus tachycardia RBBB and LAFB Compared to ECG 12/11/2018 07:10:48 No significant changes Electronically Signed On 12-12-2018 9:57:20 CDT by Franklin Morrison [email or web address] ��������������������������������������������� <ELECTRONICALLY SIGNED> ���������������������������������������� By: Franklin Morrison MD, [facility] ��������������������������������������������� 12/12/1857 6 6 Franklin Morrison MD, [facility] /EPI
[2018-12-12 10:46] LABS: % SATURATION 8 % (20-39); IRON 28 ug/dL (65-175); TIBC 368 ug/dL (250-450)
[2018-12-12 11:07] LABS: URINE BILIRUBIN NEGATIVE (Negative); URINE BLOOD NEGATIVE (Negative); URINE CLARITY CLEAR; URINE COLOR YELLOW; URINE GLUCOSE-RANDOM* NEGATIVE (Negative); URINE KETONES NEGATIVE (Negative); URINE LEUKOCYTES NEGATIVE (Negative); URINE NITRITE NEGATIVE (Negative); URINE PROTEIN (DIPSTICK) NEGATIVE (Negative); URINE SPECIFIC GRAVITY <= 1.005 (1.005-1.035); URINE UROBILINOGEN 0.2 E.U./dl (0.2-1.0)
[2018-12-12 11:14] LABS: PROT/CREAT RATIO 0.5; URINE CREATININE-RANDOM* <13 mg/dL; URINE PROTEIN-RANDOM* < 6.0 mg/dL (<11.9)
[2018-12-12 11:50] VITALS: BP 116/70
[2018-12-12 15:50] VITALS: BP 101/50
--- NOTE | 2018-12-12 16:00 | NUR ---
ASSUMED CARE AT SHIFT CHANGE, ASSESMENT DOCUMENTED. AFEBRILE AND REMAINS SOB WITH ACITIVITES. ST THROUGHT THE DAY, AND TATYANA SLIGHTLY ELEVATED. WILL CONTINUE WITH POPC.
[2018-12-12 19:36] VITALS: BP 118/55
[2018-12-13 04:46] VITALS: BP 120/63
[2018-12-13 05:12] LABS: ALBUMIN 3.2 g/dL (3.4-5.0); CALCIUM 8.4 mg/dL (8.5-10.1); CREATININE 1.7 mg/dL (0.7-1.3); PHOSPHORUS 5.2 mg/dL (2.5-4.9); POTASSIUM 3.6 mmol/L (3.5-5.1)
--- NOTE | 2018-12-13 06:47 | NUR ---
PATIENT CARES WERE ASSUMED AND SHIFT CHANGE. PATIENT WAS ASSESSED AND MEDS WERE PASSED. GABRIEL MEDS GIVEN TO PROMOTE COMFORT. PATIENT DID SLEEP MOST OF THIS SHIFT. BED IS IN A LOW AND LOCKED POSISTION. THE BED ALARM IS ON
[2018-12-13 07:45] VITALS: BP 112/63
[2018-12-13 08:55] LABS: HEMATOCRIT 28.1 % (42.0-52.0); MCH 27.3 pg (26.0-34.0); MCHC 32.2 g/dL (28.0-37.0); MCV 84.6 fL (80.0-100.0); RBC 3.32 mil/uL (4.50-6.00); RDW 15.6 % (10.5-14.5); WBC 11.2 thou/uL (4.0-11.0)
[2018-12-13 09:08] LABS: PROTIME 10.5 Seconds (9.3-11.4)
[2018-12-13 11:45] VITALS: BP 112/64
[2018-12-13 16:00] VITALS: BP 115/66
--- NOTE | 2018-12-13 17:56 | NUR ---
ASSUMED CARE AT [facility] CHANGE, ALERT AND ORIENTED X4. SR-ST ON THE MONITOR, VSS AND AFEBRILE.C/O CP AT BEGINNING OF THE SHIFT AND WAS TREATED PER CP PROTOCOL AND SEEN BY DR CAMPO. HEART CATH TOMORROW, AND WILL CONTINUE WITH POC.
[2018-12-13 20:00] VITALS: BP 105/56
[2018-12-14 03:29] LABS: ALBUMIN 3.2 g/dL (3.4-5.0); CALCIUM 8.2 mg/dL (8.5-10.1); CREATININE 1.6 mg/dL (0.7-1.3); PHOSPHORUS 4.9 mg/dL (2.5-4.9); POTASSIUM 3.5 mmol/L (3.5-5.1)
--- NOTE | 2018-12-14 04:16 | NUR ---
PATIENTS CARE WAS ASSUMED AT SHIFT CHANGE. PATIENT WAS ASSESSED AND MEDS WERE PASSED. IVF STARTED TO HYDRATE THIS GENTALMAN. HOURLY ROUND DONE. THE BED IS IN A LOW AND LOCKED POSITION
[2018-12-14 05:04] VITALS: BP 125/62
--- NOTE | 2018-12-14 07:55 | EKG ---
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 : 1945 Requested By: Lauro Mandujano Order Number: [id number] MD: Franklin Morrison Measurements Intervals [place] Rate: 101 P: 65 RI: 159 QRS: -91 QRSD: 146 T: 47 QT: 390 QTc: 506 Interpretive Statements Sinus tachycardia RBBB and LAFB Compared to ECG 12/12/2018 09:27:56 No significant changes Electronically Signed On 12-14-2018 7:55:00 CDT by Franklin Morrison [email or web address] ��������������������������������������������� <ELECTRONICALLY SIGNED> ���������������������������������������� By: Franklin Morrison MD, [facility] ��������������������������������������������� 12/14/18 0755 8 8 Franklin Morrison MD, [facility] /EPI
[2018-12-14 08:30] VITALS: BP 141/73
[2018-12-14 10:05] LABS: KAPPA FREE LIGHT CHAINS 9.2 mg/L (3.3-19.4); KAPPA/LAMBDA RATIO 1.11 (0.26-1.65); LAMBDA FREE LIGHT CHAINS 8.3 mg/L (5.7-26.3)
--- NOTE | 2018-12-14 10:51 | NUR ---
Met with patient, at bedside. Patient resides in independent home with . He reports no bathroom on main level but stairglide to second floor. Patient reports home oxygen via [employer] [facility] patient usu at 3-4 liters. reports he gets SOB at home ambulating short distances. Tues/Th patient has approx 6 hours of pvt dty for to run errands otherwise home supportive caregiver. Patient interested with HH at mo does not feel skilled/post acute care needed at mo. They perfer [facility] at mo. Referral to [facility] for review. patient to have cardiac cath today.
--- NOTE | 2018-12-14 14:52 | NUR ---
AAO. AT BEDSIDE. NO COMPLAINTS. SR/ST PER TELE. DR. ZABALA SLOWS IVF. CARDIAC CATH TODAY.
[2018-12-14 20:00] VITALS: BP 118/63
[2018-12-14 20:08] LABS: M-SPIKE Not Observed g/dL (Not Observed)
[2018-12-15] VITALS: BP 131/64
[2018-12-15 04:14] LABS: ALBUMIN 2.9 g/dL (3.4-5.0); CREATININE 1.5 mg/dL (0.7-1.3); PHOSPHORUS 3.8 mg/dL (2.5-4.9); POTASSIUM 3.5 mmol/L (3.5-5.1)
[2018-12-15 05:08] VITALS: BP 112/47
--- NOTE | 2018-12-15 05:28 | NUR ---
PATIENTS CARES WERE ASSUMED AT SHIFT CHANGE.PATIENT WAS ASSESSED AND MEDS WERE PASSED. PATIENT DID COMPLETE BEDREST ORDER AFTER HIS CATH. BANDAGE ON THE RIGHT GROIN SITE IS CLEAN DRY AND INTACK. PAIN MEDS GIVEN DIRECTED. PATIENT DID SLEEP MOST OF THIS SHIFT. HOURLY ROUNDING WAS DONE. THE BED IS IN A LOW AND LOCKED POSITION
[2018-12-15 08:45] VITALS: BP 118/55
[2018-12-15 12:34] VITALS: BP 96/60
[2018-12-15 16:00] VITALS: BP 101/54
--- NOTE | 2018-12-15 19:39 | NUR ---
ASSESSMENT CHARTED, VSS, ALERT AND ORIENTED, COMPLAINS OF PAIN IN RIGHT ARM, RIGHT GROIN DRESSING, CDI, WILL CONTINUE TO MONITOR
[2018-12-15 19:51] VITALS: BP 111/62
--- NOTE | 2018-12-16 04:28 | NUR ---
ASSESSMENTS CHARTED. PT C/O CONSTANT PAIN IN SHOULDER AND LOWER BACK. RECEIVED PERCOSET CHARTED. PLAN OF CARE IS TO RECEIVE ANSWER IF A SURGICAL CANDIDATE OR MEDICAL MANAGEMENT OF MULTI VESSEL DISEASE. HE IS GOING TO GO HOME TODAY AND CONTINUE OUTPATIENT.
[2018-12-16 04:57] VITALS: BP 118/57
[2018-12-16 05:20] LABS: HEMATOCRIT 24.3 % (42.0-52.0); HEMOGLOBIN 7.9 gm/dL (14.0-18.0); MCH 27.1 pg (26.0-34.0); MCHC 32.3 g/dL (28.0-37.0); MCV 83.7 fL (80.0-100.0); RBC 2.91 mil/uL (4.50-6.00); RDW 15.1 % (10.5-14.5); WBC 10.2 thou/uL (4.0-11.0)
[2018-12-16 05:38] LABS: ALBUMIN 2.4 g/dL (3.4-5.0); CALCIUM 7.6 mg/dL (8.5-10.1); CREATININE 1.5 mg/dL (0.7-1.3); PHOSPHORUS 3.8 mg/dL (2.5-4.9); POTASSIUM 3.7 mmol/L (3.5-5.1)
[2018-12-16 08:25] VITALS: BP 133/55
[2018-12-16 10:53] VITALS: BP 133/55
--- NOTE | 2018-12-16 12:02 | HC ---
[facility] [place] [address] CONSULTATION Name: DONNY GARCIA Room #: 206-[facility] IN M.R.#: [id number] Admission: 12/11/18 ������������������ Attend Phys: Lauro Mandujano MD Discharge: ������������������ Date of : 41 Report #: [id number] THIS REPORT FOR: //name// CC: Lauro Mandujano DATE OF SERVICE: 12/12/2018 INCOMPLETE DICTATION NEPHROLOGY CONSULTATION REASON FOR CONSULTATION: Chronic kidney disease. HISTORY OF PRESENT ILLNESS: This 73-year-old gentleman with very severe advanced COPD, chronic kidney disease, formerly followed in our office, presents with a non-ST elevation myocardial infarction. He is being contemplated for a heart catheterization and Renal consultation was called. PAST MEDICAL HISTORY: He has hypertension; very severe COPD, on chronic oxygen and chronic steroids. He also takes daily azithromycin as a prophylactic for pneumonia. Past history has also included an abdominal abscess, which required surgery and a colostomy which was reversed, that was some time ago. ALLERGIES: REPORTEDLY TO CODEINE, PIPERACILLIN, TAZOBACTAM AND GABAPENTIN. MEDICATIONS: Current medications at home include Protonix 40 mg daily, prednisone at varying dosages, Lipitor 40 mg daily, losartan 25 mg daily, Zoloft 50 mg daily, albuterol inhaler respiratory treatments, oxycodone, takes naproxen p.r.n. pain, torsemide 20 mg every other day and azithromycin 250 mg daily. REVIEW OF SYSTEMS: GENERAL: He is easily short-winded. EYES: His vision is stable, but he does have a history of macular degeneration. ENT: Hearing okay with his hearing aids and his swallowing is fine. ENDOCRINE: No diabetes. RESPIRATORY: Easily short-winded, as mentioned. CARDIAC: I believe his cardiac function has been okay. GASTROINTESTINAL: No nausea, vomiting or diarrhea. GENITOURINARY: A little bit of a depressed urinary stream at times. NEUROLOGIC: Generalized weakness, gets around with a walker, more limited by his respiratory status. PHYSICAL EXAMINATION: GENERAL: This is a chronically ill-appearing, somewhat cushingoid-appearing gentleman, easily winded. Nasal cannula oxygen in place. SKIN: Otherwise, unremarkable. [facility] [address] [place] [address] CONSULTATION Name: DONNY GARCIA SUDHEER Room #: 206-P [facility] IN M.R.#: [id number] Admission: 12/11/18 ������������������ Attend Phys: Lauro Mandujano MD Discharge: ������������������ Date of : 41 Report #: [id number] SKELETAL: Shows him to be somewhat overweight. HEENT: Extraocular movements are full and there is no scleral icterus. Hearing and vision intact. Mucous membranes are moist. Tongue, buccal mucosa benign. NECK: Supple, without lymphadenopathy. CHEST: Shows diminished breath sounds with increased expiratory phase. HEART: Regular. ABDOMEN: Soft and nontender. EXTREMITIES: Show trace peripheral edema. LABORATORY DATA: His creatinine is 1.5, which is reasonably low for this patient. Sodium is 146 and potassium is 3.8. Hemoglobin is only 8.5. As mentioned, troponin was as high as 8.5. ASSESSMENT AND PLAN: 1. Chronic kidney disease. He has chronic kidney disease, followed in our office previously and lost to followup. I will check renal sonography, urinalysis, urine protein studies and paraprotein studies for completeness. Volume status is actually pretty good at the current time and he probably is in a good spot for cardiac catheterization. If so, we would hold the losartan and diuretic at the time of the catheterization if he was to have a catheterization tomorrow. He did get torsemide today and the losartan today, so I probably would not do the catheterization today. 2. Steroid-requiring chronic obstructive pulmonary disease. He is on chronic azithromycin, which prolongs the QT interval. It might be not the best choice in the setting of an acute cardiac injury. 3. Non-ST elevation myocardial infarction. Heart catheterization is probably indicated. We will try to minimize the risk. 4. History of hypertension. 5. Severe chronic obstructive pulmonary disease with advanced disease. DICTATION ENDS HERE. ��������������������������������������������� <ELECTRONICALLY SIGNED> ���������������������������������������� By: Vincent Crabtree MD ��������������������������������������������� 12/16/18 1202 1023 1200 Vincent Crabtree MD /nt
--- NOTE | 2018-12-16 12:38 | NUR ---
[facility] on standby for possible dc today or tomorrow. Please fax home health orders to [phone] and call the oncall nurse to confirm dc [phone]. Pt has home o2 in place.
[2018-12-16 16:28] VITALS: BP 114/49
[2018-12-16] MEDS ORDERED: IMDUR 30 MG TAB30 M1 PO (16:57)
[2018-12-16] MEDS ORDERED: METOPROLOL SUCC25 M1 PO (16:57)
--- NOTE | 2018-12-16 19:45 | NUR ---
ASSESSMENT CHARTED, VSS, ALERT AND ORIENTED, HYDROCODONE GIVEN FOR ARM PAIN. PATIENT DISCHARGED TO HOME WITH HOME HEALTH CARE. PATIENT GIVEN DISCHARGE INSTRUCTIONS AND STATED UNDERSTANDING.
--- NOTE | 2018-12-19 21:43 | CATHLAB ---
[facility] [place] [address] INVASIVE PROCEDURE REPORT Name: DONNY GARCIA Room #: 206-P [facility] IN ..#: [id number] ������������� Admission: 12/11/18 ������������� Attend Phys: Lauro Mandujano, Discharge: ��� 12/16/18 ������������� ��� Date of : 41 Date of Service: 12/19/182141 �� Report #: [id number] �������� ��������������������������������������������[id number] THIS REPORT FOR: //name// APPROVED REPORT Study performed: 12/14/2018 15:01:25 Patient Details The patient is a 73 year-old male Event Personnel Abdirahman Rendon Mid Level Project Manager, Marlena Aranda RN RN, Andree Puente RN RN, Ruel Lara RTR Bi Virk Valisa Monitor Procedures Performed Left Heart Cath w/or w/o Coronaries [id number] [facility],supervision of conscious sedation Indication Non-STEMI (>24 hrs to = 48 hrs), Chest pain Procedure Narrative The Right Groin^ was infiltrated with 1% Lidocaine subcutaneous anesthesia. A PINNACLE 4FR Sheath #[id number] sheath was inserted into the RFA^. Coronary angiography was performed using coronary diagnostic catheters. The right coronary system was accessed and visualized with a jr4 catheter. The left coronary system was accessed and visualized with a jl4 catheter. The left ventricle was accessed and visualized with a pigtail catheter. Hemostasis was obtained with manual pressure following sheath removal without any complications. The patient tolerated the procedure well and there were no complications associated with the procedure. There was no hematoma. Intraoperative Conscious Sedation Sedation start time: 1524 Case end Time: 1537 Versed 2 mg Fluoro Time: 3.70 minutes Dose: DAP 7338.00 cGycm2 1228 mGy Contrast Type and Amount: Omnipaque 65 ml Coronary Angiography [facility] [place] [address] INVASIVE PROCEDURE REPORT Name: DONNY GARCIA SUDHEER Room #: 206-[facility] IN ..#: [id number] ������������� Admission: 12/11/18 ������������� Attend Phys: Lauro Mandujano, Discharge: ��� 12/16/18 ������������� ��� Date of : 41 Date of Service: 12/19/18 2142 �� Report #: [id number] �������� ��������������������������������������������[id number] The patient's coronary anatomy is right dominant. Diagnostic Cath Left Main small caliber heavily calcified vessel. bifurcates into left anterior descending and left circumflex atery. there is a distal lesion, eccentric of at least 60% narrowing LAD small to moderate caliber heavily calcified type II vessel with a high grade (> 90% ) lesion at the origin of the first diagonal vessel.it then continues in the anterior interventricular sulcus with mild to moderate irregularities. there is limited but visible right to left collaterals noted on rca injection Diagonal 1 small insignificant caliber vessel Circumflex small caliber vessel coursing along the lateral aspect of the left ventricle rapidly tapering to insignificant caliber Right Coronary large caliber vessel of normal origin with a concentric 40% proximal non flow limiting lesion. the vessel then continues to the crux of the heart giving rise to moderate pda and plvb without high grade lesions Left Ventriculography Left Ventriculography was not performed. LVEDP is measured and elevated Hemodynamics The aortic pressure is 106/58 mmHg with a mean of mmHg. The left ventricular pressure is 109/9 mmHg with a mean of mmHg. The left ventricular end diastolic pressure is 20 mmHg. Conclusion 1. 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 Abnormal hemodynamics with elevated LVEDP Recommendations CABG But in view of his lung disease will need assessment from pulmonary physician as to the suitability and risk. I have discussed pci with either rotoblaber or laser in view of calcifications ��������������������������������������������� <ELECTRONICALLY SIGNED> ���������������������������������������� By: Abdirahman Rendon MD ��������������������������������������������� 12/19/182141 41 41 Abdirahman Rendon MD /INF
[2018-12-20] MEDS ORDERED: NITROGLYCERIN0.4 MG SUBLING (10:01)
[2018-12-20] MEDS ORDERED: OXYCONTIN10 M1 PO (10:19)
[2018-12-20] MEDS ORDERED: OXYCODONE-ACET1 EAC2 PO (10:19)
[2018-12-20] MEDS ORDERED: OXYCODONE-ACET1 EACH PO ×2 (10:19→10:24)
== END 2018-12-16 19:19 | disposition home health service (06) | DRG 280 ==
LOC: ER 23:32 → EROBS 12-11 02:01 → 2N 12-11 02:01
PROVIDERS: Emergency Medicine; Internal Medicine Nephrology; Nurse Practitioner Adult Health; ADMIT Family Medicine
PROC: B2111ZZ Fluoroscopy of Multiple Coronary Arteries using Low Osmolar Contrast (ICD-10-PCS; principal; 2018-12-14)
PROC: 4A023N7 Measurement of Cardiac Sampling and Pressure, Left Heart, Percutaneous Approach (ICD-10-PCS; principal; 2018-12-14)
DX: I21.4 Non-ST elevation (NSTEMI) myocardial infarction (principal); E43 Unspecified severe protein-calorie malnutrition; J44.1 Chronic obstructive pulmonary disease with (acute) exacerbation; E78.5 Hyperlipidemia, unspecified; M81.0 Age-related osteoporosis without current pathological fracture; M19.90 Unspecified osteoarthritis, unspecified site; J45.909 Unspecified asthma, uncomplicated; F32.9 Major depressive disorder, single episode, unspecified; G89.29 Other chronic pain; M54.9 Dorsalgia, unspecified; E11.22 Type 2 diabetes mellitus with diabetic chronic kidney disease; I12.9 Hypertensive chronic kidney disease with stage 1 through stage 4 chronic kidney disease, or unspecified chronic kidney disease; N18.9 Chronic kidney disease, unspecified; R00.0 Tachycardia, unspecified; I25.10 Atherosclerotic heart disease of native coronary artery without angina pectoris; Z93.3 Colostomy status; Z87.442 Personal history of urinary calculi; Z98.49 Cataract extraction status, unspecified eye; Z87.891 Personal history of nicotine dependence; Z88.6 Allergy status to analgesic agent; Z88.8 Allergy status to other drugs, medicaments and biological substances; Z79.82 Long term (current) use of aspirin; Z79.899 Other long term (current) drug therapy; Z98.52 Vasectomy status
CPT/HCPCS: 10081

== ENCOUNTER 2019-01-15 01:42 | Inpatient (IN) | payer OTHER ==
[~2019-01-15] VITALS: Ht 162.6 cm; Wt 87.5 kg
[2019-01-15] VITALS (7 sets, daily range): BP systolic 94–143; BP diastolic 45–75
[~2019-01-15 01:42] MED LIST changes: -DALIRESP250 MCG PO; +DEMADEX20 MG PO; +IMDUR 30 MG TAB30 M1 PO; +METOPROLOL SUCC25 M1 PO; +NAPROSYN500 M1 PO; +NITROGLYCERIN0.4 MG SUBLING
[2019-01-15] MEDS ORDERED: PREDNISONE 20 M20 MG PO (01:52)
[2019-01-15 02:26] LABS: HEMATOCRIT 24.3 % (42.0-52.0); HEMOGLOBIN 7.8 gm/dL (14.0-18.0); MCH 27.3 pg (26.0-34.0); MCHC 32.2 g/dL (28.0-37.0); MCV 84.9 fL (80.0-100.0); PLATELET COUNT 272 thou/uL (150-400); RBC 2.86 mil/uL (4.50-6.00); RDW 16.3 % (10.5-14.5); WBC 9.9 thou/uL (4.0-11.0)
[2019-01-15 02:49] LABS: ABSOLUTE NEUTROPHILS 7.2 thou/uL (1.4-8.2); ANISOCYTOSIS 1+
[2019-01-15 02:51] LABS: BUN 13 mg/dL (7-18); CO2 20 mmol/L (21-32); CREATININE 0.9 mg/dL (0.7-1.3); GLUCOSE 87 mg/dL (74-106); TROPONIN-I <0.06 ng/mL (<0.06)
[2019-01-15 03:06] LABS: SODIUM 146 mmol/L (136-145)
[2019-01-15 03:07] LABS: ANION GAP 12 mmol/L (7-16); CHLORIDE 114 mmol/L (98-107)
[2019-01-15 03:09] LABS: CALCIUM 5.9 mg/dL (8.5-10.1); POTASSIUM 2.9 mmol/L (3.5-5.1)
[2019-01-15 13:58] LABS: ALBUMIN 3.4 g/dL (3.4-5.0); CALCIUM 8.8 mg/dL (8.5-10.1); CREATININE 1.3 mg/dL (0.7-1.3); MAGNESIUM 2.5 mg/dL (1.8-2.4); POTASSIUM 4.3 mmol/L (3.5-5.1); TOTAL BILIRUBIN 0.3 mg/dL (<0.1-1.0); TOTAL PROTEIN 6.1 g/dL (6.4-8.2)
[2019-01-15] MEDS ORDERED: IMDUR 60 MG TAB60 M1 PO (14:44)
[2019-01-15] MEDS ORDERED: TOPROL XL25 MG PO (14:44)
[2019-01-16 01:23] VITALS: BP 112/60
[2019-01-16 04:49] VITALS: BP 141/49
[2019-01-16 04:58] VITALS: BP 135/56
[2019-01-16] MEDS ORDERED: K-DUR 20 MEQ T20 MEQ PO (07:41)
[2019-01-16 08:10] VITALS: BP 118/53
--- NOTE | 2019-01-16 09:07 | EKG ---
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
[2019-01-16 12:14] VITALS: BP 135/56
[2019-01-16 12:21] VITALS: BP 135/56
== END 2019-01-16 13:48 | disposition home health service (06) | DRG 303 ==
LOC: ER 01:42 → EROBS 03:19 → 2N 03:19 → ENTRNSPT 01-16 13:25 → EDTRNSPTSTS 01-16 13:29 → 2N 01-16 13:48
PROVIDERS: Emergency Medicine; ADMIT Family Medicine
DX: I25.10 Atherosclerotic heart disease of native coronary artery without angina pectoris (principal); M81.0 Age-related osteoporosis without current pathological fracture; J44.9 Chronic obstructive pulmonary disease, unspecified; I10 Essential (primary) hypertension; H35.30 Unspecified macular degeneration; E78.5 Hyperlipidemia, unspecified; E83.51 Hypocalcemia; E87.6 Hypokalemia; E83.42 Hypomagnesemia; Z96.659 Presence of unspecified artificial knee joint; H91.90 Unspecified hearing loss, unspecified ear; M19.90 Unspecified osteoarthritis, unspecified site; F32.9 Major depressive disorder, single episode, unspecified; Z99.81 Dependence on supplemental oxygen; Z85.828 Personal history of other malignant neoplasm of skin; Z87.442 Personal history of urinary calculi; Z98.49 Cataract extraction status, unspecified eye; Z88.5 Allergy status to narcotic agent; Z88.8 Allergy status to other drugs, medicaments and biological substances; I25.2 Old myocardial infarction; Z87.891 Personal history of nicotine dependence; Z98.52 Vasectomy status
CPT/HCPCS: 10081

== ENCOUNTER 2019-02-12 05:23 | Inpatient (IN) | payer OTHER ==
[~2019-02-12] VITALS: Ht 162.6 cm; Wt 83.5 kg
[2019-02-12] VITALS (7 sets, daily range): BP systolic 109–136; BP diastolic 58–74
--- NOTE | ~2019-02-12 | EMS ---
[address] [address] EMS Patient Care Report Name: DONNY GARCIA Room #: REG BULMARO Montoya#: [id number] Admission: 02/12/19 Attend Phys: Discharge: Date of : 41 Report #: [id number] THIS REPORT FOR: //name// Report Transmitted: 02/12/2019 04:58 EMS Care Summary [facility] MED-ACT Incident [id number] @ 02/12/2019 04:49 Incident Location [address] [place] [address] Patient DONNY GARCIA Male, 74 Years 1945 Patient Address [address] [place] [address] Patient History Congestive Heart Failure (CHF),Chronic Obstructive Pulmonary Disease (COPD),Hypertension, Patient Allergies Codeine, Patient Medications Prednisone, Sertraline, Voltaren, Torsemide, Albuterol, Naproxen, Atorvastatin, Oxygen, Oxycodone, Chief Complaint Chest pressure Disposition Transported No Lights/[place] Dispatch Reason Chest Pain (Non-Traumatic) Transported To [facility] Narrative Complaint: Chest pressure [address] [address] EMS Patient Care Report Name: DONNY GARCIA Room #: REG Lindsay#: [id number] Admission: 02/12/19 Attend Phys: Discharge: Date of : 41 Report #: [id number] History: Pt reports that he woke up from sleep at 0400 hours this morning and states that he had chest pressure upon waking up. Pt states that the pressure did not wake him up. Pt states that he had pressure in his chest that is rated 5/10 and does not radiate. Pt states that over the hour he took 3 nitro pills with relief of his pressure, which is a 0/10 upon EMS arrival. Pt reports that he has 90% and 70% blockage in his arteries and is scheduled for two stents to be placed on Wednesday morning. Pt denies nausea / vomiting, denies headache / dizziness. Assessment: Pt found sitting upright in chair in living room of home, FD on scene assessing patient and obtaining vitals. Pt has no obvious s / s of distress, no obvious s / s of trauma noted. Rendered Treatment: Pt evaluated, vitals assessed, EKG monitored with 12 lead, blood glucose obtained, ASA administered, pt assisted to chair lift which is a few feet away from his position, pt takes lift to garage and is assisted onto cot which is next to patient. Pt is secured and moved to unit. After exerting himself, pt is noted to have bilateral wheezing and complaining that he needs to catch his breath. Pt also reports that his chest pain has returned. Duo-neb treatment administered, vitals re-assessed, nitro spray administered, Fentanyl administered. Transport: Vitals re-assessed, bio-com report to ER given. Pt reports that his pressure is at a 0/10 after nitro and Fentanyl. Destination: Pt transported to [facility] ER via EMS. Pt care transferred to RN in ER room 6 with no changes en route. Pt moved to ER bed via 5 person sheet drag. Initial Vitals @05:12MI Suspected: false @05:01MI Suspected: false @05:14P: 108,R: 19,BP: 156/72,Pain: 5/10,EtCO2: 31,SpO2: 98, @05:19P: 108,R: 18,BP: 144/68,Pain: 0/10,EtCO2: 30,SpO2: 100, @PTAP: 110,R: 18,BP: 130/70,Pain: 0/10,GCS: 15,Glucose: 119,SpO2: 97,Revised Trauma: 12, Assessments @05:05MENTAL:Person Oriented,Time Oriented,Event Oriented,Place Oriented,SKIN:HEENT:Eyes: Left Pupil: 4-mm,Eyes: Right Pupil: 4-mm,Head/Face: No Abnormalities,LUNG SOUNDS:General: No Abnormalities,ABDOMEN:General: No Abnormalities,PELVIS//GI:EXTREMITIES:Left Leg: Edema,Right Leg: Edema,Left Arm: No Abnormalities,Right Arm: No Abnormalities,PULSE:Radial: 2+ Normal,NEURO:No Abnormalities, [facility] [address] [place] [address] EMS Patient Care Report Name: DONNY GARCIA SUDHEER Room #: REG BULMARO Montoya#: [id number] Admission: 02/12/19 Attend Phys: Discharge: Date of : 41 Report #: [id number] Impression Chest Pain / Discomfort Procedures @05:1212-Lead ECGResponse: UnchangedSucceeded@05:1412-Lead ECGResponse: UnchangedSucceeded@05:0112-Lead ECGResponse: UnchangedSucceeded@05:09Saline Lock 10cc (18 ga) Site: Antecubital-RightResponse: UnchangedSucceeded@05:11Albuterol - 2.5 Milligrams (mg) - NebulizedResponse: Improved@05:11Ipratropium - 0.5 Milligrams (mg) - NebulizedResponse: Improved@05:15Nitro [place] - 0.4 Milligrams (mg) - SublingualResponse: Improved@05:19Fentanyl - 50 Micrograms (mcg) - Intravenous (IV)Response: Improved@05:03Aspirin - 324 Milligrams (mg) - OralResponse: Unchanged Timeline PATIENT CARE SECRETARY,BP: 130/70 M,PULSE: 110,RR: 18 R,SPO2: 97 Ox,ETCO2: ,B,PAIN: 0,GCS: 15, 04:46,Call Received 04:46,Psap Call 04:49,Dispatched 04:50,En Route 04:58,On Scene 04:58,At Patient 05:01,12-Lead ECG,Response: UnchangedSucceeded, 05:01,BP: / M,PULSE: ,RR: R,SPO2: Ox,ETCO2: ,BG: ,PAIN: ,GCS: , 05:03,Aspirin - 324 Milligrams (mg) - Oral,Response: Unchanged 05:09,Saline Lock 10cc 18 ga Site: Antecubital-Right,Response: UnchangedSucceeded, 05:11,Albuterol - 2.5 Milligrams (mg) - Nebulized,Response: Improved 05:11,Ipratropium - 0.5 Milligrams (mg) - Nebulized,Response: Improved 05:12,12-Lead ECG,Response: UnchangedSucceeded, 05:12,BP: / M,PULSE: ,RR: R,SPO2: Ox,ETCO2: ,BG: ,PAIN: ,GCS: , 05:14,12-Lead ECG,Response: UnchangedSucceeded, 05:14,BP: 156/72 M,PULSE: 108,RR: 19 R,SPO2: 98 Ox,ETCO2: 31 ,BG: ,PAIN: 5,GCS: , 05:15,Nitro [place] - 0.4 Milligrams (mg) - Sublingual,Response: Improved 05:16,Depart Scene 05:19,BP: 144/68 M,PULSE: 108,RR: 18 R,SPO2: 100 Ox,ETCO2: 30 ,BG: ,PAIN: 0,GCS: , 05:19,Fentanyl - 50 Micrograms (mcg) - Intravenous (IV),Response: Improved 05:22,At Destination 05:35,Call Closed Disclaimer [email or web address] Copyright 2019 [employer] This EMS Care Summary contains data elements from the applicable legal record [address] [address] EMS Patient Care Report Name: DONNY GARCIA SUDHEER Room #: REG Lindsay#: [id number] Admission: 02/12/19 Attend Phys: Discharge: Date of : 41 Report #: [id number] (which may be displayed differently). It is designed to provide pertinent information for the following purposes: continuity of care, clinical quality, and state data reporting. The complete legal record is available to ED staff and administrators of the receiving hospital in [employer] Patient Tracker. All data is provided "as is."
[~2019-02-12 05:23] MED LIST changes: +IMDUR 60 MG TAB60 M1 PO; +K-DUR 20 MEQ T20 MEQ PO; +TOPROL XL25 MG PO
[2019-02-12] MEDS ORDERED: SERTRALINE HCL100 MG PO (05:41)
[2019-02-12] MEDS ORDERED: PLAVIX 75 MG TA75 M1 PO (05:42)
[2019-02-12] MEDS ORDERED: IRON325 PO (05:43)
[2019-02-12] MEDS ORDERED: ASPIR 8181 MG PO (05:43)
[2019-02-12 05:46] LABS: HEMATOCRIT 22.5 % (42.0-52.0); HEMOGLOBIN 7.2 gm/dL (14.0-18.0); MCH 27.2 pg (26.0-34.0); MCHC 31.8 g/dL (28.0-37.0); MCV 85.4 fL (80.0-100.0); PLATELET COUNT 271 thou/uL (150-400); RBC 2.64 mil/uL (4.50-6.00); RDW 16.8 % (10.5-14.5)
[2019-02-12 05:58] LABS: ANION GAP 9 mmol/L (7-16); BUN 16 mg/dL (7-18); CALCIUM 8.8 mg/dL (8.5-10.1); CHLORIDE 104 mmol/L (98-107); CO2 31 mmol/L (21-32); CREATININE 1.2 mg/dL (0.7-1.3); GLUCOSE 111 mg/dL (74-106); POTASSIUM 3.6 mmol/L (3.5-5.1); SODIUM 144 mmol/L (136-145)
[2019-02-12 06:07] LABS: TROPONIN-I <0.06 ng/mL (<0.06)
[2019-02-12 06:11] LABS: ABSOLUTE NEUTROPHILS 6.4 thou/uL (1.4-8.2); PLATELET ESTIMATE NORMAL
--- NOTE | 2019-02-12 07:19 | NUR ---
PT. ARRIVED AT FLOOR AROUND 0640; AOX4; NO C/O CP; RESTING ON BED; CONCENTS SIGNED; PASSED ON REPORT TO [facility].
--- NOTE | 2019-02-12 11:44 | EKG ---
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
--- NOTE | 2019-02-12 11:44 | EKG ---
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
--- NOTE | 2019-02-12 15:25 | NUR ---
PT ADMITED FROM ER. ADMISSION HX AND ASSESSMENT COMPLETED. VSS. REPORT HAVING INTERMITENT CHEST PAIN. DR CAMPO AND DR MCCORMACK AWARE. ORDERS RECEIVED. 1 NITRO SUBLIGUAL GIVEN WITH RELIEF. NITRO GTT STARTED. AT THE BEDSIDE. NPO AFTER MIDNIGHT FOR CARDIAC CATH IN AM. WILL CONTINUE TO MONITOR.
[2019-02-13] VITALS (41 sets, daily range): BP systolic 102–145; BP diastolic 36–80
[2019-02-13 04:01] LABS: HEMATOCRIT 25.2 % (42.0-52.0); HEMOGLOBIN 8.1 gm/dL (14.0-18.0); MCH 27.7 pg (26.0-34.0); MCHC 32.4 g/dL (28.0-37.0); MCV 85.5 fL (80.0-100.0); PLATELET COUNT 269 thou/uL (150-400); RBC 2.94 mil/uL (4.50-6.00); WBC 9.6 thou/uL (4.0-11.0)
--- NOTE | 2019-02-13 04:01 | NUR ---
RECEIVED PT'S CARE AROUND 1910; PT. ON BED; AOX4; & DAUGHTER AT THE BED SIDE; RELATIVES ST. PT. SHOWING SOME SHAKINESS & SWEATING; NO C/O CP; HEADACHE OR SOB; VS WNL; ST. PT. SOMETIME PRESENTS SHAKINESS AT HOME; PT. EDUCATED ABOUT CALLING IMMEDIATELY IF HAVING CP; ST. UNDERSTANDING; DURING ASSESSMENT PT. C/O BACK PAIN; SCHEDULE PAIN MEDICATION GIVEN; EDUCATED ABOUT CARDIZEM; & PT. ST. UNDERSTANDING; DURING PAIN RE-ASSESSMENT PT. ST. DECREASE PAIN; CHLORIXIDINE WIPES BAD GIVEN; AT MIDNIGHT SBP OVER THE 100s; CHECK CHARTING; NPO; PT. ABLE TO REST FOR A FEW HOURS AFTER 2300; AROUND 0230 PT. C/O ABDOMINAL PAIN; SUGGESTED TO USE THE BED SIDE COMMODE; AGREES; NOT ABLE TO HAVE BM; ST. "I THINK I AM CONSTIPATED"; ABLE TO PASS FLATUS; SOB WITH EXERTION; RESTING BETWEEN ACTIVITIES; HR ON THE 120s WITH ACTIVITY; BREATHING TREATMENT GIVEN BY RT; PT. ST. ABLE FEELING LESS SOB; MONITORING; ASSESSMENT CHART; FOLLOWING POC; WILL PASS ON REPORT.
[2019-02-13 04:34] LABS: ALBUMIN 3.4 g/dL (3.4-5.0); ANION GAP 8 mmol/L (7-16); BUN 12 mg/dL (7-18); CALCIUM 8.9 mg/dL (8.5-10.1); CHLORIDE 100 mmol/L (98-107); CO2 34 mmol/L (21-32); CREATININE 1.4 mg/dL (0.7-1.3); GLUCOSE 114 mg/dL (74-106); POTASSIUM 3.5 mmol/L (3.5-5.1); SGOT 15 U/L (15-37); SGPT 27 U/L (30-65); SODIUM 142 mmol/L (136-145); TOTAL BILIRUBIN 0.4 mg/dL (<0.1-1.0); TROPONIN-I <0.06 ng/mL (<0.06)
[2019-02-13 04:37] LABS: ABSOLUTE NEUTROPHILS 7.2 thou/uL (1.4-8.2); ATYPICAL LYMPHS 1 %; MYELOCYTES 2 %; NUCLEATED RBCS 3 /100WBC
[2019-02-13 04:38] LABS: ANISOCYTOSIS 1+
--- NOTE | 2019-02-13 08:07 | EKG ---
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 : 1945 Requested By: Cielo Suarez Order Number: [id number] MD: Franklin Morrison Measurements Intervals [place] Rate: 111 P: 35 [place]: 143 QRS: -87 QRSD: 143 T: 53 QT: 374 QTc: 508 Interpretive Statements Sinus tachycardia RBBB and LAFB Compared to ECG 02/12/2019 09:44:07 No significant changes Electronically Signed On 02-13-2019 8:07:34 CDT by Franklin Morrison [email or web address] <ELECTRONICALLY SIGNED> By: Franklin Morrison MD, [facility] 02/13/19806 6 6 Franklin Morrison MD, [facility] /EPI
--- NOTE | 2019-02-13 08:10 | NUR ---
ASSUMED PT CARE AT APPROXIMATELY 0700. PT A&O X4. FALL PRECAUTIONS IN PLACE. PT STATES HE IS SOB. ON 4L O2 NC. PT STATED HE WAS NAUSEATED. PT RECIEVED ZOFRAN. PT'S VITAL SIGNS ARE STABLE. PT STATED HE HAD ZERO OUT OF TEN PAIN. PT'S CONSENT SIGNED. PT'S PRE-CATH CHECKLIST COMPLETED. PT'S AT BEDSIDE. PT'S AND PT DENIES FURTHER QUESTIONS FOR PROCEDURE. PT LEFT UNIT AT 0750.
[2019-02-13 08:55] LABS: HEMATOCRIT 22.9 % (42.0-52.0); HEMOGLOBIN 7.2 gm/dL (14.0-18.0); MCHC 31.3 g/dL (28.0-37.0); MCV 86.1 fL (80.0-100.0); PLATELET COUNT 252 thou/uL (150-400); RBC 2.66 mil/uL (4.50-6.00); RDW 17.1 % (10.5-14.5); WBC 8.9 thou/uL (4.0-11.0)
[2019-02-13 09:02] LABS: CALCIUM 7.8 mg/dL (8.5-10.1); CREATININE 1.2 mg/dL (0.7-1.3); POTASSIUM 3.2 mmol/L (3.5-5.1)
[2019-02-13 09:33] LABS: ABSOLUTE NEUTROPHILS 6.1 thou/uL (1.4-8.2); PLATELET ESTIMATE NORMAL
--- NOTE | 2019-02-13 12:11 | NUR ---
PT TRANSFERRED TO ICU POST CARDIAC CATH DUE TO CHANGE IN ACUITY LEVEL. BELONGINGS TAKEN TO NEW ICU BED. REPORT CALLED TO ICU NURSE APPROX 20MIN AGO. SHE DENIES QUESITONS OR CONCERNS REGARDING PT OR TRANSFER. ICU NURSE REPORTS THAT OPTICAL LATHE OPERATOR CALLED REPORT TO HER REGARDING PROCEDURE AND ANY NEW ORDERS/NEW FINDINGS.
--- NOTE | 2019-02-13 14:53 | CATHLAB ---
[facility] [place] [address] INVASIVE PROCEDURE REPORT Name: DONNY GARCIA Room #: 236-P [facility] IN ..#: [id number] Admission: 02/12/19 Attend Phys: Lauro Mandujano, Discharge: Date of : 41 Date of Service: 02/13/19 1453 Report #: [id number] THIS REPORT FOR: //name// APPROVED REPORT Study performed: 02/13/2019 08:29:56 Patient Details Patient Status: In-Patient Room #: The patient is a 74 year-old male Event Personnel David Crane Medical Accountant, Paramjit Blum RN RN, Gil Cat RTGa Peres David Monitor Procedures Performed Left Heart Cath w/or w/o Coronaries [id number] [facility] Place w/wo Plasty Single Left Main [id number] PTCA Single Vessel LAD [id number] PCISINGLE Indication Dyspnea, Unstable angina , Chest pain Risk Factors Chronic Lung DiseaseHypercholesterolemiaPhysical Activity, Coronary Artery DiseaseHypertensionRenal Failure Procedure Narrative The Right Groin^ was infiltrated with 1% Lidocaine subcutaneous anesthesia. A PINNACLE 6FR Sheath #[id number] sheath was inserted into the RFA^. Coronary angiography was performed using coronary diagnostic catheters. The right coronary system was accessed and visualized with a VISTA 6FR JR 4 #[id number] catheter. The left coronary system was accessed and visualized with a VISTA 6FR JL4 #[id number] catheter. Left ventricular/Aortic Valve gradient assessed via catheter pullback. Closure device was deployed with a 6 Fr MYNX CONTROL 6F/7F #[id number]. The patient tolerated the procedure well and there were no complications associated with the procedure. There was no hematoma. Intraoperative Conscious Sedation Sedation start time: 8.28 Case end Time: 10.29 Fentanyl 100 mcg Versed 1 mg [facility] [place] [address] INVASIVE PROCEDURE REPORT Name: DONNY GARCIA [place] Room #: 236-P [facility] IN ..#: [id number] Admission: 02/12/19 Attend Phys: Lauro Mandujano, Discharge: Date of : 41 Date of Service: 02/13/19 1453 Report #: [id number] Fluoro Time: 39.40 minutes Dose: DAP 21513.00 cGycm2 8459 mGy Contrast Type and Amount: Omnipaque 245 ml Coronary Angiography The patient's coronary anatomy is right dominant. Diagnostic Cath Left Main There is a severe stenosis in the ostium and distal segments, 70%. LAD There is a discrete proximal stenosis, 90% with calcification. There is a moderate stenosis in the mid segment, 40%. The distal segment is patent with no flow-limiting lesions. Diagonal 1 There is moderate diffuse disease in the proximal segment, 60%. Circumflex This is a small to moderate size caliber vessel with an ostial stenosis of 95%. Right Coronary There is a dominant vessel with a severe stenosis in the ostial/proximal segment, 70%. R PDA There is a moderate size caliber vessel, patent with no flow-limiting lesions. RPLV There is a moderate size caliber vessel, patent with no flow-limiting lesions. Left Ventriculography Left Ventriculography was not performed. Ejection Fraction was 55-60% based off patient's Echocardiogram. An LVEDP was checked and there is no gradient across the outflow tract. Hemodynamics The aortic pressure is 112/57 mmHg with a mean of 81 mmHg. The left ventricular pressure is 125/7 mmHg with a mean of mmHg. The left ventricular end diastolic pressure is 16 mmHg. There was no gradient across the aortic valve upon pullback. Pullback from the left ventricle to the aorta revealed no gradient across the aortic valve. PCI Technique Lesion Percutaneous coronary intervention was performed on the LM. The lesion stenosis prior to intervention was 70% with BERKLEY 3 flow. A VISTA 6FR JL4 #[id number] Guide Catheter was used to engage the ostium. A Luge Wire .014 x 182CM #[id number] Interventional Guidewire was used to cross the lesion. BALLOON DILATION A Balloon catheter Euphora RX 3.0 x 12 #[id number] was inserted and [address] [address] INVASIVE PROCEDURE REPORT Name: DONNY GARCIA [place] Room #: 236-P [facility] IN M.R.#: [id number] Admission: 02/12/19 Attend Phys: Lauro Mandujano, Discharge: Date of : 41 Date of Service: 02/13/19 1453 Report #: [id number] inflated up to 14.00atm for 9seconds. STENT DEPLOYMENT A drug-eluting stent RESOLUTE LUCIUS RX 3.5 X 12 #[id number] was inserted and inflated up to 16.00atm for 8seconds. Additional Inflation: 18.00atm for 8seconds. 2ND 3.5X12 LUCIUS 16/14 16/8 POST STENT DEPLOYMENT BALLOON DILATION A Balloon catheter Euphora NC RX 3.75 x 12 #[id number] was inserted and inflated up to 16.00atm for 21seconds. Additional Inflation: 20.00atm for 19seconds. Final angiography reveals 0 % stenosis with EBRKLEY 3 flow. PCI Technique Lesion 2 Percutaneous Coronary Intervention was performed on the proximal left anterior descending artery segment. The lesion stenosis prior to intervention was 90% with BERKLEY 3 flow. A VISTA 6FR JL4 #[id number] Guide Catheter was used to engage the ostium. A Luge Wire .014 x 182CM #[id number] Interventional Guidewire was used to cross the lesion. Balloon Dilation A Balloon catheter Euphora RX 2.5 x 10 #[id number] was inserted and inflated up to 16.00atm for 40seconds. Stent Deployment A stent Euphora RX 2.75 x 10 #[id number] was inserted and inflated up to 16.00atm for 13seconds. Final angiography reveals 50 % stenosis with BERKLEY 3 flow. Comments The proximal LAD lesion was dilated with a 2.5 and 2.75 mm compliant balloons. However, both balloons burst during inflation due to calcified areas within the stenotic area. Attempts at passing a noncompliant balloon was unsuccessful, even after using a lauro wire and guideliner. After the final balloon dilatation, the residual lesion is approximately 50% with BERKLEY-3 blood flow. The patient remained hemodynamically stable and will continue with medical therapy at this time. If he remains symptomatic, will consider rotational atherectomy as a staged procedure. PCI Technique Lesion 3 Percutaneous Coronary Intervention was performed on the proximal [facility] [address] [place] [address] INVASIVE PROCEDURE REPORT Name: DONNY GARCIA Room #: 236-P [facility] IN M.R.#: [id number] Admission: 02/12/19 Attend Phys: Lauro Mandujano, Discharge: Date of : 41 Date of Service: 02/13/19 1453 Report #: [id number] circumflex artery segment. Percutaneous coronary intervention was performed on the proximal circumflex artery segment. The lesion stenosis prior to intervention was 95% with BERKLEY 3 flow. A VISTA 6FR JL4 #[id number] Guide Catheter was used to engage the ostium. A Luge Wire .014 x 182CM #[id number] Interventional Guidewire was used to cross the lesion. Balloon Dilation A Balloon catheter Euphora RX 2.0 x 10 #[id number] was inserted and inflated up to 16.00atm for 17seconds. Additional Inflation: 12.00atm for 25seconds. Stent Deployment A drug-eluting stent XIENCE ALPINE RX 2.25 X 08 #[id number] was inserted and inflated up to 16.00atm for 19seconds. Final angiography reveals 5 % stenosis with BERKLEY 3 flow. Conclusion 1. Successful insertion of a drug-eluting stent into the left main artery. 2. Successful insertion of a drug-eluting stent into the ostial left circumflex artery. 3. Balloon angioplasty of a proximal LAD stenosis with a moderate residual stenosis. Unable to consider stent insertion due to a calcified area within the lesion. If symptoms persist, consider rotational atherectomy as a staged procedure. 4. Borderline stenosis of the ostial RCA. 5. Recommend aggressive risk factor management and dual antiplatelet therapy. <ELECTRONICALLY SIGNED> By: David Crane MD 02/13/19 1453 1453 1453 David Crane MD /INF
--- NOTE | 2019-02-13 16:31 | EKG ---
[address] [employer] 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: Patrick GAMBOA : 1945 Requested By: David Crane Order Number: [id number] MD: Franklin Morrison Measurements Intervals [place] Rate: 112 P: 40 SC: 124 QRS: -91 QRSD: 132 T: 71 QT: 377 QTc: 515 Interpretive Statements Sinus tachycardia RBBB and LAFB Compared to ECG 02/13/2019 07:27:40 No significant change was found Electronically Signed On 02-13-2019 16:31:17 CDT by Franklin Morrison [email or web address] <ELECTRONICALLY SIGNED> By: Franklin Morrison MD, [facility] 02/13/19 1631 1059 1059 Franklin Morrison MD, FAC /EPI
[2019-02-13 17:30] LABS: HEMATOCRIT 27.3 % (42.0-52.0); HEMOGLOBIN 8.8 gm/dL (14.0-18.0)
--- NOTE | 2019-02-13 19:23 | NUR ---
PATIENT ARRIVED TO ICU FROM RADIO ELECTRICIAN. HE WAS ALERT AND ORIENTED. HE EXPRESSED INTERMITTENT PAIN, DOCUMENTED. RIGHT GROIN SITE IS INTACT. ONE UNIT OF PACKED RED BLOOD CELLS GIVEN. DR. MELARA ROUNDED THIS AFTERNOON, LASIX GIVEN, POST BLOOD TRANSFUSION COMPLETED. HE EXPRESSED HE FELT PATIENT WAS VOLUME OVERLOADED. ORDERS RECEIVED TO RECHECK HGB AND ONLY TRANFUSE SECOND UNIT IF HGB LESS THAN 7.5. REPEAT HGB WAS 8.8, NO NEED FOR FURTHER TRANSFUSIONS AT THIS TIME. PATIENT THIS EVENING EXPRESSED HIS BREATHING FEELS A LITTLE BETTER. VITAL SIGNS AND ASSESSMENTS DOCUMENTED. REPORT GIVEN TO RADIO/TV TECHNICIAN RN FOR CONTINUATION OF CARE.
[2019-02-14] VITALS (23 sets, daily range): BP systolic 89–151; BP diastolic 41–122
[2019-02-14 06:04] LABS: ALBUMIN 3.1 g/dL (3.4-5.0); ANION GAP 13 mmol/L (7-16); BUN 16 mg/dL (7-18); CALCIUM 8.1 mg/dL (8.5-10.1); CHLORIDE 101 mmol/L (98-107); CO2 27 mmol/L (21-32); CREATININE 1.2 mg/dL (0.7-1.3); GLUCOSE 123 mg/dL (74-106); SGOT 40 U/L (15-37); SGPT 23 U/L (30-65); SODIUM 141 mmol/L (136-145); TOTAL BILIRUBIN 0.5 mg/dL (<0.1-1.0); TOTAL PROTEIN 5.4 g/dL (6.4-8.2); TROPONIN-I <0.06 ng/mL (<0.06)
[2019-02-14 06:06] LABS: POTASSIUM 4.8 mmol/L (3.5-5.1)
--- NOTE | 2019-02-14 06:21 | NUR ---
RECEIVED REPORT FROM GROVER LOZANO AND ASSUMED PATIENT CARE AT 1900. PATIENT IS VERY DROWSY BUT ORIENTED. PATIENT NOTED TO HAVE A DRESSING TO THE RIGHT GROIN THAT IS CDI. PATIENT C/O PAIN TO HIS BACK, LEGS, SHOULDERS, AND NECK AND WAS MEDICATED APPROPRIATELY. PATIENT VS REMAINED STABLE AND NO ACUTE EVENTS OCCURRED DURING THIS SHIFT. PATIENT'S UPDATED BY PHONE AND HOURLY ROUNDING COMPLETED. PATIENT PROGRESSING TOWARD GOAL.
[2019-02-14 07:35] LABS: HEMATOCRIT 25.4 % (42.0-52.0); HEMOGLOBIN 8.2 gm/dL (14.0-18.0); MCH 27.8 pg (26.0-34.0); MCHC 32.3 g/dL (28.0-37.0); MCV 86.3 fL (80.0-100.0); RBC 2.94 mil/uL (4.50-6.00); WBC 12.4 thou/uL (4.0-11.0)
--- NOTE | 2019-02-14 08:24 | EKG ---
[address] [address] ELECTROCARDIOGRAM REPORT Name: DONNY GARCIA Room #: 236-P ADM IN M.R.#: [id number] Admission: 02/12/19 Attend Phys: Lauro Mandujano MD Discharge: Date of : 43 Report #: [id number] THIS REPORT FOR: //name// [facility] Test Date: 2019-02-14 Test Time: 07:11:54 Pat Name: DONNY GARCIA Department: Room: 236 P Gender: M Disability Hearing Officer: VENECIA : 1945 Requested By: David Crane Order Number: [id number] MD: Franklin Morrison Measurements Intervals [place] Rate: 108 P: 51 MN: 149 QRS: -96 QRSD: 142 T: 46 QT: 381 QTc: 511 Interpretive Statements Sinus tachycardia RBBB and LAFB Compared to ECG 02/13/2019 10:59:12 No significant changes Electronically Signed On 02-14-2019 8:24:25 CDT by Franklin Morrison [email or web address] <ELECTRONICALLY SIGNED> By: Franklin Morrison MD, [facility] 02/14/19823 0 0 Franklin Morrison MD, FACC /EPI
--- NOTE | 2019-02-14 09:47 | NUR ---
Met with patient and dtr at bedside. Patient with recent dc January 16 to home with HH. patient resides at home with . He has stairglide to second floor. Home oxygen via [place] home patient usu at 4 liters. PVT dty and Th for to run errands. Patient has rec [facility] in past and would like resumption for home. Patient received stent yesterday reports pain at groin site updated RN. Casemgt following.
--- NOTE | 2019-02-14 16:34 | NUR ---
PATIENT RESTING INTERMITTENTLY IN BED. HE IS UNABLE TO TOLERATE TURNING, IT CAUSES HIM SHORTNESS OF AIR. STERIODS AND PRN BREATHING TREATMENTS ORDERED AND PROVIDED. HE WORKED AND SAT ON SIDE OF BED WITH PT/OT
--- NOTE | 2019-02-14 16:35 | NUR ---
HE DENIES CHEST PAIN. PLAN OF CARE IS TO CONTINUE TO MONITOR PATIENT STATUS, INCREASE ACTIVITY, AND PROVIDE PAIN MANAGEMENT PATIENT HAS CHRONIC PAIN.
[2019-02-15] VITALS (29 sets, daily range): BP systolic 106–158; BP diastolic 49–70
[2019-02-15 05:27] LABS: HEMATOCRIT 21.5 % (42.0-52.0); HEMOGLOBIN 7.1 gm/dL (14.0-18.0); MCH 28.4 pg (26.0-34.0); MCHC 33.2 g/dL (28.0-37.0); MCV 85.5 fL (80.0-100.0); RBC 2.51 mil/uL (4.50-6.00); RDW 15.6 % (10.5-14.5); WBC 9.8 thou/uL (4.0-11.0)
[2019-02-15 05:44] LABS: CALCIUM 8.5 mg/dL (8.5-10.1); CREATININE 1.6 mg/dL (0.7-1.3); POTASSIUM 4.6 mmol/L (3.5-5.1)
--- NOTE | 2019-02-15 06:44 | NUR ---
Pt slept off and on through the night with stable VS and adequate SpO2 on 4L of O2. PRN oxycodones given for c/o pain with desired effect achieved. Voiding per urinal without difficulty and no BM observed this shift. Am lab results noted, continue with POC.
--- NOTE | 2019-02-15 19:30 | NUR ---
ASSESSMENTS AND INTERVENTIONS DOCCUMENTED. PATIENT ALERT AND ORIENTED X4. PATIENT AND SPOUSE EDUCATED ABOUT PLAN OF CARE. PATIENT WORKED WITH OT AND TOLERATED CONSULT. PATIENT GIVEN 1 UNIT OF BLOOD. PATIENT AND SPOUSE EDUCATED ON BLOOD TRANSFUSION. PATIENT TOLERATED TRANSFUSION WITH NO DIFFICULTY. REPORT GIVEN TO NURSE ON CCU. PATIENT TRANSFERED TOP ROOM 212.
--- NOTE | 2019-02-16 04:22 | NUR ---
Pt sitting up in chair most of the evening , prn and scheduled pain meds given for back and R shoulder pain, vss, pt calls out appropriatly for asst. set up for bedside bath able to do this himself and assistance with back care. right groin bruised yet soft and tender to touch. remains on 4l o2, will con't to monitor per ppoc.
[2019-02-16 05:01] VITALS: BP 135/62
[2019-02-16 05:22] LABS: HEMATOCRIT 23.9 % (42.0-52.0); MCH 28.2 pg (26.0-34.0); MCHC 33.5 g/dL (28.0-37.0); MCV 84.2 fL (80.0-100.0); RBC 2.84 mil/uL (4.50-6.00); RDW 15.6 % (10.5-14.5); WBC 10.5 thou/uL (4.0-11.0)
[2019-02-16 05:23] LABS: CALCIUM 8.5 mg/dL (8.5-10.1); CREATININE 1.7 mg/dL (0.7-1.3); POTASSIUM 3.7 mmol/L (3.5-5.1)
[2019-02-16 07:21] VITALS: BP 127/56
[2019-02-16 11:03] VITALS: BP 128/61
--- NOTE | 2019-02-16 13:03 | NUR ---
[facility] is following along for possible hh referral at nd. Therapy notes reviewed and discussed with the care team. 5N consult request and the pt may be a good candidate for acute rehab. The 5N SKEINS YARN EXAMINER to eval and visit with the pt. will follow.
--- NOTE | 2019-02-16 15:23 | NUR ---
PT ALERT AND ORIENTED. RECEIVED SCHEDULED AND PRN PAIN MED WITH PARTIAL RELIEF.UP IN THE CHAIR. NO CARDIAC OR RESPIRATORY DISTRESS NOTED. WILL CONTINUE TO MONITOR.
--- NOTE | 2019-02-16 15:27 | NUR ---
PATIENT SEEN THIS DATE BY JOHAN VÁZQUEZ NP WITH DR. SMITH. PATIENT'S PREFERENCE IS TO RETURN TO HIS HOME AND DECLINES COMING TO REHAB. DUE TO PATIENT'S INCREASE HEART RATE WITH ANY ACTIVITY, PATIENT AT THIS TIME COULD NOT TOLERATE 3 HOURS OF THERAPY REQUIRED BY ACUTE REHAB. JOHAN RECOMMENDED INCREASED CAREGIVER SERVICES IF PATIENT DOES RETURN TO HOME.WILL CONTINUE TO FOLLOW. THIS INFORMATION WAS SHARED WITH VINE PRUNER AND PENCILLER. THANK YOU FOR THIS REFERRAL.
[2019-02-16 15:50] VITALS: BP 124/51
--- NOTE | 2019-02-16 18:47 | HC ---
[facility] [place] [address] CONSULTATION Name: DONNY GARCIA Room #: [address] [place] [address] IN M.R.#: [id number] Admission: 02/12/19 Attend Phys: Lauro Mandujano MD Discharge: Date of : 43 Report #: [id number] THIS REPORT FOR: //name// CC: Lauro Mandujano DATE OF SERVICE: 02/14/2019 REFERRING PHYSICIAN: Lauro Mandujano M.D. REASON FOR REFERRAL: Hypoxia and dyspnea. HISTORY OF PRESENT ILLNESS: The patient is a 74-year-old white male who presents to the ED with chest pain. He had a cardiac evaluation. Following the procedure, he has developed increasing dyspnea. A pulmonary consultation was requested. The patient has known severe COPD. Baseline FEV1 is around 0.7 liters, 37% predicted. He is followed longitudinally by Dr. Rafi Morales. He also has sleep apnea diagnosed a couple of years ago. He has tried BiPAP recently. He only tried it for 1 week and after that he returned the machine as he told Dr. Morales that he could not tolerate the BiPAP. Overall, he has lost some weight. His BMI had been more than 31. He states he has lost 15-20 pounds. His last admission was in 12/2018. He was in his usual state of health until the day of presentation. He started to develop chest pain that is measured at 5/10 in severity. Otherwise, he denies any recent fever, night sweats or chills. Cardiac catheterization was earlier today. Following the procedure, he started developing increasing dyspnea and bronchospasm. Otherwise, denies any chest pain or productive cough. Denies any recent nausea, vomiting, diarrhea. PAST MEDICAL HISTORY: As mentioned above, hypertension, diabetes mellitus type 2, hyperlipidemia, osteoporosis, abdominal abscess, diverticulitis with rupture requiring laparotomy, depression, nephrolithiasis, compression fracture involving the L5, kyphoscoliosis related to osteoporosis, chronic back pain, morbid obesity and history of falls. PAST SURGICAL HISTORY: As mentioned above. [facility] [address] [place] [address] CONSULTATION Name: DONNY GARCIA FRANKLIN Room #: [address] [place] [address] IN M.R.#: [id number] Admission: 02/12/19 Attend Phys: Lauro Mandujano MD Discharge: Date of : 43 Report #: [id number] ALLERGIES: CODEINE, WHICH CAUSES RASH. PENICILLIN CAUSES WELTS. GABAPENTIN MAKES HIM INCOHERENT. TAZOBACTAM REACTIONS UNSPECIFIED. HOME MEDICATIONS: List reviewed. This include potassium supplements, Protonix 40 mg once a day, Lipitor 40 mg once a day, albuterol MDI 2 puffs p.r.n. and Stiolto 1 puff daily, OxyContin 10 mg p.o. q.12 hours, Naproxen 500 mg p.o. p.r.n., Demadex 20 mg every other day, azithromycin 250 mg once a day, Imdur 120 mg once a day. He is on chronic O2. FAMILY HISTORY: Notable for mother at the age of 92, father at the age of 56. Reasons unspecified. SOCIAL HISTORY: He is and retired. He has smoked, but quit many years ago. Denies any alcohol use. REVIEW OF SYSTEMS: As mentioned above, otherwise 10-point system review negative. PHYSICAL EXAMINATION: GENERAL: He is awake, alert, in moderate distress. He appears tachypneic. VITAL SIGNS: Temperature is 98.5 degrees Fahrenheit, pulse is 108, respiratory rate is 30, blood pressure is 108/61 mmHg, saturation 95%. HEENT: Normocephalic, atraumatic. NECK: Supple, without lymphadenopathy or thyromegaly. CHEST: Breath sounds are decreased bilaterally. Jqlv-xp-skyjzlxs bilateral wheezes. CARDIOVASCULAR: Normal S1, S2. No murmurs or gallop. There is no JVD. There is no carotid bruit. Pulses are 2+/4+ bilaterally. ABDOMEN: Mildly obese, soft, nontender, no organomegaly or masses felt. GENITOURINARY: Deferred. RECTAL: Deferred. EXTREMITIES: There is no edema, cyanosis or clubbing. LABORATORY DATA: Portable chest x-ray is clear. Electrolytes are unremarkable except for creatinine 1.2, albumin 3.1. WBC is 12,400, hemoglobin is 8.2, platelets are normal. IMPRESSION: 1. Progressive dyspnea, bronchospasm in this 74-year-old white male secondary to exacerbation of chronic obstructive pulmonary disease. 2. Chronic obstructive pulmonary disease/asthma overlap, severe impairment, FEV1 of 0.7 liters, 37% predicted, now with mild exacerbation. 3. Worsening intolerant to the use of noninvasive ventilation, likely contributing to chronic obstructive pulmonary disease exacerbation. 4. Unstable angina, coronary artery disease, status post cardiac [facility] [address] [place] [address] CONSULTATION Name: DONNY GARCIA Room #: 211-P ADM IN M.R.#: [id number] Admission: 02/12/19 Attend Phys: Lauro Mandujano MD Discharge: Date of : 43 Report #: [id number] catheterization, medical management. 5. Chronic kidney disease. 6. Acute on chronic diastolic heart failure, hypertension, chronic back pain, on chronic narcotics, is a problem. 7. Some degree of encephalopathy, the patient appears to be somewhat confused, weakness and debility, obesity with recent intentional weight loss. RECOMMENDATION: Would add corticosteroids, bronchodilators, wean O2 for saturation 90%. DVT and GI Prophylaxis recommended. We will try to encourage the treatment for sleep apnea once again once the patient is stable. Thank you for this consultation. <ELECTRONICALLY SIGNED> By: Yinka Noel MD 02/16/19 1847 1726 [id number] Yinka Noel MD /nt
[2019-02-16 19:39] VITALS: BP 121/62
--- NOTE | 2019-02-17 03:39 | NUR ---
ASSESSMENT DOCUMENTED.PT BEEN RESTING IN NO ACUTE DISTRESS.A/OX4.VSS WNL.ON O2 AT 3 LITERS PNC.DYSPNEA ON EXERTION.SLEPT ON RECYCLINER.PAIN MEDS GIVEN FOR BACK AND LOWER EXTREMITIES WITH RELIEF.PT DENIES ANY FURTHER CONCERNS .WILL CONT TO MONITOR PER POC.
[2019-02-17 04:10] VITALS: BP 132/59
[2019-02-17 05:33] LABS: CALCIUM 8.5 mg/dL (8.5-10.1); CREATININE 1.6 mg/dL (0.7-1.3); POTASSIUM 3.9 mmol/L (3.5-5.1)
[2019-02-17 05:54] LABS: HEMATOCRIT 24.1 % (42.0-52.0); MCH 28.1 pg (26.0-34.0); MCHC 33.3 g/dL (28.0-37.0); MCV 84.2 fL (80.0-100.0); RBC 2.86 mil/uL (4.50-6.00); RDW 15.6 % (10.5-14.5); WBC 8.2 thou/uL (4.0-11.0)
[2019-02-17 07:54] VITALS: BP 145/57
[2019-02-17 09:25] LABS: ABSOLUTE RETIC COUNT 0.0958 10^6/uL; OBSERVED RETIC COUNT 3.17 % (0.6-2.6)
[2019-02-17 09:50] LABS: FOLIC ACID 16.5 ng/mL (8.6-58.9); TSH 0.039 uIU/mL (0.358-3.740)
[2019-02-17 11:30] VITALS: BP 123/59
[2019-02-17 16:20] VITALS: BP 11/71
--- NOTE | 2019-02-17 16:49 | NUR ---
ASSESSMENT CHARTED. PT ALERT AND ORIENTED. VSS. RECEIVED PRN PAIN MED FOR LOWER BACK PAIN WITH PARTIAL RELIEF. UP IN THE CHAIR THIS SHIFT. HAD ONE LARGE BM THIS SHIFT. CHECKED FREQUENTLY AND NEEDS MET. WILL CONTINUE TO MONITOR.
--- NOTE | 2019-02-17 17:55 | NUR ---
Pt is not interested in rehab or snf stay. He would like to go directly home at dc but would be okay with hh referral. [facility] alerted to possible dc over the holiday wkend.
[2019-02-17 17:57] VITALS: BP 123/59
--- NOTE | 2019-02-18 04:10 | NUR ---
PATIENT ALERT AND ORIENTED X4. COOPERATIVE AND PLEASANT. SITTING IN MARKUS-CHAIR THROUGHOUT THE NIGHT. 02NC IN PLACE WITH 4L. SOME SOA WITH EXERTION. 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 VOIDING WILTON URINE VIA URINAL. THIS NURSE RECEIVED PATIENT AT APPROX 2300 FROM ANOTHER RN ON THIS FLOOR. BS 226 AT HS AND INSULIN GIVEN PER ORDER. POSITIVE OCCULT STOOL FROM AM SHIFT TODAY. WILL RECEIVE IRON IV X5 DAYS. POSSIBLE D/C ON WEDNESDAY. WILL MONITOR.
[2019-02-18 05:59] LABS: CALCIUM 8.7 mg/dL (8.5-10.1); CREATININE 1.5 mg/dL (0.7-1.3)
[2019-02-18 06:00] LABS: POTASSIUM 4.4 mmol/L (3.5-5.1)
[2019-02-18 06:10] VITALS: BP 150/64
[2019-02-18 06:25] LABS: HEMATOCRIT 25.3 % (42.0-52.0); HEMOGLOBIN 8.3 gm/dL (14.0-18.0); MCH 27.9 pg (26.0-34.0); MCHC 32.9 g/dL (28.0-37.0); MCV 84.7 fL (80.0-100.0); RBC 2.99 mil/uL (4.50-6.00); RDW 15.6 % (10.5-14.5); WBC 8.5 thou/uL (4.0-11.0)
[2019-02-18 07:58] VITALS: BP 138/56
[2019-02-18 08:11] LABS: HEMOGLOBIN 8.2 g/dL (13.0-17.7)
[2019-02-18 12:16] VITALS: BP 141/60
[2019-02-18 15:53] VITALS: BP 137/43
--- NOTE | 2019-02-18 17:10 | NUR ---
AAOX4. VSS. SR/ST PER TELE. MEDICATED FOR PAIN ORDERED. BG ELEVATED ON SOLUMEDROL, SS ORDERED. AT BEDSIDE. APPETITE BRISK. FREQUENT CHECKS; WILL CONTINUE TO MONITOR.
[2019-02-18 20:32] VITALS: BP 134/55
[2019-02-19 05:07] VITALS: BP 134/55; BP 150/62
[2019-02-19 05:20] LABS: HEMATOCRIT 24.6 % (42.0-52.0); HEMOGLOBIN 8.1 gm/dL (14.0-18.0); MCH 27.8 pg (26.0-34.0); MCHC 32.9 g/dL (28.0-37.0); MCV 84.5 fL (80.0-100.0); RBC 2.9 mil/uL (4.50-6.00); RDW 15.1 % (10.5-14.5); WBC 9.1 thou/uL (4.0-11.0)
[2019-02-19 05:35] LABS: CALCIUM 8.6 mg/dL (8.5-10.1); CREATININE 1.5 mg/dL (0.7-1.3); POTASSIUM 3.9 mmol/L (3.5-5.1)
--- NOTE | 2019-02-19 06:23 | NUR ---
NO CHANGES OVERNIGHT. PT A&O, AND SLEPT IN THE RECLINER. PT C/O EARLIER IN THE NIGHT AND WAS GIVEN OXYCONTIN AND OXYCODONE. PT HAS DENIED PAIN SINCE. PT REMAINS ON 4L O2 NC. VSS. WILL CONTINUE TO MONITOR.
[2019-02-19 07:30] VITALS: BP 141/62
[2019-02-19 12:30] VITALS: BP 106/81
[2019-02-19 15:28] VITALS: BP 123/52
[2019-02-19 19:51] VITALS: BP 123/46
[2019-02-19 20:41] VITALS: BP 150/54
--- NOTE | 2019-02-20 02:11 | NUR ---
ASSESSMENTS CHARTED. PATIENT DOES NOT SEE CLEARLY AND ACTIONS NEED TO BE EXPLAINED PRIOR TO PERFORMING ACTIVITY. PATIENT RESTING IN RECLINER WITH FEET UP DURING SHIFT. AMBULATED IN ROOM WITH POOR ENDURANCE. IN SINUS TACH DURING SHIFT. C/O PAIN IN RIGHT KNEE, SHOULDER AND BACK. ON SCHEDULED PAIN MEDS AND BREAKTHROUGH PAIN MEDS. FALL PRECAUTIONS IN PLACE.
[2019-02-20 05:02] VITALS: BP 128/56
[2019-02-20 05:27] LABS: HEMATOCRIT 25.1 % (42.0-52.0); HEMOGLOBIN 8.1 gm/dL (14.0-18.0); MCH 27.5 pg (26.0-34.0); MCHC 32.2 g/dL (28.0-37.0); MCV 85.4 fL (80.0-100.0); RBC 2.94 mil/uL (4.50-6.00); RDW 15.7 % (10.5-14.5)
[2019-02-20 05:42] LABS: CREATININE 1.4 mg/dL (0.7-1.3); POTASSIUM 4.3 mmol/L (3.5-5.1)
[2019-02-20 07:27] VITALS: BP 144/63
--- NOTE | 2019-02-20 10:55 | NUR ---
AAOX4. VERY [place] AND LEGALLY BLIND. MEDICATED FOR CHRONIC BACK PAIN ORDERED WITH GOOD EFFECT. IRON INFUSED ORDERED. DOZING IN BEDSIDE CHAIR. WILL CONTINUE TO FOLLOW.
[2019-02-20 11:39] VITALS: BP 111/61
[2019-02-20 16:23] VITALS: BP 137/65
[2019-02-20 20:23] VITALS: BP 143/60
[2019-02-21 03:47] VITALS: BP 124/54
--- NOTE | 2019-02-21 04:52 | NUR ---
ASSESSMENTS CHARTED. PATIENT RESTING IN CHAIR DURING SHIFT. HAD TWO BOWEL MOVEMENTS DURING SHIFT. C/O PAIN IN JOINTS AND SORE THROAT. ORDERED LOZENGERS. FALL PRECAUTIONS IN PLACE. PLAN OF CARE IS TO RETURN HOME TODAY WITH HOME HEALTH.
--- NOTE | 2019-02-21 07:15 | HC ---
[facility] [place] [address] CONSULTATION Name: DONNY GARCIA Room #: 211-P ADM IN M.R.#: [id number] Admission: 02/12/19 Attend Phys: Lauro Mandujano MD Discharge: Date of : 43 Report #: [id number] THIS REPORT FOR: //name// CC: David Morales MD DATE OF SERVICE: 02/17/2019 REASON FOR CONSULTATION: Anemia. HISTORY OF PRESENT ILLNESS: The patient is a very pleasant 74-year-old gentleman who was admitted back in December. At that time, he was found to be severely iron deficient with an iron of 21, TIBC 367, percent saturation 6 and ferritin of 23. I do not see Hemoccult. His urine really had no blood. He had described dark stools. The GI doctor has seen him, were considering future scope, but the patient had a recent drug-eluting stent and was placed on Plavix and since he did not have overt bleeding, I think we were leaning towards not scoping him at this time. The patient admits to only eating red meat once or twice per week. He has been on a proton pump inhibitor for quite some time. He does have a history of having anemia before and I think it is back when he had diverticulosis and had a partial colon resection and reanastomosis by Dr. Ojeda about 12 years ago. The patient recently admitted for shortness of breath and chest discomfort, had stents placed by Dr. Na burks. The patient has occasional headaches related to medications. No swallowing trouble, does have dry mouth. No new vision troubles. Does have trouble hearing. Does have macular degeneration. Does have trouble breathing and coughs quite a bit. No recent new ankle swelling. He had about, by the patient description, about 45-pound intentional weight loss. No recent fevers or chills. PAST MEDICAL HISTORY: Quite extensive and includes the recent coronary artery disease with drug-eluting stent placement, also COPD, obstructive sleep apnea, trial of CPAP, but poorly tolerated in the past. Also, history of hypertension, hyperlipidemia, chronic kidney disease, possible heart failure, arthritis, obesity, also some osteoporosis, skin cancers, arthritis, mood disorder, kidney stones, kyphoplasty, cataracts, I think he has had some knee surgery. FAMILY HISTORY: Father was an alcoholic. Mother lived to be age 90. I think there were 3 brothers and one sister, no specific health issues. He has 2 daughters, 1 son. No specific illnesses. [address] [address] CONSULTATION Name: DONNY GARCIA GORHAM Room #: [facility] IN M.R.#: [id number] Admission: 02/12/19 Attend Phys: Lauro Mandujano MD Discharge: Date of : 43 Report #: [id number] SOCIAL HISTORY: He is originally from [place], met his I think up in [place]. 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 He is a former smoker, stopped greater than one year ago. No significant alcohol, no street drugs. He and his do have a dog at home with some mixed Chihuahua and rat terrier. ALLERGIES: Medicines with troubles include a rash with CODEINE, bumps with his PIPERACILLIN, TAZOBACTAM cause unspecific difficulties, GABAPENTIN cause mental status changes. PHYSICAL EXAMINATION: GENERAL: The patient appears his stated age. He was woken up on a Med/Surg floor. Mood, he is pleasant, was coughing quite a bit until his lungs cleared. VITAL SIGNS: ____, temperature 97.6 orally. HEENT: Face is symmetrical. LUNGS: Slightly distant, have a few soft rhonchi that finally clear after coughing quite a bit. HEART: Regular rate. LYMPHATICS: No enlarged lymph nodes in the supraclavicular, cervical, axillary or inguinal region. ABDOMEN: Quite obese. EXTREMITIES: Without clubbing, cyanosis. There is some edema. LABORATORY REVIEW: Notable for the low iron back on 12/29/2018. The patient did have 3 transfusions, one on 12/29/2018, then one on 02/13/2019, one on 02/15/2019. Creatinine recently 1.6. Hemoglobin recently had been 7.2, bumped with transfusion and then also down to 7.0, has bumped up to 8, currently 8 today. White count has been in the normal range of 8.2 to 10-12.4 range, platelets have been in the 293 range, lately. Note that her differential has included some abnormal cells including ____ back in 2002, it may have been reactive in nature. Kidney functions I mentioned had a recent creatinine of 1.6. Liver functions normal. Total bili not done recently, but had been normal. UA did not show significant red cells, do not see Hemoccult test. CURRENT MEDICATIONS IN THE HOSPITAL: Include diltiazem 180 daily, digoxin 0.125 daily, isosorbide 60 daily, furosemide 40 daily IV, potassium chloride 20 mEq daily, aspirin 81 daily, atorvastatin 40 mg daily, clopidogrel 75 mg daily, azithromycin 250 daily, ipratropium and albuterol respiratory therapy, pantoprazole 40 daily, methylprednisolone 40 q.i.d., insulin on a sliding scale, oxycodone controlled 10 b.i.d., Zoloft 100 at bedtime, Percocet p.r.n., fentanyl p.r.n., Zofran p.r.n. ASSESSMENT AND PLAN: 1. Iron deficiency anemia, most likely this is a combination of poor dietary input, a leak and poor absorption. Note that his last colonoscopy was in 2006, [facility] [address] [place] [address] CONSULTATION Name: DONNY GARCIA SUDHEER Room #: [address] [place] [address] [place] [facility].#: [id number] Admission: 02/12/19 Attend Phys: Lauro Manudjano MD Discharge: Date of : 43 Report #: [id number] the patient has been seen by GI ____ should consider scoping at some point when his cardiac is more stable. We will discontinue oral iron and give the patient IV iron. We will also check erythropoietin as the patient has chronic kidney disease and also check vitamin B12, folate and TSH and peripheral smear. I doubt the metamyelocytes mean much, the fact that he has normal white count and platelet count would argue against a severe bone marrow deficiency, but if things do not improve, we might need to consider bone marrow biopsy. 2. Chronic kidney disease. We will check an EPO level to see if it is inappropriately low. 3. Coronary artery disease with recent stents, on Plavix and aspirin. 4. Hypertension and cardiac issues, diltiazem and a number of other drugs. 5. Hyperlipidemia, atorvastatin. 6. Chronic obstructive pulmonary disease, oxygen and aerosol agents. 7. Obstructive sleep apnea, was intolerant of CPAP/BiPAP in the past. 8. Oxygen dependency, provide oxygen. 9. Congestive heart failure issues. Has diuretics and digoxin on board. 10. Obesity has intentionally lost 40 pounds. Encouraged continued weight loss. 11. Macular degeneration per others. 12. Hardness of hearing per others. We will follow with you. <ELECTRONICALLY SIGNED> By: Spenser Asher MD 02/21/19 0715 [id number] Spenser Asher MD /nt
[2019-02-21 07:27] VITALS: BP 130/57
[2019-02-21] MEDS ORDERED: CARDIZEM CD 18180 M3 PO (07:33)
[2019-02-21] MEDS ORDERED: DIGOXIN125 MCG PO (07:33)
--- NOTE | 2019-02-21 10:18 | NUR ---
patient to dc home he prefers [facility] at home. dc discharge planner to fax and alert [facility].
[2019-02-21 12:00] VITALS: BP 138/59
--- NOTE | 2019-02-21 12:50 | NUR ---
ASSUMED CARE AT SHIFT CHANGE, PATIENT ALERT, ORIENTED, AND FORGETFUL. ASSESMENT CHARTED, AND VSS. PATIENT STATED THATS HE WANTS TO STAY ANOTHER DAY TO GET STRONGER, WILL INFORM DR CAMPO AND WILL CONTINUE WITH POC.
--- NOTE | 2019-02-21 12:55 | NUR ---
FAXED CLINICAL UPDATE AND DC ORDERS/SUMMARY TO [facility] SPOKE WITH XU IN INTAKE AND SHE RECEIVED DC ORDERS AND WILL NOTIFY PT TIME OF VISITS.
[2019-02-21 12:56] VITALS: BP 123/59
--- NOTE | 2019-02-21 15:55 | NUR ---
patient to dc home today. Dr Mandujano wants patient to work with PT once more before home. If patient not ready for home then possible stay one more day to work with therapy. Offered skilled post acute care and patient doesnt want skilled at [facility] has been there before and not good experience. [facility] accepting of home with HH.
[2019-02-21 16:19] VITALS: BP 124/46
[2019-02-21 20:30] VITALS: BP 130/49
--- NOTE | 2019-02-22 04:31 | NUR ---
ASSESSMENTS CHARTED. PATIENT IN RECLINER DURING SHIFT. GOT SCRIPT FOR VOLTAREN GEL FOR HIS RIGHT SHOULDER. FEET ELEVATED TO HELP REDUCE SWELLING. ON OXYGEN DURING SHIFT. PLAN OF CARE IS TO WORK WITH PT PRIOR TO BEING DISCHARGED TODAY.
[2019-02-22 05:15] VITALS: BP 122/49
[2019-02-22 08:00] VITALS: BP 148/68
[2019-02-22 09:59] VITALS: BP 123/59
[2019-02-22 12:01] VITALS: BP 138/59
[2019-02-22 13:46] VITALS: BP 123/59
--- NOTE | 2019-02-22 14:56 | NUR ---
ASSUMED CARE AT SHIFT CHANGE, ALERT AND ORIENTED X3 AND FORGETFUL. DENIES ANY DISCOMFORT AND VSS, SR-ST ON THE MONITOR. REMIANS ON 4L NASAL CONUALA. DISCHARGE AND MEDICATION INSRUCTIONS GIVEN TO PATIENT AND SPOUSE AND THEY VERBALIZED UNDERSTANDING.
--- NOTE | 2019-02-22 15:30 | NUR ---
patient to dc home today. Plan home with [facility]. Updated [facility] of [facility]. they have rec orders from yesterday no further needs.
== END 2019-02-22 15:48 | disposition home health service (06) | DRG 246 ==
LOC: ER 05:23 → 2N 05:58 → EROBS 05:58 → ICU 05:58 → 2N 06:33 → ICU 02-13 11:41 → 2N 02-15 19:11 → ENTRNSPT 02-22 14:57 → EDTRNSPTSTS 02-22 15:02 → 2N 02-22 15:48
PROVIDERS: Emergency Medicine; Internal Medicine Cardiovascular Disease; Internal Medicine Hematology & Oncology; Nurse Practitioner; ADMIT Family Medicine
PROC: 4A023N7 Measurement of Cardiac Sampling and Pressure, Left Heart, Percutaneous Approach (ICD-10-PCS; principal; 2019-02-13)
PROC: 027236Z Dilation of Coronary Artery, Three Arteries with Three Drug-eluting Intraluminal Devices, Percutaneous Approach (ICD-10-PCS; principal; 2019-02-13)
PROC: B2111ZZ Fluoroscopy of Multiple Coronary Arteries using Low Osmolar Contrast (ICD-10-PCS; principal; 2019-02-13)
PROC: 30233N1 Transfusion of Nonautologous Red Blood Cells into Peripheral Vein, Percutaneous Approach (ICD-10-PCS; principal; 2019-02-13)
DX: I25.110 Atherosclerotic heart disease of native coronary artery with unstable angina pectoris (principal); I50.43 Acute on chronic combined systolic (congestive) and diastolic (congestive) heart failure; J96.21 Acute and chronic respiratory failure with hypoxia; J96.22 Acute and chronic respiratory failure with hypercapnia; J44.1 Chronic obstructive pulmonary disease with (acute) exacerbation; I13.0 Hypertensive heart and chronic kidney disease with heart failure and stage 1 through stage 4 chronic kidney disease, or unspecified chronic kidney disease; G93.40 Encephalopathy, unspecified; J45.901 Unspecified asthma with (acute) exacerbation; E78.5 Hyperlipidemia, unspecified; M81.0 Age-related osteoporosis without current pathological fracture; M19.90 Unspecified osteoarthritis, unspecified site; F32.9 Major depressive disorder, single episode, unspecified; G89.29 Other chronic pain; M54.9 Dorsalgia, unspecified; J45.909 Unspecified asthma, uncomplicated; E66.01 Morbid (severe) obesity due to excess calories; N18.9 Chronic kidney disease, unspecified; K57.90 Diverticulosis of intestine, part unspecified, without perforation or abscess without bleeding; H35.30 Unspecified macular degeneration; G47.33 Obstructive sleep apnea (adult) (pediatric); D50.9 Iron deficiency anemia, unspecified; I45.10 Unspecified right bundle-branch block; Z96.653 Presence of artificial knee joint, bilateral; I34.0 Nonrheumatic mitral (valve) insufficiency; E11.22 Type 2 diabetes mellitus with diabetic chronic kidney disease; R13.10 Dysphagia, unspecified; K21.9 Gastro-esophageal reflux disease without esophagitis; R00.0 Tachycardia, unspecified; I48.91 Unspecified atrial fibrillation; B37.9 Candidiasis, unspecified; Z68.31 Body mass index [BMI] 31.0-31.9, adult; Z91.81 History of falling; Z99.81 Dependence on supplemental oxygen; Z87.891 Personal history of nicotine dependence; Z79.01 Long term (current) use of anticoagulants; Z90.49 Acquired absence of other specified parts of digestive tract; Z95.5 Presence of coronary angioplasty implant and graft; Z79.82 Long term (current) use of aspirin; Z79.899 Other long term (current) drug therapy; Z85.828 Personal history of other malignant neoplasm of skin; Z87.01 Personal history of pneumonia (recurrent); Z87.442 Personal history of urinary calculi; Z98.42 Cataract extraction status, left eye; Z98.41 Cataract extraction status, right eye; Z88.6 Allergy status to analgesic agent; Z88.8 Allergy status to other drugs, medicaments and biological substances; Z81.1 Family history of alcohol abuse and dependence; Z88.0 Allergy status to penicillin; Z93.3 Colostomy status; Z90.89 Acquired absence of other organs; Z98.52 Vasectomy status; I25.2 Old myocardial infarction
CPT/HCPCS: 10078; 10081; 83006; 85076

== ENCOUNTER 2019-02-25 02:43 | Inpatient (IN) | payer OTHER ==
[2019-02-25] VITALS (8 sets, daily range): BP systolic 114–153; BP diastolic 49–66
[~2019-02-25] VITALS: Ht 162.6 cm; Wt 76.6 kg
--- NOTE | ~2019-02-25 | EMS ---
[address] [address] EMS Patient Care Report Name: DONNY GARCIA Room #: 215-P ADM IN M.R.#: [id number] Admission: 02/25/19 ������������������ Attend Phys: Lauro Mandujano MD Discharge: ������������������ Date of : 43 Report #: [id number] THIS REPORT FOR: //name// Report Transmitted: 02/25/2019 06:51 EMS Care Summary [facility] MED-ACT Incident [id number] @ 02/25/2019 02:03 Incident Location [address] [place] [address] Patient DONNY GARCIA Male, 74 Years 1945 Patient Address [address] [place] [address] Patient History Congestive Heart Failure (CHF),Chronic Obstructive Pulmonary Disease (COPD),Hypertension, Patient Allergies Codeine, Patient Medications Voltaren, Albuterol, Atorvastatin, Oxygen, Oxycodone, Prednisone, Sertraline, Naproxen, Torsemide, Chief Complaint Chest pain Disposition Transported No Lights/[place] Dispatch Reason Chest Pain (Non-Traumatic) Transported To [facility] Narrative The pt. woke up about 30 minutes INDIVIDUAL PENSION CONSULTANT of EMS with a dull pressure in the center of his chest. He was discharged Wednesday02/22/2019 after receiving [address] [address] EMS Patient Care Report Name: DONNY GARCIA Room #: 215-P ADM IN .[place].#: [id number] Admission: 02/25/19 ������������������ Attend Phys: Lauro Mandujano MD Discharge: ������������������ Date of : 43 Report #: [id number] stents. He denies other symptoms such as dyspnea, weakness, nausea/vomiting. There were no reports of any recent falls, fever, or pulmonary illnesses. He took 324 mg of baby aspirin per dispatch protocol and administered 3 prescribed nitroglycerine INDIVIDUAL PENSION CONSULTANT without relief. No other complaints noted. Arrived to find the pt. sitting in a recliner. Refer to the exam section for physical findings. Initial 12L ECG flagged an inferior CO. An attempt was made to transmit the information but the transmission did not succeed. The ST elevation was questionable in the inferior leads. Elevation was also questionable in the anterior and lateral leads. Subsequent 12 lead did not flag an AMI. The only reasonable way to get the pt. out of the house was to to have him use his motorized stair chair. An attempt was made to have the pt. step over to the chair. He was able to stand up from the recliner but he stated that he was too weak to walk. He was seated back into the recliner while a plan to remove the pt. was made. While waiting the pt. had a bradycardic episode that caused him to lose consciousness. He was immediately placed on the floor. He regained consciousness about 30 seconds later. t(x)- monitoring, IV, 12L transmission was attempted, therapy pads placed, 3 providers were present in the back during transport. Outcome- During transport the pt. remained stable and alert. He also stated that his chest pain had subsided. No other changes were noted in the pt's condition upon arrival at [place]. Initial Vitals @02:41P: 101,BP: 111/62,SpO2: 99, @02:37P: 101,BP: 142/109,SpO2: 100, @02:16P: 104,BP: 112/77, @02:24P: 117, @02:19MI Suspected: true @02:17P: 104,R: 16,BP: 122/76,Pain: 4/10,GCS: 15,SpO2: 96,Revised Trauma: 12, @02:32P: 100,R: 16,BP: 125/77,GCS: 15,Glucose: 99,SpO2: 99,Revised Trauma: 12,CO Suspected: false Assessments @02:20MENTAL:No Abnormalities,SKIN:HEENT:LUNG SOUNDS:General: No Abnormalities,ABDOMEN:General: No Abnormalities,PELVIS//GI:EXTREMITIES:Right Arm: Other,PULSE:NEURO: Impression Chest Pain / Discomfort Procedures @02:3212-Lead ECGResponse: UnchangedSucceeded@02:1912-Lead ECGResponse: UnchangedSucceeded@02:33Saline Lock 8cc (20 ga) Site: [place] [address] EMS Patient Care Report Name: DONNY GARCIA SUDHEER Room #: 215-P ADM IN M.R.#: [id number] Admission: 02/25/19 ������������������ Attend Phys: Lauro Mandujano MD Discharge: ������������������ Date of : 43 Report #: [id number] Antecubital-RightResponse: UnchangedSucceeded Timeline 02:03,Call Received 02:03,Psap Call 02:03,Dispatched 02:04,En Route 02:12,On Scene 02:16,At Patient 02:16,BP: 112/77 M,PULSE: 104,RR: R,SPO2: Ox,ETCO2: ,BG: ,PAIN: ,GCS: , 02:17,BP: 122/76 M,PULSE: 104,RR: 16 R,SPO2: 96 Ox,ETCO2: ,BG: ,PAIN: 4,GCS: 15, 02:19,12-Lead ECG,Response: UnchangedSucceeded, 02:19,BP: / M,PULSE: ,RR: R,SPO2: Ox,ETCO2: ,BG: ,PAIN: ,GCS: , 02:24,BP: / M,PULSE: 117,RR: R,SPO2: Ox,ETCO2: ,BG: ,PAIN: ,GCS: , 02:32,12-Lead ECG,Response: UnchangedSucceeded, 02:32,BP: 125/77 M,PULSE: 100,RR: 16 R,SPO2: 99 Ox,ETCO2: ,B,PAIN: ,GCS: 15, 02:33,Saline Lock 8cc 20 ga Site: Antecubital-Right,Response: UnchangedSucceeded, 02:34,Depart Scene 02:37,BP: 142/109 M,PULSE: 101,RR: R,SPO2: 100 Ox,ETCO2: ,BG: ,PAIN: ,GCS: , 02:40,At Destination 02:41,BP: 111/62 M,PULSE: 101,RR: R,SPO2: 99 Ox,ETCO2: ,BG: ,PAIN: ,GCS: , 02:58,Call Closed Disclaimer v1.1 Copyright 2019 [employer] This EMS Care Summary contains data elements from the applicable legal record (which may be displayed differently). It is designed to provide pertinent information for the following purposes: continuity of care, clinical quality, and state data reporting. The complete legal record is available to ED staff and administrators of the receiving hospital in [employer]'s Patient Tracker. All data is provided "as is."
[~2019-02-25 02:43] MED LIST changes: +ASPIR 8181 MG PO; +CARDIZEM CD 18180 M3 PO; +DIGOXIN125 MCG PO; +IRON325 PO; +PLAVIX 75 MG TA75 M1 PO; +SERTRALINE HCL100 MG PO
[2019-02-25 03:23] LABS: HEMATOCRIT 26.9 % (42.0-52.0); HEMOGLOBIN 8.7 gm/dL (14.0-18.0); MCH 28.4 pg (26.0-34.0); MCHC 32.3 g/dL (28.0-37.0); MCV 87.9 fL (80.0-100.0); PLATELET COUNT 198 thou/uL (150-400); RBC 3.06 mil/uL (4.50-6.00); RDW 16.4 % (10.5-14.5); WBC 10.4 thou/uL (4.0-11.0)
[2019-02-25 03:27] LABS: CALCIUM 8.4 mg/dL (8.5-10.1); CREATININE 1.3 mg/dL (0.7-1.3); POTASSIUM 3.7 mmol/L (3.5-5.1)
[2019-02-25 03:37] LABS: ALBUMIN 2.7 g/dL (3.4-5.0); DIRECT BILIRUBIN 0.1 mg/dL (<0.1-0.3); TOTAL BILIRUBIN 0.4 mg/dL (<0.1-1.0); TOTAL PROTEIN 5.4 g/dL (6.4-8.2); TROPONIN-I 0.06 ng/mL (<0.06)
[2019-02-25 04:07] LABS: ABSOLUTE NEUTROPHILS 8.5 thou/uL (1.4-8.2); ANISOCYTOSIS 1+; METAMYELOCYTES 1 %; MYELOCYTES 1 %
[2019-02-25 04:37] LABS: URINE BILIRUBIN 1+ (Negative); URINE BLOOD 3+ (Negative); URINE CLARITY SL CLOUDY; URINE COLOR YELLOW; URINE GLUCOSE-RANDOM* NEGATIVE (Negative); URINE KETONES NEGATIVE (Negative); URINE LEUKOCYTES-REFLEX NEGATIVE (Negative); URINE NITRITE-REFLEX NEGATIVE (Negative); URINE PROTEIN (DIPSTICK) 1+ (Negative); URINE SPECIFIC GRAVITY 1.025 (1.005-1.035); URINE UROBILINOGEN 0.2 E.U./dl (0.2-1.0)
[2019-02-25 04:40] LABS: ICTOTEST (BILI CONFIRMATORY) Positive (Negative)
[2019-02-25 04:43] LABS: AMORPHOUS URATES Moderate /LPF (None Seen); BACTERIA-REFLEX 1-9 Few /HPF (None Seen); FINE GRANULAR CASTS 0-3 Few /LPF (None Seen); MUCUS 0-3 Light strn/LPF (None Seen); SQUAMOUS 0-3 Few /LPF (0-3); URINE RBC >20 Many /HPF (0-2); URINE WBC-REFLEX 0-5 Rare /HPF (0-5)
[2019-02-25 04:44] LABS: URIC ACID CRYSTALS 4-10 Moderate /LPF (None Seen)
--- NOTE | 2019-02-25 04:51 | NUR ---
GAVE REPORT TO GEN NESS
[2019-02-25] MEDS ORDERED: LANOXIN125 MCG PO (06:05)
[2019-02-25] MEDS ORDERED: CARDIZEM CD 18180 M3 PO (06:06)
--- NOTE | 2019-02-25 07:47 | NUR ---
PT WAS AN ER ADMIT AT 0510 WHO COMES TO THE ER WITH CHEST PAIN. PT IS COMES TO THE UNIT WITH SPOUSE. ADMISSION ASSESSMENT AND EDUCATION COMPLETED. CONSENTS FORM SIGNED BY SPOUSE. PT IS STABLE. NO SIGN OF DISTRESS NOTED IN PT. PT IS SLEEPY ANG AND ADMISSION IS COMPLETED WITH SPOUSE. VITAL SIGNS STABLE. FALL PRECAUTION IN PLACE. NO FURTHER NEEDS REQUESTED AT THIS TIME.
--- NOTE | 2019-02-25 11:15 | EKG ---
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 : 1945 Requested By: Kandice Oseguera Order Number: [id number] MD: David Crane Measurements Intervals [place] Rate: 100 P: 56 [place]: 179 QRS: -84 QRSD: 140 T: 80 QT: 367 QTc: 474 Interpretive Statements Sinus tachycardia RBBB and LAFB Compared to ECG 02/14/2019 07:11:54 No significant changes Electronically Signed On 02-25-2019 11:15:14 CDT by David Crane [email or web address] ��������������������������������������������� <ELECTRONICALLY SIGNED> ���������������������������������������� By: David Crane MD ��������������������������������������������� 02/25/19 1115 [id number] David Crane MD /SUKHI
--- NOTE | 2019-02-25 18:15 | NUR ---
ASSUMED CARE AT SHIFT CHANGE, ALERT AND ORIENTED X4 AND FORGETFUL. PATIENT C/O SOB, O2 AST 99-100% AND DR MARKHAM NOTIFIED. BREATHING TX ORDERED AND WAS GIVEN TX INDICATED. VSS AND AFEBRILE. SR-ST WITH BBB, AND WILL CONTINUE WITH POC.
[2019-02-26 00:45] VITALS: BP 98/52
[2019-02-26 01:44] VITALS: BP 123/56
--- NOTE | 2019-02-26 04:12 | NUR ---
RECEIVED PT'S CARE AT 1935; PT. ON CHAIR; SLEEPING; SLEEP INTERRUMPTED DURING SHIFT CHANGE; SPOUSE AT THE BED SIDE; C/O BACK PAIN; DURING ASSESSMENT C/O BACK PAIN; 10/28; SCHEDULED PAIN MEDICATION GIVEN; EDUCATED ABOUT CALLING BEFORE STANDING FROM CHAIR; ST. UNDERSTANDING; ST. WANTS TO REST ON CHAIR; SCDs APPLIED; NO C/O CP; EDUCATED ABOUT CALLING IMMEDIATELY IF CP PRESENTS; ST. UNDERSTANDING; HS MEDICATION GIVEN; THROUGH THE NIGHT PT. ABLE TO REST WITH EYES CLOSED; MONITORING; ASSESSMENT CHARGED; FOLLOWING POC; WILL PASS ON REPORT.
[2019-02-26 04:45] VITALS: BP 116/53; BP 144/64
--- NOTE | 2019-02-26 08:55 | HC ---
[facility] [place] [address] CONSULTATION Name: DONNY GARCIA Room #: 215-P [facility] IN M.R.#: [id number] Admission: 02/25/19 ������������������ Attend Phys: Lauro Mandujano MD Discharge: ������������������ Date of : 43 Report #: [id number] THIS REPORT FOR: //name// CC: Lauro Mandujano DATE OF SERVICE: 02/25/2019 CARDIOLOGY CONSULTATION INDICATION: Chest pain. HISTORY OF PRESENT ILLNESS: This is a 74-year-old gentleman with a history of COPD, on chronic oxygen therapy, CAD with recent stent placement, diastolic heart failure, chronic kidney disease, anemia of chronic disease, status post blood transfusion and sleep apnea, presenting with chest pain. He had been recently hospitalized for unstable angina, undergoing placement of a stent to the left main artery and ostial left circumflex artery. The proximal LAD had a severe occlusion, with calcification. Angioplasty was performed, however, a stent was not able to be delivered secondary to the calcium. The plan was to consider a staged angioplasty involving rotational atherectomy. During that hospitalization, he had issues with heart failure, respiratory failure and anemia. He did receive blood transfusions. He was evaluated by Hematology, started on IV iron. He had been stable at home, but developed significant chest discomfort yesterday at rest. He felt generalized weakness and dyspnea. The troponin level 0.6, he denies any nausea or fevers. PAST MEDICAL HISTORY: COPD with oxygen dependence. Status post stent to the left main artery and left circumflex. Has a severe occlusion of the proximal LAD with calcification. Has a severe occlusion of the ostial RCA. History of diastolic heart failure and anemia. ALLERGIES: INCLUDE CODEINE, PIPERACILLIN, GABAPENTIN. MEDICATIONS: At home include Protonix, Lipitor 40 mg, albuterol inhaler, torsemide 20 mg daily, digoxin, Imdur 60 mg daily, diltiazem 180 mg daily, Plavix, aspirin, and iron. SOCIAL HISTORY: Negative for tobacco use. FAMILY HISTORY: Negative for premature CAD. REVIEW OF SYSTEMS: A full 10-point review of systems performed. Only the pertinent positives and negatives are described in the HPI. PHYSICAL EXAMINATION: VITAL SIGNS: Blood pressure is 140/80, heart rate is [address] [facility] [address] [place] [address] CONSULTATION Name: DONNY GARCIA [place] Room #: [address] [place] [address] [place] [facility].#: [id number] Admission: 02/25/19 ������������������ Attend Phys: Lauro Mandujano MD Discharge: ������������������ Date of : 43 Report #: [id number] GENERAL APPEARANCE: This is an elderly appearing male, in no acute distress. HEENT: Normocephalic, atraumatic. Oral mucosa moist. NECK: Supple. LUNGS: Diminished breath sounds at the bases. CARDIAC: Distant heart sounds, S1, S2 positive. ABDOMEN: Soft, nontender. EXTREMITIES: Trace edema, no cyanosis. ECG reveals sinus rhythm, bifascicular block. LABORATORY VALUES: White count is 10.4, hemoglobin is 8.7, creatinine is 1.3. Troponin 0.06. ASSESSMENT AND PLAN: 1. Unstable angina, with recent stent placement to the left main. The cause of his chest pain is probably cardiac, had recent percutaneous coronary intervention procedure. There is a severe proximal left anterior descending occlusion, consider rotational atherectomy and stent placement. Continue medications including aspirin and Plavix at this time. 2. Chronic obstructive pulmonary disease, continue with oxygen, as per Pulmonary. 3. Anemia, hemoglobin is stable at this time. 4. Diastolic dysfunction, continue with diuretic therapy. ��������������������������������������������� <ELECTRONICALLY SIGNED> ���������������������������������������� By: David Crane MD ��������������������������������������������� 02/26/19 0855 [id number] 0004 David Crane MD /nt
[2019-02-26 11:21] VITALS: BP 107/46
--- NOTE | 2019-02-26 17:06 | NUR ---
ASSUMED CARE AT SHIFT CHANGE, ALERT AND ORIENTED X4. PATIENT SLEEPING MOST OF THE DAY, FAMILY AT BEDSIDE AND SHE SPOKE WITH DR CAMPO ABOUT HER FATHER'S CARE. PATIENT TOOK ALL 6 HOURS TO TAKE MEDICATION. C/O BACK PAIN AND MEDICATED WITH SCHEDULLED PAIN MEDS. WILL CONTINUE WITH POC.
[2019-02-26 19:59] VITALS: BP 101/48
[2019-02-27] VITALS (10 sets, daily range): BP systolic 104–127; BP diastolic 47–62
--- NOTE | 2019-02-27 04:53 | NUR ---
ASSUMED PT CARE AT 1900 WITH NO SIGN OF DISTRESS NOTED. PT IS SITTING IN CHAIR. NO FAMILY AT BEDSIDE. PT IS ALERT AND ORIENTED. RATES PAIN AT A 5. FALL PRECAUTION IN PLACE. ASSESSMENT COMPLETED AND DOCUMENTED. SCHEDULED MEDS ADMINISTERED TO PT. NO SIGN OF DISTRESS NOTED. CONITNUE TO MONITOR PATINET. DENIES ANY FURTHER NEEDS AT THIS TIME.
[2019-02-27 05:22] LABS: HEMATOCRIT 26.2 % (42.0-52.0); HEMOGLOBIN 8.4 gm/dL (14.0-18.0); MCH 28.4 pg (26.0-34.0); MCHC 31.9 g/dL (28.0-37.0); RBC 2.95 mil/uL (4.50-6.00); RDW 16.6 % (10.5-14.5); WBC 8.9 thou/uL (4.0-11.0)
[2019-02-27 05:47] LABS: CALCIUM 8.4 mg/dL (8.5-10.1); CREATININE 1.3 mg/dL (0.7-1.3); POTASSIUM 3.5 mmol/L (3.5-5.1)
--- NOTE | 2019-02-27 15:13 | NUR ---
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 Patient dc home Feb 22/2019 with HH care via [facility]. patient readmits with CP. Patient lives with spouse in home with . He has stair glide to second floor. He uses home oxygen via [facility] patient usu at 4 liters. PVT duty 2 days a week. Patient has been at [facility] in past and would not want to return. 5N in process of evaluation they will follow post cath to determine if candidate for 5N.
--- NOTE | 2019-02-27 16:55 | NUR ---
ASSUMED CARE AT SHIFT CHANGE, ALERT AND ORIENTED X4. VSS, AND SR WITH BBB.FAMILY AT BEDSIDE ALL DAY. PATIENT BACK FROM EYE SURGEON, LT GRION SITE DRY WITH SMALL HEMATOMA, FREQUANT VS STARTED AND REPORT GIVEN MARYAM TO CONTINUE WITH PATIENT CARE.
--- NOTE | 2019-02-27 17:12 | CATHLAB ---
[facility] [place] [address] INVASIVE PROCEDURE REPORT Name: DONNY GARCIA Room #: 215-P [facility] IN ..#: [id number] ������������� Admission: 02/25/19 ������������� Attend Phys: Lauro Mandujano, Discharge: ��� ������������� ��� Date of : 41 Date of Service: 02/27/19 1712 �� Report #: [id number] �������� ��������������������������������������������[id number] THIS REPORT FOR: //name// APPROVED REPORT Study performed: 02/27/2019 13:21:00 Patient Details Patient Status: In-Patient Room #: The patient is a 74 year-old male Event Personnel David Crane 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 A PINNACLE 6FR Sheath #[id number] sheath was inserted into the LFA^. Coronary angiography was performed using coronary diagnostic catheters. Closure device was deployed with a 6 Fr MYNX CONTROL 6F/7F #[id number]. The patient tolerated the procedure well and there were no complications associated with the procedure. There was no hematoma. Intraoperative Conscious Sedation Sedation start time: 15.26 Case end Time: 16.28 Versed 1 mg Fluoro Time: 22.50 minutes [facility] [address] [place] [address] INVASIVE PROCEDURE REPORT Name: DONNY GARCIA SUDHEER Room #: 215-P [facility] IN [facility].#: [id number] ������������� Admission: 02/25/19 ������������� Attend Phys: Lauro Mandujano, Discharge: ��� ������������� ��� Date of : 41 Date of Service: 02/27/19 1712 �� Report #: [id number] �������� ��������������������������������������������[id number] Dose: DAP 32313.00 cGycm2 22.5 mGy Contrast Type and Amount: Visipaque 135 ml Diagnostic Cath LAD A recent cardiac catheterization revealed a severe occlusion in the proximal LAD with calcification. Balloon angioplasty was performed, unsuccessful due to bursting of 2 balloons. Most likely due to the calcification. Unable to deliver noncompliant balloons. The patient now returns with unstable angina. Hemodynamics The aortic pressure is 103/50 mmHg with a mean of 70 mmHg. PCI Technique Lesion Percutaneous coronary intervention was performed on the proximal left anterior descending artery segment. The lesion stenosis prior to intervention was 80% with BERKLEY 3 flow. A ROTABLATOR ROTOWIRE EDIE .009 #[id number] Guide Catheter was used to engage the ostium. A VISTA 6FR XB 3.5 #[id number] Interventional Guidewire was used to cross the lesion. BALLOON DILATION A Balloon catheter CATH ROTALINK PLUS 1.50 135CM #[id number] was inserted and inflated up to bhavesh for seconds. A Rota wire was placed into the distal LAD. A 1.5 bur, rotational atherectomy was performed with 3 passes across the proximal LAD stenosis. 3.0x12 sprinter -/13 STENT DEPLOYMENT A drug-eluting stent RESOLUTE LUCIUS RX 3.0 X 15 #[id number] was inserted and inflated up to 18.00atm for 10seconds. POST STENT DEPLOYMENT BALLOON DILATION A Balloon catheter Euphora NC RX 3.25 x 12 #[id number] was inserted and inflated up to 18.00atm for 17seconds. Additional Inflation: 20.00atm for 8seconds. Final angiography reveals 0 % stenosis with BERKLEY 3 flow. Conclusion 1. Successful PCI involving rotational atherectomy with a 1.5 mm bur and placement of a drug-eluting stent into the proximal LAD stenosis. [address] [address] INVASIVE PROCEDURE REPORT Name: DONNY GARCIA Room #: 215-P [facility] IN ..#: [id number] ������������� Admission: 02/25/19 ������������� Attend Phys: Lauro Mandujano, Discharge: ��� ������������� ��� Date of : 41 Date of Service: 02/27/19 1712 �� Report #: [id number] �������� ��������������������������������������������[id number] 2. Recommend dual antiplatelet therapy and aggressive risk factor management. ��������������������������������������������� <ELECTRONICALLY SIGNED> ���������������������������������������� By: David Crane MD ��������������������������������������������� 02/27/191711 11 11 David Crane MD /INF
--- NOTE | 2019-02-27 17:18 | NUR ---
PT RETURNED POST CATH APPROX 1630. THIS NURSE ASSUMED CARE AT THIS TIME. PT ALERT AND ORIENTED X4. DENIES PAIN AND SOA. VSS. LEFT GROIN IS C/D/I. POST CATH PROTOCOL INITIATED. FAMILY AT BEDSIDE AND DENY QUESTIONS OR CONCERNS AT THIS TIME. NO DISTRESS NOTED.
--- NOTE | 2019-02-27 18:22 | NUR ---
PT DOES NOT WANT DINNER AT THIS TIME. TRAY KEPT AT BEDSIDE AND PT AWARE HE CAN CALL TO HAVE REHEATED.
[2019-02-28 02:30] VITALS: BP 132/62
--- NOTE | 2019-02-28 04:18 | NUR ---
ASSUMED PT CARE AT 1900 WITH NO SIGN OF DISTRESS NOTED. PT IS NOTED TO BE SLEEPING. PT WAS ON BEDREST TILL 2100 AFTER CARIDAC SITE PROCEDURE. GROIN SITE IS INTACT. NO BLEEDING OR HEMATOMA OBSERVED. ASSESSMENT COMPLETED AND CHARTED. SCHEDULED MEDS AMDINISTERED TO PT. NO SIGN OF DISTRESS NOTED. PAIN MED ADMINISTERED TO PT REQUESTED. PT DENIES ANY NEEDS AT THIS TIME. FALL PRECUATION IN PLACE.
[2019-02-28 05:55] LABS: HEMATOCRIT 25.2 % (42.0-52.0); MCH 28.2 pg (26.0-34.0); MCHC 31.7 g/dL (28.0-37.0); RBC 2.83 mil/uL (4.50-6.00); RDW 17.6 % (10.5-14.5); WBC 12.9 thou/uL (4.0-11.0)
[2019-02-28 06:22] LABS: CREATININE 1.2 mg/dL (0.7-1.3)
--- NOTE | 2019-02-28 07:55 | EKG ---
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 : 1945 Requested By: Dvaid Crane Order Number: [id number] MD: Franklin Morrison Measurements Intervals [place] Rate: 95 P: 40 AR: 171 QRS: -101 QRSD: 145 T: 66 QT: 401 QTc: 504 Interpretive Statements Sinus rhythm RBBB and LAFB Compared to ECG 02/25/2019 02:47:49 Sinus tachycardia no longer present Electronically Signed On 02-28-2019 7:55:11 CDT by Franklin Morrison [email or web address] ��������������������������������������������� <ELECTRONICALLY SIGNED> ���������������������������������������� By: Franklin Morrison MD, [facility] ��������������������������������������������� 02/28/19 0755 49 49 Franklin Morrison MD, [facility] /EPI
--- NOTE | 2019-02-28 08:19 | EKG ---
[place] [address] [address] [facility] [place] [address] ELECTROCARDIOGRAM REPORT Name: DONNY GARCIA Room #: 215-P ADM IN M.R.#: [id number] ������������������ Admission: 02/25/19 ������������������ Attend Phys: Lauro Mandujano MD Discharge: ������������������ Date of : 41 Report #: [id number] ����������������������������������������������������������������� [id number] THIS REPORT FOR: //name// [facility] Test Date: 2019-02-28 Test Time: 07:30:32 Pat Name: DONNY GARCIA Department: Room: 215 P Gender: M Manager Paid: VENECIA : 1945 Requested By: David Crane Order Number: [id number] MD: Franklin Morrison Measurements Intervals [place] Rate: 96 P: 25 WY: 177 QRS: -102 QRSD: 145 T: 70 QT: 374 QTc: 473 Interpretive Statements Sinus rhythm Probable left atrial enlargement RBBB and LAFB Compared to ECG 02/25/2019 02:47:49 Sinus tachycardia no longer present Electronically Signed On 02-28-2019 8:19:33 CDT by Franklin Morrison [email or web address] ��������������������������������������������� <ELECTRONICALLY SIGNED> ���������������������������������������� By: Franklin Morrison MD, [facility] ��������������������������������������������� 02/28/19818 9 9 Franklin Morrison MD, [facility] /EPI
[2019-02-28 08:33] VITALS: BP 123/56
[2019-02-28 12:23] VITALS: BP 121/54
--- NOTE | 2019-02-28 15:58 | NUR ---
5N following to determine if candidate for acute rehab.
--- NOTE | 2019-02-28 16:30 | NUR ---
PATIENT SEEN BY DEON VÁZQUEZ NP WITH DR. SMITH. NO 5N BED AVAILABILITY. SUGGESTED THAT INSURANCE EXECUTIVE LOOK INTO OTHER IN PATIENT REHAB OPTIONS. THANK YOU FOR THIS REFERRAL.
--- NOTE | 2019-02-28 17:00 | NUR ---
5N REPORTS NO BED AVAIL FOR PATIENT THEY ARE FULL. PATIENT ON WAIT LIST. DISCUSSED ACUTE REHAB OPTIONS [facility], [facility], [facility]. AT THIS TIME REFERRAL TO [facility]. WANTS TO DISCUSS WITH DR CAMPO.
--- NOTE | 2019-02-28 17:32 | NUR ---
FAXED REFERRAL TO [facility] RECEIVED CONFIRMATION WILL F/U WITH FACILITY IN THE AM. DCP TO FOLLOW.
--- NOTE | 2019-02-28 18:42 | NUR ---
ASSUMED CARE AT SHIFT CHANGE, ALERT AND ORIENTED X4. VSS AND SR WITH BBB. PATIENT SLEPT ON AND OFF ALL DAY, MEDICATED FOR BACK PAIN NEEDED. TAKEN DOWN IR FOR PSEUDOANURYSM THROMBIN INJECTION, TO LT GRION SITE. LT GRION SITE IS SOFT WITH BRUISES AND PATIENT DENIES ANY DISCOMFORT TO THE SITE. FAMILY AT BEDSIDE AND WILL CONTINUE WITH POC.
[2019-02-28 19:58] VITALS: BP 116/61
[2019-02-28 20:00] VITALS: BP 116/61
[2019-03-01] VITALS (8 sets, daily range): BP systolic 100–145; BP diastolic 37–63
--- NOTE | 2019-03-01 03:13 | NUR ---
RECEIVED PT'S CARE AT 1900; PT. ON BED; RESTING WITH EYES CLOSED; SLEEP INTERRUPTED TO ASSESS L. SIDE GROIN AREA; AT SHIFT CHANGE L. GROIN AREA SHOWED BRUISING; PUFFINESS; BANDAID ON; C/O PAIN AT TOUCH; ST. TENDERNESS; DURING ASSESSMENT C/O BACK PAIN; HS MEDICATION GIVEN; PEDALIS PULSES PRESENTS; THROUGH THE NIGHT PT. RESTING WITH EYES CLOSED; AT MIDNIGHT NO CHANGE ON L. GROIN AREA; VS WNL; MONITORING; ASSESSMENT CHARGED; FOLLOWING POC; WILL PASS ON REPORT.
[2019-03-01 05:44] LABS: HEMATOCRIT 22.9 % (42.0-52.0); HEMOGLOBIN 7.3 gm/dL (14.0-18.0); MCH 28.2 pg (26.0-34.0); MCHC 31.8 g/dL (28.0-37.0); MCV 88.7 fL (80.0-100.0); RBC 2.58 mil/uL (4.50-6.00); RDW 18.1 % (10.5-14.5); WBC 10.8 thou/uL (4.0-11.0)
[2019-03-01 05:55] LABS: CALCIUM 8.3 mg/dL (8.5-10.1); CREATININE 1.3 mg/dL (0.7-1.3); POTASSIUM 3.8 mmol/L (3.5-5.1)
[2019-03-01] MEDS ORDERED: PERCOCET PO (08:58)
--- NOTE | 2019-03-01 12:26 | NUR ---
[facility] evaled patient and met with patient and . They are accepting of patient. and patient feel patient needs one more day prior to dc. Phys agreeable to dc in am to [facility] updated [facility].
--- NOTE | 2019-03-01 12:35 | NUR ---
ASSUMED CARE AT [facility] CHANGE, ALERT AND ORIENTED X4. VSS AND SR ON THE MONITOR. AND UP IN CHAIR. MEDICATED FOR BACK PAIN NEEDED. EDWARDO VISITED WITH PATINET AND , AND REQUASTED TO KEEP PATIENT IN THE HOSPITAL FOR ONE MORE NIGHT. PATIENT WILL SATY ANOTHER NIGHT. AND WILL CONTINUE WITH POC.
[2019-03-02] VITALS (7 sets, daily range): BP systolic 110–142; BP diastolic 42–85
--- NOTE | 2019-03-02 05:34 | NUR ---
RECEIVED PT'S CARE AT 1915; PT. ON CHAIR; SLEEP INTERRUPTED; AOX4; NO C/O PAIN; DURING ASSESSMENT C/O BACK PAIN AT MOVEMENT; HS MEDICATION GIVEN; ST. WOULD LIKE TO SLEEP ON CHAIR; VS WNL; SCDs APPLIED; REQUESTED DIFFERENT NC DUE TO BEHIND EAR IRRITATION; GAUZE APPLIED BEHIND EARS; REQUESTED NC TO RT; PT. ABLE TO SLEEP THROUGH THE NIGHT WITH EYES CLOSED; MONITORING; ASSESSMENT CHARGED; FOLLOWING POC; WILL PASS ON REPORT.
[2019-03-02 09:30] LABS: HEMATOCRIT 22.1 % (42.0-52.0); HEMOGLOBIN 7.2 gm/dL (14.0-18.0); MCH 28.6 pg (26.0-34.0); MCHC 32.5 g/dL (28.0-37.0); RBC 2.51 mil/uL (4.50-6.00); RDW 17.6 % (10.5-14.5); WBC 10.3 thou/uL (4.0-11.0)
[2019-03-02 09:37] LABS: CALCIUM 8.8 mg/dL (8.5-10.1); CREATININE 1.5 mg/dL (0.7-1.3)
--- NOTE | 2019-03-02 15:43 | NUR ---
Dc to [facility] on hold d/t chest pain and low hgb. Pt getting 1 unit of PRBC and lasix today. [facility] updated. They will have a bed for the pt tomorrow if he is stable for dc. aware and here visiting this morning.
[2019-03-02 17:21] LABS: HEMATOCRIT 24.8 % (42.0-52.0); HEMOGLOBIN 8.1 gm/dL (14.0-18.0); MCH 28.6 pg (26.0-34.0); MCHC 32.6 g/dL (28.0-37.0); MCV 87.8 fL (80.0-100.0); RBC 2.83 mil/uL (4.50-6.00); RDW 16.7 % (10.5-14.5); WBC 7.5 thou/uL (4.0-11.0)
--- NOTE | 2019-03-02 19:42 | NUR ---
ASSUMED CARE OF PATIENT AT 0700. ASSESSMENTS DOCUMENTED. PATIENT C/O SOA AND REQUIRES FREQUEST REST BREAKS. PATIENT UNABLE TO MOVE MORE THAN 2 FEET AT A TIME USING THE WALKER WITHOUT USING A BREAK AND ONLY ABLE TO STAND FOR 2-3 MINUTES WITHOUT SITTING DOWN. ORTHOSTATIC VITALS OBTAINED AND DOCUMENTED IN [facility]. PATIENT RECEIVED ONE UNIT OF PACKED RBC'S. TOLERATED TRANSFUSION WITHOUT ANY SIDE EFFECTS. LEFT AC IV INFILTRATED DURING TRANSFUSION AND CONTINUED IN NEW RIGHT CHEST SITE IV. LBM: 02/24/19, ACTIVE BS, POSITIVE FLATUS AND DENIES DISCOMFORT. REPEAT CBC OBTAINED. PATIENT TO CONTINUE WITH POC.
[2019-03-03 03:43] VITALS: BP 85/43
[2019-03-03 04:01] VITALS: BP 141/62
[2019-03-03 04:03] VITALS: BP 151/69
--- NOTE | 2019-03-03 04:13 | NUR ---
RECEIVED PT'S CARE AT 1935; PT. ON BED; AWAKE; SPOUSE AT THE BED SIDE; NO C/O PAIN; DURING ASSESSMENT ST. BACK PAIN; 07/31; EDUCATED ABOUT NOTIFIED IMMEDIATELY IF FEELING SOB; EDUCATED ABOUT HAVING HS PILLS WITH YOGURT OR PUDDIN DUE TO COUGHIN EARLIER AFTER HAVING PILLS; ST. UNDERSTANDING; PT. COUGHING DURING SHIFT CHANGE & ASSESSMENT; BEFORE GIVEN HS MEDICATIONS SMALL AMOUNT OF YOGURT GIVEN; PT. ABLE TO SWALLOW; MEDICATION GIVEN; THROUGH THE NIGHT ABLE TO REST WITH EYES CLOSED; SBP RE-ASSESSMENT AT 0400; WNL; NO C/O HEADACHE; NO C/O SOB; REMAINED THE IMPORTANCE OF TURNING GIVEN SOME REST TO BUTTOCKS; ST. UNDERSTANDING; SYNUS RYTHM THROUGH THE NIGHT; CHECK CHARTING; ASSESSMENT CHARGED; FOLLOWING POC; WILL PASS ON REPORT.
[2019-03-03 05:27] LABS: HEMATOCRIT 24.9 % (42.0-52.0); HEMOGLOBIN 8.2 gm/dL (14.0-18.0); MCH 28.8 pg (26.0-34.0); MCHC 32.8 g/dL (28.0-37.0); MCV 87.8 fL (80.0-100.0); PLATELET COUNT 153 thou/uL (150-400); RBC 2.84 mil/uL (4.50-6.00)
[2019-03-03 08:32] LABS: ABSOLUTE NEUTROPHILS 5.7 thou/uL (1.4-8.2)
[2019-03-03 08:33] LABS: ANISOCYTOSIS 1+
[2019-03-03 08:51] VITALS: BP 133/56
--- NOTE | 2019-03-03 10:34 | NUR ---
Pt dcing to [facility] today. They have arranged for a w/c van with o2 btwn 1 and 2pm. Pt's dtr is at bedside and updated. Care team updated. Pt's dtr is letting her mom know as she will be bringing in a change of clothing for him. Chart copy to be updated. Nursing to call report.
[2019-03-03 11:59] VITALS: BP 139/64
--- NOTE | 2019-03-03 12:58 | NUR ---
GAVE REPORT TO NARCISO AT [facility], IV AND TELE WILL BE REMOVED, PT'S SPOUSE AT BEDSIDE. PT WILL BE TAKEN OUT VIA FACILITY TRANSPORT, ALL SUPPLIES W/PT AND CHART FOLDER IN [place] [facility]
--- NOTE | 2019-03-09 11:29 | HC ---
[facility] [place] [address] CONSULTATION Name: DONNY GARCIA SUDHEER Room #: 215-P [facility] IN M.R.#: [id number] Admission: 02/25/19 ������������������ Attend Phys: Lauro Mandujano MD Discharge: 03/03/19 ������������������ Date of : 43 Report #: [id number] THIS REPORT FOR: //name// CC: Lauro Mandujano DATE OF SERVICE: 02/27/2019 HISTORY OF PRESENT ILLNESS: The patient is 74-year-old white male, who was admitted with chest pain and shortness of breath. He had recently been hospitalized here at [facility], 02/12/2019 through 02/20/2019. He had a recent cardiac stent, which he thinks helped his symptoms overall. He does have premorbid O2 dependent COPD. He had been home for a couple of days, but was readmitted with worsening chest pain. He does have severe paroxysmal left anterior descending occlusion and the plan is to undergo a rotational atherectomy with stent placement. He has been continued on aspirin and Plavix. We are seeing him in rehabilitation medicine consultation. PAST MEDICAL HISTORY: Includes diabetes mellitus, hypertension, heart disease, lung disease, and renal insufficiency. PAST SURGICAL HISTORY: Includes a prior total knee replacement, shoulder surgery, ruptured abscess in the colon requiring colostomy, which was reversed, total knee replacement, and vasectomy. MEDICATIONS: Please see the full medication listing. ALLERGIES: CODEINE, PIPERACILLIN, TAZOBACTAM, NEURONTIN. HABITS: Former tobacco abuse, quit greater than a year ago. No history of alcohol abuse. SOCIAL HISTORY: Lives with his , multilevel home; however, he can avoid all stairs with the use stair glides. He had been able to ambulate a short distance approximately 10 feet around the house using a walker. Slept in a recliner. assisted with some bathing and dressing. They had a caregiver there, Tuesdays and . He had been at a lower level when he was discharged home this last time. He was able to ambulate; however, about 12 feet with standby assistance with a front-wheeled walker when discharged on 02/21/2019. REVIEW OF SYSTEMS: No current complaints of chest pain, some shortness of breath, although he thinks it is a little better as far as with activity. He has some right shoulder discomfort, which has been chronic, although can intermittently be worse. PHYSICAL EXAMINATION: GENERAL: He is a pleasant 74-year-old male, in no obvious distress[place] [address] CONSULTATION Name: DONNY GARCIA Room #: 215-[facility] IN [facility].#: [id number] Admission: 02/25/19 ������������������ Attend Phys: Lauro Mandujano MD Discharge: 03/03/19 ������������������ Date of : 43 Report #: [id number] of hearing, has decreased vision. He notes he does have a history of macular degeneration. He has had issues with cataracts as well. VITAL SIGNS: Temperature 97.9, pulse 93, respirations 24, blood pressure 107/52. HEENT: Facies appeared symmetric. EXTREMITIES: He has some decreased range of motion of the right shoulder and abduction, would probably grade him at about 80-90 degrees. Strength is probably grade 3+/5, left upper extremity is more of 3+, maybe 4-/5. He is of rather short stature. Lower extremities, no focal calf swelling. Strength is probably a grade 3+/5. DTRs are trace to 1. ASSESSMENT: A 74-year-old white male with the following problem list: 1. Medical complex with generalized debilitation. 2. Coronary artery disease with recurrent chest pain now. Plan is to undergo rollerblading and stenting. 3. Chronic obstructive pulmonary disease, O2 dependent. 4. History of congestive heart failure. 5. Chronic kidney disease. 6. Obstructive sleep apnea. 7. Macular degeneration. 8. Prior medical history as delineated above. PLAN: He is to receive the procedure by Cardiology later on today. We will continue to follow along with you regarding his rehab therapy needs. ��������������������������������������������� <ELECTRONICALLY SIGNED> ���������������������������������������� By: Flo Palma MD ��������������������������������������������� 03/09/19 1129 1304 2227 Flo Palma MD /nt
== END 2019-03-03 14:13 | DRG 246 ==
LOC: ER 02:43 → 2N 04:33 → EROBS 04:33 → 2N 04:57
PROVIDERS: Emergency Medicine; Internal Medicine Cardiovascular Disease; Nurse Practitioner; ADMIT Family Medicine
PROC: 027034Z Dilation of Coronary Artery, One Artery with Drug-eluting Intraluminal Device, Percutaneous Approach (ICD-10-PCS; principal; 2019-02-27)
PROC: 3E053GC Introduction of Other Therapeutic Substance into Peripheral Artery, Percutaneous Approach (ICD-10-PCS; principal; 2019-02-27)
PROC: 02C03ZZ Extirpation of Matter from Coronary Artery, One Artery, Percutaneous Approach (ICD-10-PCS; principal; 2019-02-27)
PROC: 4A023N7 Measurement of Cardiac Sampling and Pressure, Left Heart, Percutaneous Approach (ICD-10-PCS; principal; 2019-02-27)
PROC: B211YZZ Fluoroscopy of Multiple Coronary Arteries using Other Contrast (ICD-10-PCS; principal; 2019-02-27)
PROC: 30233N1 Transfusion of Nonautologous Red Blood Cells into Peripheral Vein, Percutaneous Approach (ICD-10-PCS; 2019-03-02)
DX: I25.110 Atherosclerotic heart disease of native coronary artery with unstable angina pectoris (principal); E43 Unspecified severe protein-calorie malnutrition; I50.30 Unspecified diastolic (congestive) heart failure; I13.0 Hypertensive heart and chronic kidney disease with heart failure and stage 1 through stage 4 chronic kidney disease, or unspecified chronic kidney disease; E78.5 Hyperlipidemia, unspecified; M81.0 Age-related osteoporosis without current pathological fracture; J44.9 Chronic obstructive pulmonary disease, unspecified; M19.90 Unspecified osteoarthritis, unspecified site; F32.9 Major depressive disorder, single episode, unspecified; G89.29 Other chronic pain; M54.9 Dorsalgia, unspecified; N18.9 Chronic kidney disease, unspecified; D64.9 Anemia, unspecified; Z96.659 Presence of unspecified artificial knee joint; F41.9 Anxiety disorder, unspecified; I71.4 Abdominal aortic aneurysm, without rupture; H35.30 Unspecified macular degeneration; G47.33 Obstructive sleep apnea (adult) (pediatric); Z93.3 Colostomy status; Z87.442 Personal history of urinary calculi; Z88.6 Allergy status to analgesic agent; Z88.8 Allergy status to other drugs, medicaments and biological substances; Z98.52 Vasectomy status; Z87.891 Personal history of nicotine dependence; Z99.81 Dependence on supplemental oxygen; Z81.4 Family history of other substance abuse and dependence
CPT/HCPCS: 10081

== ENCOUNTER 2019-03-27 17:29 | Inpatient (IN) | payer OTHER ==
[~2019-03-27] VITALS: Ht 162.6 cm; Wt 68.0 kg
--- NOTE | ~2019-03-27 | EMS ---
[address] [address] EMS Patient Care Report Name: donny garcia Room #: 213-P ADM IN M.R.#: [id number] Admission: 03/27/19 Attend Phys: Lauro Mandujano MD Discharge: Date of : 43 Report #: [id number] THIS REPORT FOR: //name// Report Transmitted: 03/27/2019 22:33 EMS Care Summary [facility] MED-ACT Incident [id number] @ 03/27/2019 16:45 Incident Location [address] [place] [address] Patient DONNY GARCIA Male, 74 Years 1945 Patient Address [address] [place] [address] Patient History Congestive Heart Failure (CHF),Chronic Obstructive Pulmonary Disease (COPD),Hypertension, Patient Allergies Codeine, Patient Medications Albuterol, Naproxen, Torsemide, Oxygen, Oxycodone, Voltaren, Atorvastatin, Sertraline, Prednisone, Nitroglycerin, Chief Complaint "I have chest pain" Disposition Transported No Lights/[place] Dispatch Reason Chest Pain (Non-Traumatic) Transported To [facility] Narrative 74yom found sitting upright in recliner at home, alert and oriented, and appearing comfortable. Pt was in care of Molly MELENDEZ and . Pt stated approx [address] [address] EMS Patient Care Report Name: donny garcia Room #: 213-P ADM IN M.Lesli#: [id number] Admission: 03/27/19 Attend Phys: Lauro Mandujano MD Discharge: Date of : 43 Report #: [id number] "45 minutes ago" he developed "sudden chest pressure" with pain rating at "8/10," which went unchanged after he took "3 Nitroglycerin" tablets. Pt activated 911 because his pain was unchanged after self care. Pt reported that the pain occurred while he was at rest sitting in his chair. Pt denied change in pain/pressure with palpation, deep inspiration, or movement. Pt denied pain radiating, denied shortness of breath, N/V/D, denied diaphoresis, but did state he has felt "weak" all day. Pt reported today he went to his PCP due to the weakness and was discharged without diagnosis. Pt reported having a "heart attack" approx 1 month ago where he had splints placed at [facility]. Pt stated this pain was "similar" to that episode. Pt was unsure of any significant changes to his post heart attack ECG. ECG was obtained on scene which appear to show a Sinus Tach rhythm with RBBB. EMS monitor noted "Acute Inferior MS," but there was minimal changes to ST in III, aVF. EMS informed [facility] of findings and faxed 12 Lead to ER prior to departure of scene. Pt was able to stand and rotate to wheelchair which was utilized to move pt outside front door of residence to awaiting cot in the driveway. Pt was secured with straps x3 and moved to ambulance for further evaluation and treatment. IV was established on second attempt prior to departure. Pt informed EMS his pain was not 0/10 upon departure. Hospital notified with pt information only. Pt remained alert and oriented throughout EMS care. Upon arrival to ER, pt alert and oriented, remaining pain free and reports no complaint. Pt care was transferred to ER staff without incident. Initial Vitals @17:13P: 105,BP: 141/79,SpO2: 98, @17:20P: 106,Pain: 0/10,SpO2: 98,MS Suspected: false @17:25P: 105,R: 16,BP: 123/59,Pain: 0/10,GCS: 15,SpO2: 98,Revised Trauma: 12, @16:59P: 100,R: 16,BP: 152/73,Pain: 8/10,GCS: 15,SpO2: 98,Revised Trauma: 12,MS Suspected: false @16:56P: 102,R: 16,BP: 144/69,Pain: 8/10,GCS: 15,SpO2: 97,Revised Trauma: 12,MS Suspected: false Assessments @17:00MENTAL:Person Oriented,Time Oriented,Place Oriented,Event Oriented,SKIN:HEENT:Head/Face: No Abnormalities,LUNG SOUNDS:General: No Abnormalities,ABDOMEN:General: No Abnormalities,PELVIS//GI:No Abnormalities,EXTREMITIES:Left Arm: No Abnormalities,Right Arm: No Abnormalities,Left Leg: No Abnormalities,Right Leg: No Abnormalities,PULSE:Radial: 2+ Normal,NEURO:No Abnormalities, Impression Chest Pain / Discomfort [facility] [address] [place] [address] EMS Patient Care Report Name: donny garcia Room #: 213-P ADM IN M.R.#: [id number] Admission: 03/27/19 Attend Phys: Lauro Mandujano MD Discharge: Date of : 41 Report #: [id number] Procedures @17:2012-Lead ECGResponse: UnchangedSucceeded@16:5912-Lead ECGResponse: UnchangedSucceeded@17:13Saline Lock 0cc (20 ga) Site: Antecubital-RightResponse: UnchangedFailed@17:15Saline Lock 10cc (20 ga) Site: Antecubital-RightResponse: UnchangedSucceeded@PTAAspirin - 324 Milligrams (mg) - OralResponse: Unchanged Timeline DIE SIZER,Aspirin - 324 Milligrams (mg) - Oral,Response: Unchanged 16:44,Call Received 16:44,Psap Call 16:45,Dispatched 16:46,En Route 16:55,On Scene 16:56,At Patient 16:56,BP: 144/69 M,PULSE: 102,RR: 16 R,SPO2: 97 Ox,ETCO2: ,BG: ,PAIN: 8,GCS: 15, 16:59,12-Lead ECG,Response: UnchangedSucceeded, 16:59,BP: 152/73 M,PULSE: 100,RR: 16 R,SPO2: 98 Ox,ETCO2: ,BG: ,PAIN: 8,GCS: 15, 17:13,Saline Lock 0cc 20 ga Site: Antecubital-Right,Response: UnchangedFailed, 17:13,BP: 141/79 M,PULSE: 105,RR: R,SPO2: 98 Ox,ETCO2: ,BG: ,PAIN: ,GCS: , 17:15,Saline Lock 10cc 20 ga Site: Antecubital-Right,Response: UnchangedSucceeded, 17:16,Depart Scene 17:20,12-Lead ECG,Response: UnchangedSucceeded, 17:20,BP: / M,PULSE: 106,RR: R,SPO2: 98 Ox,ETCO2: ,BG: ,PAIN: 0,GCS: , 17:24,At Destination 17:25,BP: 123/59 M,PULSE: 105,RR: 16 R,SPO2: 98 Ox,ETCO2: ,BG: ,PAIN: 0,GCS: 15, 17:53,Call Closed Disclaimer v1.1 Copyright 2019 [employer] This EMS Care Summary contains data elements from the applicable legal record (which may be displayed differently). It is designed to provide pertinent information for the following purposes: continuity of care, clinical quality, and state data reporting. The complete legal record is available to ED staff and administrators of the receiving hospital in [employer]'s Patient Tracker. All data is provided "as is."
[~2019-03-27 17:29] MED LIST changes: +LANOXIN125 MCG PO
[2019-03-27 17:30] VITALS: BP 139/68
[2019-03-27 18:03] LABS: ABSOLUTE NEUTROPHILS 8.4 thou/uL (1.4-8.2); BASOPHILS 0.4 % (0.0-2.0); EOSINOPHILS 0.7 % (0.0-3.0); HEMATOCRIT 28.7 % (42.0-52.0); HEMOGLOBIN 9.3 gm/dL (14.0-18.0); LYMPHOCYTES 4.1 % (24.0-44.0); MCH 29.4 pg (26.0-34.0); MCHC 32.4 g/dL (28.0-37.0); MCV 90.8 fL (80.0-100.0); MONOCYTES 2.4 % (1.0-8.0); PLATELET COUNT 304 thou/uL (150-400); POLYS 92.4 % (36.0-66.0); RBC 3.16 mil/uL (4.50-6.00); RDW 18.3 % (10.5-14.5); WBC 9.1 thou/uL (4.0-11.0)
[2019-03-27 18:13] LABS: ANION GAP 10 mmol/L (7-16); BUN 6 mg/dL (7-18); CALCIUM 8.6 mg/dL (8.5-10.1); CHLORIDE 102 mmol/L (98-107); CO2 27 mmol/L (21-32); CREATININE 1.1 mg/dL (0.7-1.3); GLUCOSE 184 mg/dL (74-106); POTASSIUM 3.6 mmol/L (3.5-5.1); SODIUM 139 mmol/L (136-145)
[2019-03-27 18:17] LABS: ALBUMIN 2.7 g/dL (3.4-5.0); DIRECT BILIRUBIN 0.1 mg/dL (<0.1-0.3); SGOT 22 U/L (15-37); SGPT 17 U/L (30-65); TOTAL BILIRUBIN 0.3 mg/dL (<0.1-1.0); TROPONIN-I <0.06 ng/mL (<0.06)
[2019-03-27 18:22] LABS: APTT 26.3 Seconds (24.5-32.8); PROTIME 10.2 Seconds (9.3-11.4)
[2019-03-27] MEDS ORDERED: ZPAK PO ×2 (20:02→20:04)
[2019-03-27 20:57] VITALS: BP 131/65
[2019-03-27 21:27] VITALS: BP 139/65
[2019-03-27 22:30] VITALS: BP 126/62
[2019-03-28] VITALS (7 sets, daily range): BP systolic 107–150; BP diastolic 53–71
--- NOTE | 2019-03-28 08:00 | EKG ---
[address] [employer] [address] ELECTROCARDIOGRAM REPORT Name: manny dejesus Room #: 213-P ADM IN M.R.#: [id number] Admission: 03/27/19 Attend Phys: Lauro Mandujano MD Discharge: Date of : 41 Report #: [id number] THIS REPORT FOR: //name// [facility] ED Test Date: 2019-03-27 Test Time: 17:33:47 Pat Name: manny dejesus Department: Room: 213 Gender: M Respiratory Director: SHAILA : 1945 Requested By: Kandice Oseguera Order Number: [id number] MD: Franklin Morrison Measurements Intervals Daphne Rate: 103 P: 35 AL: 176 QRS: -91 QRSD: 148 T: 79 QT: 380 QTc: 498 Interpretive Statements Sinus tachycardia RBBB and LAFB Compared to ECG 02/28/2019 07:30:32 no significant change was found Electronically Signed On 03-28-2019 8:00:17 CDT by Franklin Morrison [email or web address] <ELECTRONICALLY SIGNED> By: Franklin Morrison MD, [facility] 03/28/19 [phone] Franklin Morrison MD, [facility] /EPI
--- NOTE | 2019-03-28 10:37 | NUR ---
met with patient who is A/Ox4 admits with CP. Patient with recent dc 03/03/19 to [facility]. He reports he was there approx a week, he reports the team came to his room and reported they do not have a program for him. Patient reports there were times when he did not do therapy and stomach issues. Patient dc home and rec HH via [facility] and also [facility]. Patient has home oxygen via [facility]. He has pvt dty 2x a week to assist . He lives in independent home with . Patient to dc home with HH care and cont private dty. Notified HH and Pallative care patient admitted to hospital. Cont to follow for dc planning.
--- NOTE | 2019-03-28 17:08 | NUR ---
FAXED REFERRAL TO [facility] SPOKE WITH RUBEN IN INTAKE SHE RECEIVED REFERRAL AND WILL REVIEW. DP TO FOLLOW.
--- NOTE | 2019-03-28 19:42 | NUR ---
ASSUMED CARE AT SHIFT CHANGE, ALERT AND ORIENTED X4. DENIES ANY CP, MEDICATED FOR LOWER BACK, NECK AND RT SHOULDER PAIN. VSS AND AFEBRILE. WILL CONTINUE WITH POC.
[2019-03-29 05:05] VITALS: BP 124/56
--- NOTE | 2019-03-29 05:13 | NUR ---
ASSUMED PT CARE AT 1900. VSS. PT A&OX4. COMPLAINED OF GENERALIZED PAIN, SCHEDULED OXYCOTIN GIVEN. GENERALIZED EDEMA, REMAINS ON 3L NC. PT IS STABLE, TROP TRENDNG DOWN, WILL CONTINUE TO MONITOR PER POC.
[2019-03-29] MEDS ORDERED: METOPROLOL SUCC25 M1 PO (07:41)
[2019-03-29 08:16] VITALS: BP 106/61
--- NOTE | 2019-03-29 10:18 | NUR ---
FAXED DC ORDERS/SUMMARY TO [facility] SPOKE WITH RUBEN IN ADM SHE RECEIVED DC ORDERS. [facility] SPOKE WITH MARTI SHE RECEIVED DC ORDERS AND WILL NOTIFY PT TIME OF VISITS.
[2019-03-29 12:17] VITALS: BP 143/71
[2019-03-29 12:36] VITALS: BP 97/46
--- NOTE | 2019-03-29 13:18 | NUR ---
patient to dc home. Sp with [facility] Andree who reports she sp with [facility] Andree and they both bill ins for HH care. Andree with pallative care reports they will be adding therapy for patient in the home. Updated patient and . aware of dc today and brought oxygen for trip home. They both discussed prev stay at [facility]. Report patient could not participate fully with therapy and he was likely dc from [facility] too soon. He rec blood transfusions at [facility] and at ok from facility they reported to patient "they dont have a program to fit his needs." Patient to dc home today with [facility] program.
--- NOTE | 2019-03-29 15:47 | NUR ---
ASSUMED CARE AT SHIFT CHANGE, ALERT AND ORIENTED X4 BUT FORGETFUL. ASSESMENT CHARTED. VSS, AND SR ON THE MONITOR. DISCHARGE AND MEDICATION INSTRUCTIONS GIVEN TO PATIENT AND SPOUSE AND PATIENT DISCHARGED HOME.
[2019-04-27] MEDS ORDERED: PERCOCET PO ×2 (13:27→13:30)
[2019-04-27] MEDS ORDERED: PERCOCET 5-3251 EACH PO ×2 (13:27→13:30)
[2019-04-27] MEDS ORDERED: LIPITOR40 MG PO (15:02)
[2019-04-27] MEDS ORDERED: PROAIR HFA8.5 GM INH (15:03)
[2019-04-27] MEDS ORDERED: PROTONIX40 M2 PO (15:04)
[2019-04-27] MEDS ORDERED: POTASSIUM20 PO (15:05)
[2019-04-27] MEDS ORDERED: STIOLTO RESPIMAT4 GM INH (15:06)
[2019-05-01] MEDS ORDERED: PERCOCET 5-3251 EACH PO ×2 (11:47→14:03)
[2019-05-01] MEDS ORDERED: PERCOCET PO ×2 (11:47→14:03)
== END 2019-03-29 15:55 | disposition hospice, home (50) | DRG 280 ==
LOC: ER 17:29 → EROBS 20:43 → 2N 20:43 → ENTRNSPT 03-29 15:42 → 2N 03-29 15:55
PROVIDERS: Emergency Medicine; ADMIT Family Medicine
PROC: 3E0234Z Introduction of Serum, Toxoid and Vaccine into Muscle, Percutaneous Approach (ICD-10-PCS; principal; 2019-03-28)
DX: I21.4 Non-ST elevation (NSTEMI) myocardial infarction (principal); J96.90 Respiratory failure, unspecified, unspecified whether with hypoxia or hypercapnia; I50.32 Chronic diastolic (congestive) heart failure; I13.0 Hypertensive heart and chronic kidney disease with heart failure and stage 1 through stage 4 chronic kidney disease, or unspecified chronic kidney disease; J44.9 Chronic obstructive pulmonary disease, unspecified; E78.5 Hyperlipidemia, unspecified; M81.0 Age-related osteoporosis without current pathological fracture; M19.90 Unspecified osteoarthritis, unspecified site; F32.9 Major depressive disorder, single episode, unspecified; G89.29 Other chronic pain; M54.9 Dorsalgia, unspecified; J45.909 Unspecified asthma, uncomplicated; J06.9 Acute upper respiratory infection, unspecified; E11.22 Type 2 diabetes mellitus with diabetic chronic kidney disease; R79.89 Other specified abnormal findings of blood chemistry; I25.119 Atherosclerotic heart disease of native coronary artery with unspecified angina pectoris; H54.8 Legal blindness, as defined in USA; N18.9 Chronic kidney disease, unspecified; K21.9 Gastro-esophageal reflux disease without esophagitis; G47.33 Obstructive sleep apnea (adult) (pediatric); Z96.659 Presence of unspecified artificial knee joint; Z79.899 Other long term (current) drug therapy; Z99.81 Dependence on supplemental oxygen; Z87.01 Personal history of pneumonia (recurrent); Z93.3 Colostomy status; Z85.828 Personal history of other malignant neoplasm of skin; Z87.442 Personal history of urinary calculi; Z98.42 Cataract extraction status, left eye; Z98.41 Cataract extraction status, right eye; Z88.6 Allergy status to analgesic agent; Z88.8 Allergy status to other drugs, medicaments and biological substances; Z95.5 Presence of coronary angioplasty implant and graft; I25.2 Old myocardial infarction; Z90.89 Acquired absence of other organs; Z98.52 Vasectomy status; Z87.891 Personal history of nicotine dependence; Z79.52 Long term (current) use of systemic steroids; Z23 Encounter for immunization
CPT/HCPCS: 10081

== ENCOUNTER → 2019-04-27 | Outpatient (CLI) | payer OTHER ==
[~2019-04-27] MED LIST changes: +LIPITOR40 MG PO; +PROTONIX40 M2 PO; +ZPAK PO
--- NOTE | 2019-04-27 13:04 | NUR ---
Pain Clinic Assessment: 1. History of Osteoarthritis: ALL OVER History of Rheumatoid Arthritis: Not Applicable 2. Height: ft. in. cm. Weight: lb. oz. kg. Patient's BMI: 3. Vital Signs: BP: Pulse: Resp: Temp: 02 Sat: ECG Mon: 4. Pain Intensity: 2-3 5. Fall Risk: Dizziness: Needs help standing or walking: Fallen in the last 3 months: Fall risk comments: 6. Patient on Blood Thinner: None 7. History of Hypertension: Y 8. Opioid Therapy greater than 6 weeks: Y Opiate Contract Signed: 02/03/16 9. Risk Assessment Tool Provided: MOD 10. Functional Assessment Tool: 11. Recreational Drug Use: Never Drug Type: Tobacco Use: Heavy Tobacco Smoker Tobacco Type: Amount or Packs/day: How Many Years: Alcohol Use: No Frequency: Quant:
--- NOTE | 2019-04-27 13:25 | NUR ---
Pain Clinic Assessment: 1. History of Osteoarthritis: ALL OVER History of Rheumatoid Arthritis: Not Applicable 2. Height: ft. in. cm. Weight: lb. oz. kg. Patient's BMI: 3. Vital Signs: BP: Pulse: Resp: Temp: 02 Sat: ECG Mon: 4. Pain Intensity: 5 5. Fall Risk: Dizziness: N Needs help standing or walking: N Fallen in the last 3 months: N Fall risk comments: 6. Patient on Blood Thinner: None 7. History of Hypertension: Y 8. Opioid Therapy greater than 6 weeks: Y Opiate Contract Signed: 02/03/16 9. Risk Assessment Tool Provided: MOD 10. Functional Assessment Tool: 11. Recreational Drug Use: Never Drug Type: Tobacco Use: Heavy Tobacco Smoker Tobacco Type: Amount or Packs/day: How Many Years: Alcohol Use: No Frequency: Quant:
[2019-04-27 13:28] VITALS: BP 139/51
--- NOTE | 2019-05-01 07:52 | HPC ---
[facility] [place] [address] PAIN MANAGEMENT CONSULTATION Name: manny dejesus Room #: REG NICK Lindsay#: [id number] Admission: 04/27/19 Attend Phys: Desirae Brothers Discharge: Date of : 41 Report #: [id number] THIS REPORT FOR: //name// CC: Desirae Leyva MD DATE OF SERVICE: 04/27/2019 CHIEF COMPLAINT: Low back pain with spondylosis and osteoarthritis. HISTORY OF PRESENT ILLNESS: This is a very pleasant 74-year-old gentleman who returns to the pain clinic after several months of absence because he has been in the hospital in a rehab facility. He had a heart attack, had stents placed, and was deconditioned. He did go to the rehab facility where he spent a significant amount of time. He reports he has been home about a month now. While he was in the rehab facility, they did take him off all of his narcotics. He was having some hallucinations and they associated it with his opioids. The patient and family members report that once he returned home, he did start his oxycodone 5/325 again, instead of the Tylenol Extra Strength that they have been giving him at the rehab facility. Then, after a week or two, he did restart his OxyContin at 10 mg twice a day. He is here today for refills since he is out of his oxycodone rating his pain score at a 5/10. The patient's pain is in his right shoulder, bilateral wrists, and knees and his midthoracic back. It is an aching feeling, worse with standing and lifting his arms. He feels like sitting and using his medication are beneficial. He denies any problems with constipation. He is on oxygen today, though is having less short of breath that he had at previous visits to our clinic. His and caregiver are here present as well today. ALLERGIES: CODEINE, PIPERACILLIN, GABAPENTIN, AND TAZOBACTAM. CURRENT LIST OF MEDICATIONS: Percocet 5/325 p.r.n., iron, aspirin, Plavix 75 mg daily, Zoloft 100 mg daily, potassium 20 mEq daily, Imdur 120 mg daily, OxyContin 10 mg b.i.d., Demadex 20 mg daily, Voltaren gel as needed, Lipitor 40 mg daily, Protonix 40 mg daily, and supplemental oxygen. PQRS: 1. He has lost significant diffuse osteoarthritis throughout his upper and lower extremities, and spine. Denies any rheumatoid arthritis. 2. Height is 5 feet 4 inches. 3. Vital signs: Blood pressure 139/51, pulse 110, respirations 18, oxygen sat is 93 on 4 liters of nasal cannula. 4. The patient's pain score is 5/10. [address] [address] PAIN MANAGEMENT CONSULTATION Name: manny dejesus Room #: REG [facility] [id number] Admission: 04/27/19 Attend Phys: Desirae Brothers Discharge: Date of : 43 Report #: [id number] 5. Denies dizziness. He needs help walking. He is in a wheelchair today. He has not fallen in the last 3 months. 6. The patient is on Plavix and he does take medicine for hypertension. 7. Opiate therapy is greater than 6 weeks; therefore, an opioid signed contract is on the chart. His risk assessment tool is moderate. His functional assessment is 6/7. 8. Recreational drug use, he denies. He is a former smoker and does not drink alcohol. According to the prescription monitoring system, he last filled his pain medications on 04/04/2019. They do safeguard their medications, they have a safe at home. PHYSICAL EXAMINATION: GENERAL: This is an alert and oriented, 74-year-old, rating his pain score at 5/10 today. His affect is appropriate. There are no signs of overmedication. HEENT: Normocephalic, atraumatic. Extraocular eye muscles are intact. Hearing is decreased. He is wearing a nasal cannula. He has difficulty with vision due to macular degeneration. MUSCULOSKELETAL: The patient moves from sitting to standing very slowly. He is in a wheelchair today. He has tenderness in his right shoulder and bilateral wrists, worse with movement, pain in his midthoracic region as well as tenderness along his spine. He is deconditioned in his upper and lower extremities. IMPRESSION: 1. Severe chronic obstructive pulmonary disease with supplemental oxygen. 2. Recent heart attack with stents, on anticoagulation therapy. 3. Chronic low back pain with spondylosis and spinal stenosis. 4. Osteoarthritis. 5. Type 2 diabetic. 6. Osteoporosis. 7. Decreased vision due to ocular complications of macular degeneration and cataracts. 8. Management of high risk medications under terms of written opioid agreement. PLAN: 1. We discussed treatment options with the patient today. While the patient was in the rehab facility, he was weaned off his medications, and did go through withdrawal symptoms, it does sound like, and was tolerating and controlling his pain with only Tylenol Extra Strength. Upon arrival home, he has restarted his Percocet and then gradually his oxycodone. I explained to him our hope is to have him take the lowest most effective dose. He reports he was able to get by with just his oxycodone several times a day. After much discussion, it was decided for him to continue at oxycodone 5/325 three tablets a day with occasional 4 and to discontinue his OxyContin currently. The patient and family [facility] [address] [address] PAIN MANAGEMENT CONSULTATION Name: manny dejesus Room #: REG PADMINIChari Montoya#: [id number] Admission: 04/27/19 Attend Phys: Desirae Brothers Discharge: Date of : 43 Report #: [id number] are agreeable with this plan of care. 2. Scripts given today for #100 pills of Percocet 5/325 for today and 4-week release. These were transmitted electronically to [facility]. 3. The patient was instructed to call us if this is not controlling his pain and we will discuss treatment options, whether starting OxyContin again or increasing him to 4 tablets every day. The patient verbalizes understanding. 4. Dr. Spenser Leyva did come and collaborate care today and saw the patient as well. The patient will call if needed or return in 2 months for followup. <ELECTRONICALLY SIGNED> By: Desirae Brothers 05/01/19 [phone] Desirae Brothers /nt
== END ==
LOC: PAIN 06:56
DX: M47.816 Spondylosis without myelopathy or radiculopathy, lumbar region (principal); M19.90 Unspecified osteoarthritis, unspecified site; J44.9 Chronic obstructive pulmonary disease, unspecified; G89.29 Other chronic pain; E11.9 Type 2 diabetes mellitus without complications; M81.0 Age-related osteoporosis without current pathological fracture; Z79.891 Long term (current) use of opiate analgesic; Z88.5 Allergy status to narcotic agent; Z88.8 Allergy status to other drugs, medicaments and biological substances; Z79.899 Other long term (current) drug therapy; Z86.74 Personal history of sudden cardiac arrest; Z95.818 Presence of other cardiac implants and grafts

== ENCOUNTER → 2019-06-22 | Outpatient (CLI) | payer OTHER ==
[~2019-06-22] VITALS: Ht 160 cm; Wt 77.1 kg
[2019-06-22 11:08] VITALS: BP 157/73
--- NOTE | 2019-06-22 16:11 | HPC ---
[facility] [address] [place] [address] PAIN MANAGEMENT CONSULTATION Name: DONNY GARCIA Room #: REG NICK Lindsay#: [id number] Admission: 06/22/19 Attend Phys: Desirae Brothers Discharge: Date of : 41 Report #: [id number] THIS REPORT FOR: //name// CC: Desirae Leyva MD DATE OF SERVICE: 06/22/2019 CHIEF COMPLAINT: Low back pain with spondylosis and osteoarthritis. HISTORY OF PRESENT ILLNESS: This is a 74-year-old gentleman who returns to the pain clinic today for refill of his medications. He was recently seen in April where we had adjusted his medications slightly, taking him off his OxyContin, placing him only on oxycodone 5/325. The patient feels that 3 tablets every day is not quite enough to cover most of his pain. He did run out of his medications earlier this week because he was taking 4 tablets a day most days. He feels that he does well and is controlling his pain when he does take 4 a day. He is requesting a slight increase in that medication since he is no longer on his OxyContin. The patient complains of pain score of 4-5 today. Most of his pain is located in his shoulders and wrists and knees from his osteoarthritis. He does also have mid back pain. He says that his pain is worse with standing and lifting his arms. He is currently still sleeping in his recliner, gradually working to try and sleep in his bed and his has gotten for him a hospital bed on the second floor and has made adjustments in that room with a bathroom to make it easier for him. She has also set the room up with oxygen that he does wear on a daily basis. ALLERGIES: CODEINE, PIPERACILLIN, GABAPENTIN AND TAZOBACTAM. CURRENT LIST OF MEDICATIONS: OxyContin 5/325, Stiolto, potassium, Protonix, Lipitor, iron, aspirin, Plavix, Zoloft, Imdur, Demadex, Voltaren Gel and Tylenol Extra Strength. PQRS: 1. He has osteoarthritis in his hands, knees, shoulders and spine. Denies rheumatoid arthritis. 2. Height is 5 feet 3 inches, weight is 170, BMI is 30. 3. Vital Signs: Blood pressure 157/73, pulse is 97, respirations 20, oxygen sat is 98. 4. Pain score is 4-5. 5. Denies dizziness. He does need help walking. He is in a wheelchair today, has not fallen in the last 3 months. The patient is on Plavix as well as medicines for hypertension. [facility] [address] [place] [address] PAIN MANAGEMENT CONSULTATION Name: DONNY GARCIA Room #: REG NICK Montoya#: [id number] Admission: 06/22/19 Attend Phys: Desirae Brothers Discharge: Date of : 41 Report #: [id number] 6. His opioid therapy is greater than 6 weeks; therefore, an opioid signed contract is on the chart. Risk assessment is moderate. Functional assessment is . 7. Recreational drug use, he denies. He is a former smoker and does not drink alcohol. According to the prescription monitoring system, the patient is due to fill his medications next week. He is filling them in a timely fashion. PHYSICAL EXAMINATION: GENERAL: This is alert and orientated 74-year-old gentleman who appears his stated age, placing his current pain score at 4-5. He does not have any signs of being overmedicated. HEENT: Normocephalic, atraumatic. Extraocular eye muscles are intact. He is wearing a nasal cannula. Vision is diminished due to macular degeneration. LUNGS: Sounds diminished with 3 liters of nasal cannula. MUSCULOSKELETAL: The patient is in a wheelchair today. He has tenderness in his right shoulder as well as bilateral hands and knees as well as tenderness over his mid thoracic region. He is deconditioned in his upper and lower extremities. IMPRESSION: 1. Severe chronic obstructive pulmonary disease with supplemental oxygen. 2. Chronic low back pain with spondylosis and spinal stenosis. 3. Osteoarthritis. 4. Recent heart attack with stents. He is on anticoagulation therapy and Plavix. 5. Osteoporosis. 6. Management of high risk medications under terms of written opioid agreement. We reviewed the fact that opiate medications are being used to provide analgesia adequate to support activities of daily living, not attempting to achieve a specific pain score on the 0-10 Visual Analog Scale. The current opiate medications are providing sufficient analgesia to allow the patient to participate in activities of daily living. The patient is not exhibiting any aberrant behavior suggestive of drug diversion. The patient is not having any adverse reactions to medications. The patient is not suffering from daytime somnolence or mental acuity changes. The patient is managing opiate-induced constipation with appropriate [id number] agents and dietary considerations. The patient was counseled on concern for caution with operating a motor vehicle while using opiate medications. PLAN: 1. We discussed treatment options with the patient today. The patient feels that his pain is better controlled when he does take 4 oxycodone a day. He has run out earlier this week and started taking 1 OxyContin a day. I encouraged [facility] [address] [place] [address] PAIN MANAGEMENT CONSULTATION Name: DONNY GARCIA Room #: REG NICK Montoya#: [id number] Admission: 06/22/19 Attend Phys: Desirae Brothers Discharge: Date of : 41 Report #: [id number] the patient to stop his OxyContin and to discard this medication. We are trying to keep him off that medication. We will increase him slightly 1 pill a day of his oxycodone 5/325, allowing him 4 tablets every day. The patient believes that this will be enough to help control his pain. According to the CDC guidelines, this will still place him under 30 morphine mEq a day. We will e-prescribe this medication to his pharmacy allowing him to pick this up today since he is out for a total of 3 months. 2. I encouraged the patient to take his Voltaren Gel up to 4 times a day on his hands, shoulders and knees for his osteoarthritic changes since he is unable to take any anti-inflammatories due to his Plavix dose. 3. We did discuss the amount of Tylenol he is taking. I instructed him that every pain pill does have 325 mg of Tylenol. The patient encouraged to take no more than 2 Extra Strength arthritis or no more than 6 of the Extra Strength Tylenol pills a day. The patient verbalizes understanding. 4. The patient will return in 3 months. He will call if problems arise. The patient is seen today in collaboration with Dr. Spenser Leyva. <ELECTRONICALLY SIGNED> By: Desirae Brothers 06/22/19 1611 [id number] Desirae singleton
== END ==
LOC: PAIN 06:50
DX: M47.816 Spondylosis without myelopathy or radiculopathy, lumbar region (principal); M48.061 Spinal stenosis, lumbar region without neurogenic claudication; J44.9 Chronic obstructive pulmonary disease, unspecified; M19.90 Unspecified osteoarthritis, unspecified site; M81.0 Age-related osteoporosis without current pathological fracture; Z79.891 Long term (current) use of opiate analgesic

== ENCOUNTER 2019-07-15 10:37 | Inpatient (IN) | payer OTHER ==
[~2019-07-15] VITALS: Ht 162.6 cm; Wt 77.6 kg
[2019-07-15 10:39] VITALS: BP 139/72
--- NOTE | 2019-07-15 10:54 | EKG ---
[address] [employer] [place] [address] ELECTROCARDIOGRAM REPORT Name: DONNY GARCIA 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
[2019-07-15 11:11] LABS: HEMOGLOBIN 10.6 gm/dL (14.0-18.0); MCH 28.6 pg (26.0-34.0); MCHC 32.2 g/dL (28.0-37.0); MCV 88.9 fL (80.0-100.0); PLATELET COUNT 221 thou/uL (150-400); RBC 3.72 mil/uL (4.50-6.00); RDW 15.4 % (10.5-14.5); WBC 9.8 thou/uL (4.0-11.0)
[2019-07-15 11:12] LABS: ANION GAP 7 mmol/L (7-16); BUN 15 mg/dL (7-18); CHLORIDE 103 mmol/L (98-107); CO2 33 mmol/L (21-32); CREATININE 1.4 mg/dL (0.7-1.3); GLUCOSE 107 mg/dL (74-106); POTASSIUM 3.5 mmol/L (3.5-5.1); SODIUM 143 mmol/L (136-145)
[2019-07-15] MEDS ORDERED: PERCOCET 5-3251 EACH PO (11:12)
[2019-07-15 11:15] LABS: HCO3 29.5 mmol/L (22.0-26.0); PCO2 VENOUS 48.9 mmHg (41.0-51.0); PO2 VENOUS 55.6 mmHg (35.0-45.0)
[2019-07-15] MEDS ORDERED: DALIRESP500 MCG PO (11:15)
[2019-07-15 11:22] LABS: ALBUMIN 3.5 g/dL (3.4-5.0); SGOT 16 U/L (15-37); SGPT 26 U/L (30-65); TOTAL BILIRUBIN 0.3 mg/dL (<0.1-1.0); TOTAL PROTEIN 6.2 g/dL (6.4-8.2); TROPONIN-I <0.06 ng/mL (<0.06)
[2019-07-15] MEDS ORDERED: IRON160 M1 PO (11:22)
[2019-07-15] MEDS ORDERED: SUPER THERAVIT1 EACH PO (11:23)
[2019-07-15] MEDS ORDERED: ATIVAN0.5 M1 PO (11:24)
[2019-07-15] MEDS ORDERED: PREDNISONE 20 M20 M1 PO (11:25)
[2019-07-15 12:03] LABS: ABSOLUTE NEUTROPHILS 6.9 thou/uL (1.4-8.2); METAMYELOCYTES 1 %
[2019-07-15 12:04] LABS: ANISOCYTOSIS 1+; OVALOCYTES 1+
[2019-07-15 15:49] VITALS: BP 116/57
[2019-07-15 16:14] VITALS: BP 133/53
[2019-07-15 16:30] VITALS: BP 136/60
[2019-07-15] MEDS ORDERED: CORLANOR5 MG PO (17:07)
--- NOTE | 2019-07-15 18:55 | NUR ---
PT. ARRIVED AROUND 1600; AOX4; NO C/O CP; ON 3L O2; EDUCATED ABOUT FALL PRECAUTIONS; ST. UNDERSTANDING; SITTIN ON THE CHAIR; CALL LIGHT & PERSONAL ITEMS WITHIN REACH; ADMISSION PERFORMED; DR. CAMPO CONTACTED ABOUT MEDICATION; ORDERS RECEIVED; SR ON THE MONITOR; ASSESSMENT CHARGED; FOLLOWING POC;
[2019-07-15 19:30] VITALS: BP 123/57
[2019-07-16] VITALS (8 sets, daily range): BP systolic 90–136; BP diastolic 44–65
--- NOTE | 2019-07-16 05:33 | NUR ---
PT ADMITTED FROM ED APPROX 2215HRS. A&OX4. C/O GENERALIZED ABD PAIN PRN PAIN MEDS ORDERED. PT ASKING FOR PAIN MEDS OCCASIONALLY. PT BP ELEVATED SCHEDULED AND PRN MEDS GIVEN OVERNITE. CONTINUING TO RECHECK BP. DIALYSIS PT. MWF. LABS DRAWN THIS AM K REMAINS 5.8. PT HAS NEPHOLOGY CONSULTED. PT REPORTED MISSING DIALYSIS ON WED. DIALYSIS FISTULA ON . PT ANXIOUS OCCASIONALLY WALKING TO THE NURSE STATION. PT COOPERATIVE WITH CARE. NO N/V SINCE ARRIVAL TO THE FLOOR. PT REMAINS NPO R/T N/V WHILE PT PRESENTED TO ED AT HS. NPO EXCEPT FOR MEDS WITH SMALL SIPS OF H20
[2019-07-16 05:48] LABS: HEMATOCRIT 34.1 % (42.0-52.0); HEMOGLOBIN 10.9 gm/dL (14.0-18.0); MCH 28.5 pg (26.0-34.0); MCHC 32.1 g/dL (28.0-37.0); MCV 88.8 fL (80.0-100.0); RBC 3.84 mil/uL (4.50-6.00); RDW 15.5 % (10.5-14.5); WBC 12.2 thou/uL (4.0-11.0)
[2019-07-16 05:56] LABS: CALCIUM 8.9 mg/dL (8.5-10.1); CREATININE 1.3 mg/dL (0.7-1.3); POTASSIUM 3.5 mmol/L (3.5-5.1)
--- NOTE | 2019-07-16 06:21 | NUR ---
PT A&O X4 ABLE TO MAKE BASIC NEEDS KNOWN. [place] C/O PAIN X1 EFFECTIVELY CONTROLLED VIA PRN PAIN MEDS. SLEPT ON RECLINER. 2L O2 PER NC. CONT USES URINAL REQUIRES ASSISTANCE EMPTYING. PT PROVIDED WITH A WALKER AT HIS REQUEST.
--- NOTE | 2019-07-16 10:31 | EKG ---
[place] [address] 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
--- NOTE | 2019-07-16 17:23 | NUR ---
RECEIVED PT'S CARE AROUND 0710; PT. ON CHAIR; RESTING WITH EYES CLOSED; EQUAL CHEST RISING NOTICED; DURING AM ASSESSMENT PT. C/O L. SIDE CHEST PAIN; 10/28; SB NITROGLYCERING GIVEN X2; ST. DECREASE CP; 07/31; ST ON THE MONITOR; EKG ORDER PROTOCOL; NO CHANGES NOTICED FROM LAST EKG; AM MEDICATIONS GIVEN; RE-ASSESSMENT PT. ST. FEELING BETTER; TROPONIN ELEVATED; PHYSICIAN NOTIFIED; NO NEW ORDERS; CARDIOLOGY NOTIFIED; DR. SARITHA CAMARILLO LATER ON PT.; THROUGH THE DAY PT. ST. DECREASE CHEST PAIN; C/O BACK PAIN; ST. TO TAKE PAIN MEDICATION QID & NOT TID; MEDICATION CHANGE LAST WEEK; HOME MEDS UPDATE; WILL PASS ON REPORT; THROUGH THE DAY NO C/O CP; EDUCATED ABOUT PAIN MANAGEMENT; ST. UNDERSTANDING; AT THE BED SIDE THROUGH THE DAY; HAD BM; ASSESSMENT CHARGED; FOLLOWING POC; ST. ON THE MONITOR; MONITORING; WILL PASS ON REPORT;
[2019-07-17 04:27] VITALS: BP 109/57
--- NOTE | 2019-07-17 07:32 | NUR ---
ASSESSMENTS CHARTED, MEDS GIVEN CHARTED. PATIENT IN RECLINER DURING SHIFT. C/O CHRONIC PAIN, GIVEN PAIN MEDS THAT WERE SCHEDULED. COUGHED FREQUENTLY DURING THE NIGHT, POST NASAL DRIP, SINUS TACH WITH BBB ON TELEMETRY. DIURESING. ON 2 LITERS NASAL CANULA SAME AT HOME. PATIENT REQUESTED TESSLA PEARLS THIS MORNING AND SOME MUCONEX. PASSED INFO TO DAY NURSE TO REQUEST. PLANOF CARE IS TO GO HOME TODAY.
[2019-07-17 08:00] VITALS: BP 111/54
--- NOTE | 2019-07-17 08:43 | HC ---
[facility] [place] [address] CONSULTATION Name: DONNY GARCIA Room #: 215-P [facility] [place]#: [id number] Admission: 07/15/19 Attend Phys: Lauro Mandujano MD Discharge: Date of : 43 Report #: [id number] THIS REPORT FOR: //name// CC: David Mandujano DATE OF SERVICE: 07/16/2019 CARDIOLOGY CONSULTATION INDICATION: Chest pain. HISTORY OF PRESENT ILLNESS: This is a pleasant 74-year-old gentleman with a history of CAD, myocardial infarction, stent placement, severe COPD, oxygen dependent, diastolic heart failure, hypertension, hyperlipidemia, arthritis, glaucoma, and chronic renal insufficiency. He woke up yesterday with chest discomfort and not feeling well. He took a nitroglycerin without any relief. He presented to the ER for an evaluation. He reports no changes to his respiratory status. He denies any recent fever, chills, cough, or diarrhea. ALLERGIES: Include CODEINE, PIPERACILLIN, AND GABAPENTIN. MEDICATIONS: Please see the MAR for full listing. SOCIAL HISTORY: Denies tobacco use, oxygen dependent. FAMILY HISTORY: Negative for premature CAD. PAST MEDICAL HISTORY: CAD with stent to the left main and left circumflex in January. Return for staged angioplasty with rotational atherectomy and stent placement to the proximal LAD. Has a severe obstruction in the ostial RCA, COPD, oxygen dependent, general debility history of diastolic heart failure, hypertension, hyperlipidemia, arthritis, and glaucoma. REVIEW OF SYSTEMS: A full 10-point review of systems performed. Only the pertinent positives and negatives are described in the HPI. PHYSICAL EXAMINATION: VITAL SIGNS: Blood pressure is 130/80 and heart rate is 108 beats per minute. GENERAL APPEARANCE: An elderly appearing male sitting in a chair, in no acute distress. HEENT: Normocephalic, atraumatic. Oral mucosa moist. NECK: Supple. LUNGS: Diminished breath sounds at bases. CARDIAC: Tachycardic. S1, S2 positive. ABDOMEN: Soft, nontender. [facility] [address] [address] CONSULTATION Name: DONNY GARCIA Room #: [address] [place] [address] [place] [facility].#: [id number] Admission: 07/15/19 Attend Phys: Lauro Mandujano MD Discharge: Date of : 43 Report #: [id number] EXTREMITIES: Trace edema, no cyanosis. ECG reveals sinus tachycardia, bifascicular block. LABORATORY VALUES: White count is 12.2, hemoglobin 10.9. Peak troponin 0.72. Hemoglobin is 10.6. ASSESSMENT AND PLAN: 1. Acute coronary syndrome, the patient with chronic angina. He has anginal episodes infrequently. He remained stable during this hospitalization. I have discussed with him the pros and cons of cardiac catheterization versus medical therapy. He would like to continue with medications at this time. He would like to continue with medical therapy at this time. Continue on aspirin and Plavix therapy. Continue with long-acting nitrates. 2. COPD, oxygen dependent. Continue with oxygen and inhalers. 3. Diastolic heart failure, continue with low dose diuretic therapy. Stable with no symptoms of congestion at this time. 4. Hypercholesterolemia, continue with statin therapy. <ELECTRONICALLY SIGNED> By: David Crane MD 07/17/19 0843 1110 1136 David Crane MD /nt
[2019-07-17] MEDS ORDERED: METOPROLOL SUCC25 M1 PO (10:21)
[2019-07-17 10:25] VITALS: BP 109/75
--- NOTE | 2019-07-17 11:29 | NUR ---
PT HAS DC ORDERS, ALL WERE PRINTED AND REVIEWED WITH PT, INCLUDING MEDS AND FOLLOW UP INSTRUCTIONS, PT VERBALIZED UNDERSTANDING, TELE REMOVED, RIGHT AC IV REMOVED, PT DRESSING, TRANSPORT WILL BE HERE TO PICK PT UP AT 12 AND TAKE HIM TO MAIN ENTRANCE TO MEET .
== END 2019-07-17 12:00 | disposition home or self-care (01) | DRG 281 ==
LOC: ER 10:37 → EROBS 15:53 → 2N 15:53 → ENTRNSPT 07-17 11:29 → 2N 07-17 12:00 → EDTRNSPTSTS 07-17 12:08
PROVIDERS: Emergency Medicine; ADMIT Family Medicine
DX: I21.4 Non-ST elevation (NSTEMI) myocardial infarction (principal); I50.30 Unspecified diastolic (congestive) heart failure; I13.0 Hypertensive heart and chronic kidney disease with heart failure and stage 1 through stage 4 chronic kidney disease, or unspecified chronic kidney disease; I25.110 Atherosclerotic heart disease of native coronary artery with unstable angina pectoris; J44.9 Chronic obstructive pulmonary disease, unspecified; E78.5 Hyperlipidemia, unspecified; I45.10 Unspecified right bundle-branch block; M81.0 Age-related osteoporosis without current pathological fracture; D72.829 Elevated white blood cell count, unspecified; C44.300 Unspecified malignant neoplasm of skin of unspecified part of face; C44.609 Unspecified malignant neoplasm of skin of left upper limb, including shoulder; I24.9 Acute ischemic heart disease, unspecified; I25.10 Atherosclerotic heart disease of native coronary artery without angina pectoris; C44.602 Unspecified malignant neoplasm of skin of right upper limb, including shoulder; C44.40 Unspecified malignant neoplasm of skin of scalp and neck; F32.9 Major depressive disorder, single episode, unspecified; M54.9 Dorsalgia, unspecified; G89.29 Other chronic pain; H35.30 Unspecified macular degeneration; H26.9 Unspecified cataract; N18.9 Chronic kidney disease, unspecified; H40.9 Unspecified glaucoma; E78.00 Pure hypercholesterolemia, unspecified; R00.0 Tachycardia, unspecified; Z96.659 Presence of unspecified artificial knee joint; Z98.52 Vasectomy status; I25.2 Old myocardial infarction; Z87.442 Personal history of urinary calculi; Z79.82 Long term (current) use of aspirin; Z91.81 History of falling; Z99.81 Dependence on supplemental oxygen; Z87.01 Personal history of pneumonia (recurrent); Z79.891 Long term (current) use of opiate analgesic; Z79.899 Other long term (current) drug therapy; Z95.5 Presence of coronary angioplasty implant and graft; Z88.1 Allergy status to other antibiotic agents; Z88.5 Allergy status to narcotic agent; Z88.8 Allergy status to other drugs, medicaments and biological substances
CPT/HCPCS: 10081

== ENCOUNTER → 2019-08-22 | Outpatient (CLI) | payer OTHER ==
[~2019-08-22] MED LIST changes: +ATIVAN0.5 M1 PO; +CORLANOR5 MG PO; +IRON160 M1 PO; +SUPER THERAVIT1 EACH PO
== END ==
LOC: RAD 12:14
DX: J98.4 Other disorders of lung (principal); J44.9 Chronic obstructive pulmonary disease, unspecified

== ENCOUNTER → 2019-08-23 | Outpatient (CLI) | payer OTHER | LOC: SJCVC 14:56 | DX: I45.10 Unspecified right bundle-branch block (principal); R94.31 Abnormal electrocardiogram [ECG] [EKG]; I25.118 Atherosclerotic heart disease of native coronary artery with other forms of angina pectoris; I13.0 Hypertensive heart and chronic kidney disease with heart failure and stage 1 through stage 4 chronic kidney disease, or unspecified chronic kidney disease; E11.22 Type 2 diabetes mellitus with diabetic chronic kidney disease; N18.9 Chronic kidney disease, unspecified; I50.9 Heart failure, unspecified; R00.0 Tachycardia, unspecified; J43.9 Emphysema, unspecified; E78.5 Hyperlipidemia, unspecified; I25.2 Old myocardial infarction; K21.9 Gastro-esophageal reflux disease without esophagitis; Z87.891 Personal history of nicotine dependence; Z79.82 Long term (current) use of aspirin; Z79.899 Other long term (current) drug therapy ==

== ENCOUNTER → 2019-10-30 | Outpatient (CLI) | payer OTHER ==
[~2019-10-30] MED LIST changes: +KAPSPARGO SPRIN25 MG PO
--- NOTE | 2019-10-31 11:17 | HPC ---
[facility] [address] [place] [address] PAIN MANAGEMENT CONSULTATION Name: DONNY GARCIA Room #: CARMEN ROMERO Lindsay#: [id number] Admission: 10/30/19 Attend Phys: Desirae Brothers Discharge: Date of : 43 Report #: [id number] THIS REPORT FOR: cc: Lauro Mandujano MD, Neal A. MD Hocker,Desirae BALTAZAR ~ CC: Spenser Leyva MD DATE OF SERVICE: 10/30/2019 This is a tele-med appointment that the patient has agreed upon to do via the telephone. The patient states he has no audiovisual capability on his home computer. We spoke from 9287-1513 hours for this tele-med appointment for his medication refill. CHIEF COMPLAINT: Low back pain with spondylosis and osteoarthritis. HISTORY OF PRESENT ILLNESS: This is a very pleasant 74-year-old gentleman who I am speaking with via the telephone for his tele-med appointment for refill of his opioid medications that he takes for his ongoing low back pain and mid back pain. He also complains of some hand, wrist and shoulder pain as well as bilateral knee pain with his osteoarthritis. He states that he typically takes 3 tablets every day of his oxycodone tablets, but occasionally will require a fourth pill in the middle of the night if he is up. Today, he is rating his pain a 4/10, is an aching pain that he feels is well controlled with his current medication regimen. He states he does walk from his chair to the steps, uses a chairlift to take him upstairs to his bed. He walks unassisted at that time to his bathroom. Typically, he does use a walker, but is unable to get into his bathroom in the upstairs hallways. He states he does continue to wear oxygen at 3 liters while sitting down and when he is active, he does increase it to 4-5 liters per nasal cannula. Today, he is requesting a refill of his opioid medications that he does not experience any daytime somnolence or constipation issues as a result of. ALLERGIES: CODEINE, TAZOBACTAM, PIPERACILLIN AND GABAPENTIN. CURRENT MEDICINES: Metoprolol, potassium, oxycodone 5/325, ____ inhaler, Protonix, ProAir, Lipitor, iron, aspirin, Plavix, sertraline, Imdur, Demadex, and Voltaren gel. PQRS: 1. He has osteoarthritis of multiple joints that is diffuse. He denies any rheumatoid arthritis. 2. Height, weight, and vital signs are deferred due to this being until a tele-med conference. 3. Pain score is 4/10. [address] [address] PAIN MANAGEMENT CONSULTATION Name: DONNY GARCIA Room #: REG NICK Montoya#: [id number] Admission: 10/30/19 Attend Phys: Desirae Brothers Discharge: Date of : 43 Report #: [id number] 4. Denies dizziness. He needs assistance with walking, uses a walker and a chair lift. He is on Plavix. He also takes medicine for hypertension. 5. Opioid therapy is greater than 6 weeks; therefore, an opioid signed contract is on the chart. Risk assessment is moderate. Functional assessment 6-7. 6. Recreational drug use, he denies. He is a former smoker and does not drink alcohol. According to the prescription monitoring system, the patient is due to fill his medications next week, filling them in a timely fashion from Dr. Spenser Leyva. He does also take some lorazepam on a very p.r.n. basis and has been taking this medicine combination for quite some time and is stable. According to the CDC guidelines, his morphine mEq per day is 35. REVIEW OF SYSTEMS: Due to the tele-med, he is alert and orientated 74-year-old answering all my questions appropriately, in complete sentences. He is a good historian. He reports to me that he has generalized aches and pains in numerous joints and across his mid and low back. He does use a walker for ambulation. IMPRESSION: 1. Severe chronic obstructive pulmonary disease with supplemental oxygen. 2. Chronic low back pain with spondylosis and spinal stenosis. 3. Osteoarthritis of multiple joints. 4. Recent stents, on anticoagulation therapy. 5. Osteoporosis. 6. Management of high risk medications under written opioid agreement. We reviewed the fact that opiate medications are being used to provide analgesia adequate to support activities of daily living, not attempting to achieve a specific pain score on the 0-10 Visual Analog Scale. The current opiate medications are providing sufficient analgesia to allow the patient to participate in activities of daily living. The patient is not exhibiting any aberrant behavior suggestive of drug diversion. The patient is not having any adverse reactions to medications. The patient is not suffering from daytime somnolence or mental acuity changes. The patient is managing opiate-induced constipation with appropriate jtuk-bsi-vmchsfo agents and dietary considerations. The patient was counseled on concern for caution with operating a motor vehicle while using opiate medications. PLAN: 1. We discussed treatment options with the patient today. The patient finds his medications very beneficial. He takes an average of 3 every day with occasionally taking the fourth depending on activity. He states he has no problems with constipation or other side effects as a result of his medications. 2. We will send these medications for 120 of oxycodone 5/325 to his local pharmacy electronically by Dr. Spenser Leyva for 2 months, then I instructed the patient we will need to see him. We have not seen him since June since [facility] [address] [place] [address] PAIN MANAGEMENT CONSULTATION Name: DONNY GARCIA Room #: REG Chari Montoya#: [id number] Admission: 10/30/19 Attend Phys: Desirae Brothers Discharge: Date of : 43 Report #: [id number] the COVID virus since the patient is very immunocompromised and has significant respiratory issues. He has been safer at home. We are hopeful that by December we will be able to have an in-person appointment. The patient verbalizes understanding. 3. The patient care given in collaboration with Dr. Spenser Leyva today. <ELECTRONICALLY SIGNED> By: Desirae Brothers 10/31/19 1117 1316 1540 Desirae Brothers /lucho
== END ==
LOC: TELEPC 06:55 → PAIN 10:49
DX: M47.816 Spondylosis without myelopathy or radiculopathy, lumbar region (principal); M19.90 Unspecified osteoarthritis, unspecified site; J44.9 Chronic obstructive pulmonary disease, unspecified; M48.061 Spinal stenosis, lumbar region without neurogenic claudication; M81.0 Age-related osteoporosis without current pathological fracture; F11.20 Opioid dependence, uncomplicated; Z79.899 Other long term (current) drug therapy; Z88.5 Allergy status to narcotic agent; Z88.2 Allergy status to sulfonamides; Z88.8 Allergy status to other drugs, medicaments and biological substances; Z88.0 Allergy status to penicillin

== ENCOUNTER → 2020-01-01 | Outpatient (CLI) | payer OTHER ==
[~2020-01-01] MED LIST changes: +OXYCODON-ACETA1 EAC1 PO; +OXYCODONE-APAP1 TAB PO; +SINGULAIR 10 MG10 MG PO
--- NOTE | 2020-01-02 07:44 | HPC ---
[facility] [address] [place] [address] PAIN MANAGEMENT CONSULTATION Name: DONNY GARCIA Room #: REG NICK Lindsay#: [id number] Admission: 01/01/20 Attend Phys: Desirae Brothers Discharge: Date of : 43 Report #: [id number] THIS REPORT FOR: cc: Lauro Mandujano MD, Neal A. MD Hocker,Desirae BALTAZAR ~ CC: Spenser Leyva MD DATE OF SERVICE: 01/01/2020 This is a telemedicine appointment. The patient has agreed on via the telephone, speaking with him from 9:30-9:50 for his medication refills. CHIEF COMPLAINT: Low back pain with spondylosis and osteoarthritis. HISTORY OF PRESENT ILLNESS: This is a pleasant 74-year-old gentleman who I am speaking with via the telephone today for a telemedicine appointment. He does have significant respiratory problems and is at home during this COVID outbreak. Today, he is complaining of pain of a 6/10 in his right wrist and shoulder as well as ongoing hand pain due to his osteoarthritis. He states the weather changes have been increasing his arthritis pain quite significantly. He also reports that he has been having more difficulty breathing due to the humidity. They did recently buy a dehumidifier and he is hopeful that will help with some of his breathing problems. He states that his pain medicine does not seem to be lasting as long as it used to, typically about 5 hours a day as opposed to 6-7 as it used to. He is wondering if there is a possibility of increasing his pain medication, either in strength or in number of pills provided per day. The patient denies any problems with constipation. He does sleep off and on throughout the day only for a few hours at a time. He does not associate this with daytime sleepiness as a result of medication. He states that he sleeps in his recliner and that is the longest that he can sleep at one time. He does wear oxygen 4-5 liters per nasal cannula. ALLERGIES: CODEINE, TAZOBACTAM, PIPERACILLIN, AND GABAPENTIN. CURRENT LIST OF MEDICATIONS: Metoprolol, potassium, oxycodone, Protonix, ProAir, Lipitor, iron, aspirin, Plavix, sertraline, Imdur, Demadex, Voltaren gel and Singulair. PQRS: 1. He has osteoarthritis of multiple joints that is diffuse in his hands, shoulders, knees and wrists. Denies any rheumatoid arthritis. 2. Height, weight and vital signs were deferred due to a telemedicine [facility] [address] [place] [address] PAIN MANAGEMENT CONSULTATION Name: DONNY GARCIA Room #: REG [facility]#: [id number] Admission: 01/01/20 Attend Phys: Desirae Brothers Discharge: Date of : 43 Report #: [id number] appointment. Pain score is 6/10. The patient denies dizziness. He needs assistance with walking. He has a walker and a chair lift. He is on Plavix. He also takes medicine for hypertension. Opioid therapy is greater than 6 weeks; therefore, an opioid signed contract is on the chart. Risk assessment is moderate. Functional assessment is 67/70. 3. Recreational drug use, he denies. He is a former smoker and does not drink alcohol. According to the prescription monitoring system, he is filling appropriately. PHYSICAL EXAMINATION: This is review of systems due to a telemed appointment. He is answering all questions appropriately. He is alert and orientated. He is a good historian. The patient reports increased pain in his right wrist and shoulder. Does have tenderness in his knees and ankles as well and does not ambulate unless he uses a walker or a chair lift. IMPRESSION: 1. Severe chronic obstructive pulmonary disease with supplemental oxygen. 2. Low back pain with spondylosis and spinal stenosis. 3. Osteoarthritis involving multiple joints, shoulders, wrists, ankles, knees. 4. Osteoporosis. 5. Anticoagulation therapy. 6. Management of high risk medications under terms of written opioid agreement. We reviewed the fact that opiate medications are being used to provide analgesia adequate to support activities of daily living, not attempting to achieve a specific pain score on the 0-10 Visual Analog Scale. The current opiate medications are providing sufficient analgesia to allow the patient to participate in activities of daily living. The patient is not exhibiting any aberrant behavior suggestive of drug diversion. The patient is not having any adverse reactions to medications. The patient is not suffering from daytime somnolence or mental acuity changes. The patient is managing opiate-induced constipation with appropriate xlqj-pju-rdeneda agents and dietary considerations. The patient was counseled on concern for caution with operating a motor vehicle while using opiate medications. PLAN: 1. We discussed treatment options with the patient today. The patient feels that he is having either end of dose failure of his medications or is requiring an increase in the amount of medication he does take per day. In the past, the patient had been on OxyContin as well as a breakthrough pain medicine. We have been trying to keep him at the lowest most effective dose due to his breathing issues. I discussed this case with Dr. Spenser Leyva who is agreeable to increase his oxycodone slightly to 7.5 mg/325 continuing at 4 times a day. This will be sent electronically by Dr. Spenser Leyva to his pharmacy for today and [address] supply[address] [address] PAIN MANAGEMENT CONSULTATION Name: DONNY GARCIA Room #: CARMEN ROMERO Lindsay#: [id number] Admission: 01/01/20 Attend Phys: Desirae Brothers Discharge: Date of : 43 Report #: [id number] 2. The patient states that the Voltaren gel is beneficial on his arthritic joints. His will have [facility], his mail of pharmacy, send a refill request that we will fill for an additional 6 months. 3. The patient reports he is having eye surgery this week to help with his cataracts and then another one in 2 weeks. Based on this, I feel like in 2 months the patient should be able to come for an appointment to our clinic since we have not seen him in the clinic since June. Hopefully, the COVID outbreak will have lessened by this time period as well. 4. The patient is seen today in collaboration with Dr. Spenser Leyva for this telemed appointment. <ELECTRONICALLY SIGNED> By: Desirae Brothers 01/02/20 0744 1048 1104 Desirae Brothers /nt
== END ==
LOC: PAIN 09-14 09:53 → TELEPC 06:58
PROVIDERS: ATTEND Clinical Nurse Specialist Adult Health
DX: M47.816 Spondylosis without myelopathy or radiculopathy, lumbar region (principal); J44.9 Chronic obstructive pulmonary disease, unspecified; M48.061 Spinal stenosis, lumbar region without neurogenic claudication; M81.0 Age-related osteoporosis without current pathological fracture; F11.20 Opioid dependence, uncomplicated; Z79.01 Long term (current) use of anticoagulants; Z88.8 Allergy status to other drugs, medicaments and biological substances; Z79.899 Other long term (current) drug therapy

== ENCOUNTER 2020-01-02 14:50 | Emergency (ER) | payer OTHER ==
[~2020-01-02] VITALS: Ht 177.8 cm; Wt 86.2 kg
--- NOTE | ~2020-01-02 | EMS ---
[facility] [address] [place] [address] EMS Patient Care Report Name: DONNY GARCIA Room #: REG BULMARO Montoya#: [id number] Admission: 01/02/20 Attend Phys: Discharge: Date of : 43 Report #: [id number] THIS REPORT FOR: //name// Report Transmitted: 01/02/2020 16:50 EMS Care Summary [facility] MED-ACT Incident [id number] @ 01/02/2020 14:13 Incident Location [address] [place] [address] Patient DONNY GARCIA Male, 74 Years 1945 Patient Address [address] [place] [address] Patient History Congestive Heart Failure (CHF),Hypertension (HTN),Cardiac - Stent, Patient Allergies No known allergies, Chief Complaint Cardiac arrest Disposition Transported Lights/[place] Reason Cardiac Arrest/ Transported To [facility] Narrative [id number] responded to above address for a C1C non-breather. On scene, the crew finds an unresponsive 74/M patient supine on a driveway near a car. Family on scene state that patient just returned from having cataract surgery and became unresponsive in the driveway of their home. They attempted CPR in the car until Molly MELENDEZ arrived, extracted patient from the car, and started compressions with pt supine on the driveway. On EMS arrival, pt is found supine on a hot [facility] [address] [place] [address] EMS Patient Care Report Name: DONNY GARCIA Room #: REG Lindsay#: [id number] Admission: 01/02/20 Attend Phys: Discharge: Date of : 43 Report #: [id number] in the sun. Pt lifted and secured to cot and moved to a shady area to continue running the code. Molly has already established an airway with a size 4 igel and applied EtCO2. Pt ventilated with BVM with 15 lpm O2. Molly states the AED has advised "no shock" twice. Pt's rhythm is initially asystole. IV attempted as noted. IO established in pt's L proximal tibia. 1 mg 1:10,000 epi pushed IO. 500 cc NS bag hung and pressure infused. After approx 4 minutes a pulse is felt, although quickly lost. Compressions restarted and another 1 mg 1:10,000 epi pushed IO. After 2 minutes of compressions, a strong pulse is present and pt re-triaged critical. Pt is breathing spontaneously although remains unresponsive. VS, ECG, 12-lead, pt moved to [facility] via cot and secured on NORA back board. VS repeated as noted. Pt closely monitored en route to [facility]. On arrival, pt moved via cot to 8 and report delivered to the team including physician. Initial Vitals @14:39P: 98,R: 14,BP: 172/70,Pain: 0/10,GCS: 3,Glucose: 320,EtCO2: 76,SpO2: 92,Revised Trauma: 8, @14:45P: 68,R: 16,BP: 133/60,Pain: 0/10,GCS: 3,EtCO2: 57,SpO2: 95,Revised Trauma: 8, @14:40P: 61,R: 15,Pain: 0/10,GCS: 3,EtCO2: 74,SpO2: 95,OK Suspected: false @14:22P: 0,R: 14,Pain: 0/10,GCS: 3,Revised Trauma: 4, Assessments @14:23MENTAL:Unresponsive,SKIN:Pale,HEENT:Neck/Airway: No Abnormalities,LUNG SOUNDS:ABDOMEN:PELVIS//GI:EXTREMITIES:PULSE:NEURO: Impression Cardiac arrest Procedures @14:4012-Lead ECGResponse: UnchangedSucceeded@14:30Epinephrine 1:10 - 1 Milligrams (mg) - Intraosseous (IO)Response: Unchanged@PTAResponse: UnchangedSucceeded@14:36Epinephrine 1:10 - 1 Milligrams (mg) - Intravenous (IV)Response: Improved@14:28Saline Lock 0cc (20 ga) Site: Antecubital-LeftResponse: UnchangedFailed@14:29Normal Saline (.9% NaCl) 500cc (EZ-IO (Blue 25mm)) Site: WD-Xvszr-Cxtg ProximalResponse: UnchangedSucceeded@PTAiGEL Complications: None,Response: ImprovedSucceeded@PTAGeneral CommentsResponse: Unchanged Timeline ADVISER SALES,Response: UnchangedSucceeded, ADVISER SALES,iGEL Complications: None,,Response: ImprovedSucceeded, ADVISER SALES,General Comments,Response: Unchanged 14:11,Call Received 14:11,Psap Call 14:13,Dispatched [address] [address] EMS Patient Care Report Name: DONNY GARCIA Room #: CARMEN Mnotoya#: [id number] Admission: 07/14/20 Attend Phys: Discharge: Date of : 41 Report #: [id number] 14:13,En Route 14:21,On Scene 14:22,At Patient 14:22,BP: 0/ M,PULSE: 0,RR: 14 R,SPO2: Ox,ETCO2: ,BG: ,PAIN: 0,GCS: 3, 14:28,Saline Lock 0cc 20 ga Site: Antecubital-Left,Response: UnchangedFailed, 14:29,Normal Saline (.9% NaCl) 500cc EZ-IO (Blue 25mm) Site: NF-Anykk-Vgim Proximal,Response: UnchangedSucceeded, 14:30,Epinephrine 1:10 - 1 Milligrams (mg) - Intraosseous (IO),Response: Unchanged 14:36,Epinephrine 1:10 - 1 Milligrams (mg) - Intravenous (IV),Response: Improved 14:39,BP: 172/70 M,PULSE: 98,RR: 14 R,SPO2: 92 Ox,ETCO2: 76 ,B,PAIN: 0,GCS: 3, 14:40,12-Lead ECG,Response: UnchangedSucceeded, 14:40,BP: / M,PULSE: 61,RR: 15 R,SPO2: 95 Ox,ETCO2: 74 ,BG: ,PAIN: 0,GCS: 3, 14:44,Depart Scene 14:45,BP: 133/60 M,PULSE: 68,RR: 16 R,SPO2: 95 Ox,ETCO2: 57 ,BG: ,PAIN: 0,GCS: 3, 14:48,At Destination 15:45,Call Closed Disclaimer v1.1 Copyright 2020 [employer] This EMS Care Summary contains data elements from the applicable legal record (which may be displayed differently). It is designed to provide pertinent information for the following purposes: continuity of care, clinical quality, and state data reporting. The complete legal record is available to ED staff and administrators of the receiving hospital in ES's Patient Tracker. All data is provided "as is."
[2020-01-02 15:33] LABS: BE(vivo) -10.3 mmol/L (-2 to +3); PCO2 51.2 mmHg (35.0-45.0); pH 7.164 (7.360-7.450); sO2 98.8 % (92.0-98.0)
[2020-01-02 15:36] LABS: CALCIUM 8.2 mg/dL (8.5-10.1); CREATININE 2.1 mg/dL (0.7-1.3); POTASSIUM 5.8 mmol/L (3.5-5.1)
[2020-01-02 15:41] LABS: HEMATOCRIT 30.2 % (42.0-52.0); HEMOGLOBIN 9.3 gm/dL (14.0-18.0); MCV 93.7 fL (80.0-100.0); PLATELET COUNT 385 thou/uL (150-400); RBC 3.22 mil/uL (4.50-6.00); RDW 15.6 % (10.5-14.5)
[2020-01-02 15:46] LABS: ALBUMIN 3.3 g/dL (3.4-5.0); DIRECT BILIRUBIN 0.1 mg/dL (<0.1-0.2); TOTAL BILIRUBIN 0.3 mg/dL (0.2-1.0); TOTAL PROTEIN 6.1 g/dL (6.4-8.2); TROPONIN-I 0.33 ng/mL (<0.06)
[2020-01-02 16:05] LABS: ABSOLUTE NEUTROPHILS 17.2 thou/uL (1.4-8.2); METAMYELOCYTES 1 %
--- NOTE | 2020-01-02 17:08 | EKG ---
[facility] [place] [address] ELECTROCARDIOGRAM REPORT Name: DONNY GARCIA Room #: REG [facility].#: [id number] Admission: 01/02/20 Attend Phys: Discharge: Date of : 43 Report #: [id number] THIS REPORT FOR: cc: Lauro Mandujano MD, Neal A. 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
[2020-01-02 18:23] VITALS: BP 00/00
== END 2020-01-02 18:23 ==
LOC: ER 14:50
PROVIDERS: Emergency Medicine
DX: I46.9 Cardiac arrest, cause unspecified (principal); J96.90 Respiratory failure, unspecified, unspecified whether with hypoxia or hypercapnia; R79.89 Other specified abnormal findings of blood chemistry; J44.9 Chronic obstructive pulmonary disease, unspecified; E78.5 Hyperlipidemia, unspecified; I13.0 Hypertensive heart and chronic kidney disease with heart failure and stage 1 through stage 4 chronic kidney disease, or unspecified chronic kidney disease; N18.9 Chronic kidney disease, unspecified; I50.9 Heart failure, unspecified; Z79.82 Long term (current) use of aspirin; Z79.899 Other long term (current) drug therapy; Z88.1 Allergy status to other antibiotic agents; Z88.8 Allergy status to other drugs, medicaments and biological substances; Z88.5 Allergy status to narcotic agent